=== PATIENT | male | born 1990 | race Caucasian/White ===

== ENCOUNTER 2020-03-20 14:04 | Outpatient (REF) | payer OTHER, SELFPAY | END 2020-03-20 14:05 | disposition home or self-care (01) | LOC: HO.LAB 14:04 | PROVIDERS: Visit Provider Internal Medicine | DX: Z20.822 Contact with and (suspected) exposure to COVID-19 (principal) | CPT/HCPCS: 36415; C9803; U0003 ==

== ENCOUNTER 2020-09-12 08:08 | Emergency (ER) | payer OTHER, SELFPAY ==
--- NOTE | ~2020-09-12 | US_ITS ---
EXAMINATION: US ABDOMEN LIMITED CLINICAL INFORMATION: Pain. COMPARISON: None TECHNIQUE: Real-time imaging of the right upper quadrant abdominal viscera. FINDINGS: PANCREAS: The visualized portion of the pancreas head and body are normal, portion of the pancreatic body and tail, not visualized are obscured by bowel gas. LIVER: Normal. The liver is normal in size. The liver contour is normal. Parenchymal echogenicity is normal. No focal hepatic lesion. There is no intrahepatic biliary duct dilatation seen. GALLBLADDER: There are numerous gallstones. No thickening of the gallbladder wall, no pericholecystic fluid collection, no Henderson sign. There is left epigastric pain. COMMON BILE DUCT: Normal in caliber measuring 0.3 cm in diameter. RIGHT KIDNEY: Normal. No hydronephrosis. No renal calculi or focal parenchymal lesions. The kidney measures 10.1 cm in maximum dimension. FREE FLUID: None. US/US abdomen limited IMPRESSION: There are numerous gallstones. There is however no ultrasound evidence of acute cholecystitis. If there is high index of suspicion for possible mild cholecystitis, May consider correlation with follow-up HIDA scan.
[2020-09-12 08:09] VITALS: BP 132/84; PULSE 70; O2SAT 100
[2020-09-12 08:11] VITALS: BP 137/72; PULSE 73; RESP 18; TEMP 36.8; O2SAT 99; BMI 33.7
--- NOTE | 2020-09-12 08:13 | ED_ITS ---
HPI - Abdominal Pain General Chief Complaint: Abdominal Pain Stated Complaint: abd pain Time Seen by Provider: 09/12/20 08:12 Source: patient and EMS Mode of arrival: EMS Limitations: no limitations History of Present Illness MD elicited complaint: abdominal pain Pertinent past history: none Onset (ago): hour(s) (2.5 hours) Pain Consistency: constant Location: RUQ Severity: severe Quality: stabbing Radiation: RUQ and epigastric Migration to: no migration Exacerbating factors: eating Relieving factors: nothing Associated symptoms: nausea Related Data Home Medications Medication Instructions Recorded Confirmed albuterol sulfate mg INHALATION TID 02/18/20 08/28/20 tramadol 50 mg tablet 50 mg PO DAILY PRN 03/25/20 08/28/20 Previous Rx's Medication Instructions Recorded lansoprazole 30 mg capsule,delayed 30 mg PO DAILY #30 cap 12/24/19 release tramadol 50 mg tablet 50 mg PO DAILY PRN 30 Days #30 tab 03/25/20 metaxalone 800 mg tablet 800 mg PO BID PRN 10 Days #20 tab 04/29/20 dicyclomine 20 mg tablet 20 mg PO QID #30 tab 06/16/20 omeprazole 40 mg capsule,delayed 40 mg PO DAILY #30 cap 06/17/20 release albuterol sulfate 90 mcg/actuation 1 inh INHALATION QID 30 Days #6.7 g 07/15/20 aerosol inhaler ibuprofen 600 mg tablet 600 mg PO TID PRN #30 cap 08/23/20 ibuprofen 800 mg tablet 800 mg PO Q8H PRN 10 Days #30 tab 08/25/20 hydrocodone-acetaminophen 1 tab PO Q6H PRN #8 tab 09/12/20 ondansetron 4 mg PO Q8H PRN #20 tab 09/12/20 Allergies Allergy/AdvReac Type Severity Reaction Status Date / Time Iodinated Contrast Media Allergy Unknown RASH/GENERALIZED Verified 09/12/20 08:15 [IV CONTRAST] REDNESS methylprednisolone Allergy Unknown ANAPHYLAXIS Verified 09/12/20 08:15 [From SOLU-MEDROL] Review of Systems Review of Systems Constitutional : No Weight loss, No Fever, No Chills ENT/Mouth : No sore throat, No Rhinorrhea Eyes: No Swelling, No Redness Cardiovascular : No Chest Pain, No SOB, NoEdema Respiratory : No Cough, No Sputum, No Wheezing Gastrointestinal : Positive Nausea, Positive Vomiting, no Diarrhea, positive abdominal Pain, No Hematochezia, No Melena Genitourinary : No Dysuria, No Urinary Frequency, No Hematuria, No Urgency Musculoskeletal : No joint pain, No Myalgias, No Joint Swelling Skin : No Skin Lesions, No rash Neuro : No Weakness, No Numbness, No Dizziness, No Headache Psych : No Anxiety/Panic, No Depression Heme/Lymph: No Bruising, No Lymphadenopathy Endocrine : No Polyuria, No Polydipsia All other systems reviewed and are negative. Physical Exam Vital Signs: Vital Signs: Last Vital Signs Temp 97.6 F 09/12/20 09:43 Pulse 69 09/12/20 09:43 Resp 18 09/12/20 09:43 BP 112/55 L 09/12/20 09:43 Pulse Ox 98 09/12/20 09:43 Body Mass Index 33.7 Appearance: Alert. Oriented X3. No acute distress. Eyes: Pupils equal, round and reactive to light. ENT: Pharynx normal. Neck: Normal inspection. Neck supple. CVS: Normal heart rate and rhythm. Pulses normal. Respiratory: No respiratory distress. Breath sounds normal. Abdomen: Soft and moderate RUQ epigastric ttp with Henderson's sign Skin: Skin warm and dry. Normal skin color. Normal skin turgor. Extremities: No lower extremity edema. No calf ttp Neuro: Oriented X 3. No motor deficit. No sensory deficit. Course Course Course Narrative: patient with biliary colic no signs of infection - no WBC count, LFTs chronically elevated - discussed follow up and low fat diet, he is aware, tolerating PO and pain resolved in ED MDM - Abdominal Pain MDM Narrative Medical decision making narrative: 30 yo male here with RUQ pain post eating pizza last night, at this time will obtain labs, IVF/IV morphine/toradol for pain, US to evaluate gallbladder dispo per results and findings. Differential Diagnosis Differential diagnosis: Likely gastroenteritis, gastritis and pancreatitis; Unlikely acute appendicitis Lab Data Result diagrams: 09/12/20 08:22 09/12/20 08:22 Labs: Lab Results 09/12/20 09/12/20 Range/Units 08:22 08:22 WBC 10.0 (4.8-10.8) X10*3/uL RBC 4.83 (4.60-5.80) X10*6/uL Hgb 14.5 (14.0-18.0) g/dl Hct 41.1 L (42-52) % MCV 85.1 (80-98) fL MCH 30.0 (27.0-33.0) pg MCHC 35.3 (31.0-36.0) g/dl RDW 11.3 (11.0-16.0) % Plt Count 239 (160-400) X10*3/uL MPV 9.9 (9.4-12.4) fL Immature Gran % (Auto) 0.5 H (0.0-0.4) % Neut % (Auto) 73.4 H (45-73) % Lymph % (Auto) 16.0 L (20-40) % [place] % (Auto) 9.4 (2-11) % Eos % (Auto) 0.4 (0-4) % Baso % (Auto) 0.3 (0-2) % Lymph # (Auto) 1.6 (1.2-4.9) X10*3/uL [place] # (Auto) 0.9 (0.1-1.2) X10*3/uL Eos # (Auto) 0.0 (0.0-0.4) X10*3/uL Baso # (Auto) 0.0 (0.0-0.2) X10*3/uL Abs Immat Gran (auto) 0.05 H (0.00-0.03) X10*3/uL Absolute Neuts (auto) 7.4 (2.0-8.3) X10*3/uL Absolute Nucleated RBC 0.000 (0.0-0.012) X10*3/uL Nucleated RBC % (auto) 0.0 (0.0-0.2) /100WBC Sodium 140 (135-145) mmol/L Potassium 3.5 (3.3-5.1) mmol/L Chloride 107 (96-108) mmol/L Carbon Dioxide 25 (22-29) mmol/L Anion Gap 12 (12-20) BUN 22 H (9-16) mg/dL Creatinine 0.86 (0.5-1.4) mg/dL Estim Creat Clear Calc 145.7 Estimated GFR > 60 Random Glucose 110 (60-115) mg/dL Calcium 9.5 (8.4-10.2) mg/dL Total Bilirubin 0.6 (0.0-1.0) mg/dL Direct Bilirubin 0.3 (0.0-0.5) mg/dL AST 55 H (5-37) U/L ALT 52 H (0-40) U/L Alkaline Phosphatase 57 (39-117) U/L Total Protein 6.8 (6.5-8.0) g/dL Albumin 4.3 (3.5-5.0) g/dL Lipase 31 (8-78) U/L Discharge Plan Discharge Clinical Impression: Biliary colic Patient Disposition: Home, Self-Care Instructions: Biliary Colic (ED), Low Fat Diet (ED) Additional Instructions: return to ED for any worsening symptoms or concerns Prescriptions: New hydrocodone-acetaminophen 5-325 mg tablet 1 tab PO Q6H PRN (Reason: pain) Qty: 8 RF: 0 ondansetron 4 mg tablet,disintegrating 4 mg PO Q8H PRN (Reason: nausea and vomiting) Qty: 20 RF: 0 No Action lansoprazole 30 mg capsule,delayed release(DR/EC) 30 mg PO DAILY Qty: 30 RF: 6 tramadol 50 mg tablet 50 mg PO DAILY PRNRF: 0 tramadol 50 mg tablet 50 mg PO DAILY PRN (Reason: pain) 30 Days Qty: 30 RF: 0 omeprazole 40 mg capsule,delayed release(DR/EC) 40 mg PO DAILY Qty: 30 RF: 1 albuterol sulfate [ProAir HFA] 90 mcg/actuation HFA aerosol inhaler 1 inh inhalation QID 30 Days Qty: 6.7 RF: 0 ibuprofen 600 mg tablet 600 mg PO TID PRN (Reason: for pain) Qty: 30 RF: 3 metaxalone 800 mg tablet 800 mg PO BID PRN (Reason: muscle pain) 10 Days Qty: 20 RF: 0 albuterol sulfate 2.5 mg /3 mL (0.083 %) solution for nebulization inhalation TID RF: 0 dicyclomine 20 mg tablet 20 mg PO QID Qty: 30 RF: 3 ibuprofen 800 mg tablet 800 mg PO Q8H PRN (Reason: pain) 10 Days Qty: 30 RF: 0 Referrals: Rosalia Vines MD [Physician] - 1 week [facility] Past Medical History Attestation statement: The following information was validated with the patient. Medical History Chronic lower back pain Surgical History Corneal transplant status History of bilateral cataract extraction History of eye surgery Family History Family History Father No problems noted. Mother Asthma Diabetes Hypertension Hyperlipidemia Maternal Aunt Breast cancer Chronic mental illness Paternal Aunt Cancer Maternal Uncle Leukemia Family/Other Chronic mental illness Social History Social History Housing: House Alcohol intake: never Patient Tobacco Use Status: Never used Tobacco e-Cigarette/Vaping Use: Never Used Second Hand Smoke Exposure: No Use of substances other than those prescribed or required for medical reasons: Yes Substance Use Type: Marijuana Substance Use Frequency: Occasionally Advance Directives: No Advance Directives Information Provided: No service: No Current occupational status: disabled
[2020-09-12 08:27] LABS: Basophils Percent Auto 0.3 % (0-2); Eosinophils Percent Auto 0.4 % (0-4); Hematocrit 41.1 % (42-52); Hemoglobin 14.5 g/dl (14.0-18.0); Imm Gran Abs Auto 0.05 X10*3/uL (0.00-0.03); Imm Gran Pct Auto 0.5 % (0.0-0.4); Lymphocytes Absolute Auto 1.6 X10*3/uL (1.2-4.9); MANUAL DIFF FLAG NO; Mean Corpuscular HGB Conc 35.3 g/dl (31.0-36.0); Mean Corpuscular Volume 85.1 fL (80-98); Mean Platelet Volume 9.9 fL (9.4-12.4); Monocytes Absolute Auto 0.9 X10*3/uL (0.1-1.2); Monocytes Percent Auto 9.4 % (2-11); Neutrophils Absolute Auto 7.4 X10*3/uL (2.0-8.3); Neutrophils Percent Auto 73.4 % (45-73); Platelet Count 239 X10*3/uL (160-400); Red Blood Count 4.83 X10*6/uL (4.60-5.80); Red Cell Distribution Width 11.3 % (11.0-16.0)
[2020-09-12] MEDS: ondansetron HCL 4 MG/2 ML VIAL IVPUSH (08:46)
[2020-09-12] MEDS: 0.9 % Sodium Chloride 1,000 ML 999 ML IVCONT (08:46)
[2020-09-12] MEDS: Morphine Sulfate 4 MG/ML CARTRIDGE IVPUSH (08:47)
[2020-09-12] MEDS: Ketorolac Tromethamine 30 MG/ML VIAL IVPUSH (08:48)
[2020-09-12 09:01] LABS: Alanine Aminotransferase 52 U/L (0-40); Albumin Level 4.3 g/dL (3.5-5.0); Alkaline Phosphatase 57 U/L (39-117); Anion Gap 12 (12-20); Aspartate Amino Transferase 55 U/L (5-37); Bilirubin Direct 0.3 mg/dL (0.0-0.5); Bilirubin Total 0.6 mg/dL (0.0-1.0); Blood Urea Nitrogen 22 mg/dL (9-16); Calcium 9.5 mg/dL (8.4-10.2); Carbon Dioxide 25 mmol/L (22-29); Chloride 107 mmol/L (96-108); Creatinine Clr Calc Pharmacy 145.7; Estimated Glomerular Filt Rate > 60; Glucose Random 110 mg/dL (60-115); Lipase 31 U/L (8-78); Potassium 3.5 mmol/L (3.3-5.1); Sodium 140 mmol/L (135-145); Total Protein 6.8 g/dL (6.5-8.0)
[2020-09-12 09:43] VITALS: BP 112/55; PULSE 69; RESP 18; TEMP 36.4; O2SAT 98
--- NOTE | 2020-09-12 09:45 | PC.NURSE ---
Pt states that his pain is now a zero. Awaiting results of US and disposition at this time. Pt is resting comfortably.
--- NOTE | 2020-09-12 10:33 | PC.NURSE ---
Discharged home with family.
== END 2020-09-12 10:34 | disposition home or self-care (01) ==
PROVIDERS: Emergency Provider Emergency Medicine; PCP Physician Assistant
DX: K80.50 Calculus of bile duct without cholangitis or cholecystitis without obstruction (principal)
CPT/HCPCS: 36415; 76705; 80048; 80076; 83690; 85025; 96361; 96374; 96375; 99284; 99285; J1885; J2270; J2405

== ENCOUNTER 2020-09-18 19:46 | Inpatient (IN) | payer OTHER, SELFPAY ==
--- NOTE | ~2020-09-18 | CT_ITS ---
EXAMINATION: CT ABDOMEN AND PELVIS WITHOUT CONTRAST CLINICAL INFORMATION: Gallstones, elevated LFT, question CBD stone COMPARISON: Ultrasound 09/12/2020 TECHNIQUE: Multidetector volumetric imaging was performed from the superior aspect of the liver through the pubic symphysis. Sagittal and coronal reformatted images were obtained on the technologist's workstation. This CT examination was performed using dose optimization techniques as appropriate, variously including the following: *Automated exposure control *Adjustment of mA and/or kV according to patient size (this includes techniques or standardized protocols for targeted exams where dose is matched to indication/reason for exam; i.e. extremities or head) *Use of iterative reconstruction technique DLP: 758 mGy-cm FINDINGS: LUNG BASES: The visualized lung bases are unremarkable. LIVER, GALLBLADDER, AND BILIARY TREE: The liver is normal in size, shape, and attenuation. There is redemonstration of several subcentimeter hypodensities in the liver. No biliary ductal dilatation is present. There is subtle hyperdensity in the dependent gallbladder, likely representing gallstones visible on recent ultrasound 09/12/2020. No discrete choledocholithiasis is seen, and the common bile duct appears nondilated. PANCREAS: Unremarkable. SPLEEN: Unremarkable. ADRENAL GLANDS: Unremarkable. KIDNEYS AND URETERS: The kidneys are normal in size, shape, and attenuation. Small left renal cyst is suspected. No hydronephrosis, hydroureter, or calculi seen. No perinephric stranding. BLADDER: Unremarkable. GASTROINTESTINAL TRACT: The small and large bowel are unremarkable. The appendix is unremarkable. No free fluid or free air is seen. ABDOMINAL WALL: There are small fat-containing inguinal hernias. LYMPH NODES: Normal. VASCULAR: Unremarkable. PELVIC VISCERA: Unremarkable. OSSEOUS STRUCTURES: Unremarkable. CT/CT abdomen pelvis wo con IMPRESSION: Cholelithiasis, better demonstrated on recent ultrasound 09/12/2020. No choledocholithiasis is seen, though assessment on CT is limited; if clinically warranted, this may be better assessed with MRCP. No intrahepatic or extrahepatic biliary ductal dilatation.
[2020-09-18 19:58] VITALS: BP 131/55; PULSE 78; RESP 20; TEMP 36.8; O2SAT 99; BMI 32.5
[2020-09-18 22:51] VITALS: BP 123/60; PULSE 66; RESP 18; TEMP 36.4; O2SAT 98
--- NOTE | 2020-09-18 23:22 | ED_ITS ---
HPI - Abdominal Pain General Chief Complaint: Abdominal Pain Stated Complaint: abd pain Time Seen by Provider: 09/18/20 23:21 Source: patient Mode of arrival: ambulatory Limitations: no limitations History of Present Illness HPI narrative: Patient with history of gallstone was seen here on 09/12 for a abdominal pain ultrasound showed gallstones comes here again for increased pain since afternoon today after he had lunch with nausea no vomiting patient is blind. No fever no chills Related Data Home Medications Medication Instructions Recorded Confirmed albuterol sulfate mg INHALATION TID 02/18/20 09/17/20 Previous Rx's Medication Instructions Recorded metaxalone 800 mg tablet 800 mg PO BID PRN 10 Days #20 tab 04/29/20 omeprazole 40 mg capsule,delayed 40 mg PO DAILY #30 cap 06/17/20 release albuterol sulfate 90 mcg/actuation 1 inh INHALATION QID 30 Days #6.7 g 07/15/20 aerosol inhaler ibuprofen 800 mg tablet 800 mg PO Q8H PRN 10 Days #30 tab 08/25/20 Allergies Allergy/AdvReac Type Severity Reaction Status Date / Time Iodinated Contrast Media Allergy Unknown RASH/GENERALIZED Verified 09/17/20 10:35 [IV CONTRAST] REDNESS methylprednisolone Allergy Unknown ANAPHYLAXIS Verified 09/17/20 10:35 [From SOLU-MEDROL] Review of Systems Review of Systems Yes all other systems are reviewed and are negative Physical Exam Vital Signs: Vital Signs: Last Vital Signs Temp 98.6 F 09/19/20 02:02 Pulse 65 09/19/20 02:02 Resp 20 09/19/20 02:02 BP 126/65 09/19/20 02:02 Pulse Ox 97 09/19/20 02:02 Body Mass Index 32.5 Appearance: Alert. Oriented No acute distress. Eyes: Blind ENT: Pharynx normal. Oral Mucosa moist Neck: Normal inspection. Neck supple. CVS: Normal heart rate and rhythm. Pulses normal. Respiratory: No respiratory distress. Equal air entry bilateral, no wheezing/rales/rhonchi Abdomen: Soft , slight tenderness and right upper quadrant no rebound tenderness or guarding Bowel sounds are present, no mass palpable, no CVA tenderness Skin: Skin warm and dry. Normal skin color. Normal skin turgor. Extremities: No lower extremity edema. No calf tenderness Neuro: Alert and oriented blind MDM - Abdominal Pain MDM Narrative Medical decision making narrative: Patient with gallstones was seen here on 09/12 with AST of 55 ALT of 52 today STS 180 and ALT is 170 for bilirubin is 0.9 lipase is normal alkaline phosphate normal CT scan abdomen showed gallstone without any extrahepatic or intra hepatic biliary ductal dilatation patient still complaining of pain will start patient on IV fluids morphine Zofran plan to admit for ERCP/HIDA scan tomorrow case discussed with Dr. Lopez surgeon will admit to his service Medical Records Attestation: I reviewed the patient's medical records. Lab Data Attestation: I reviewed the patient's lab results. Result diagrams: 09/18/20 23:42 09/18/20 23:42 Labs: Lab Results 09/18/20 09/18/20 Range/Units 23:42 23:42 WBC 10.6 (4.8-10.8) X10*3/uL RBC 4.77 (4.60-5.80) X10*6/uL Hgb 14.2 (14.0-18.0) g/dl Hct 41.6 L (42-52) % MCV 87.2 (80-98) fL MCH 29.8 (27.0-33.0) pg MCHC 34.1 (31.0-36.0) g/dl RDW 11.4 (11.0-16.0) % Plt Count 245 (160-400) X10*3/uL MPV 10.0 (9.4-12.4) fL Immature Gran % (Auto) 0.4 (0.0-0.4) % Neut % (Auto) 75.8 H (45-73) % Lymph % (Auto) 13.5 L (20-40) % [place] % (Auto) 9.7 (2-11) % Eos % (Auto) 0.4 (0-4) % Baso % (Auto) 0.2 (0-2) % Lymph # (Auto) 1.4 (1.2-4.9) X10*3/uL [place] # (Auto) 1.0 (0.1-1.2) X10*3/uL Eos # (Auto) 0.0 (0.0-0.4) X10*3/uL Baso # (Auto) 0.0 (0.0-0.2) X10*3/uL Abs Immat Gran (auto) 0.04 H (0.00-0.03) X10*3/uL Absolute Neuts (auto) 8.0 (2.0-8.3) X10*3/uL Absolute Nucleated RBC 0.000 (0.0-0.012) X10*3/uL Nucleated RBC % (auto) 0.0 (0.0-0.2) /100WBC Sodium 142 (135-145) mmol/L Potassium 4.4 D (3.3-5.1) mmol/L Chloride 107 (96-108) mmol/L Carbon Dioxide 28 (22-29) mmol/L Anion Gap 11 L (12-20) BUN 16 (9-16) mg/dL Creatinine 0.84 (0.5-1.4) mg/dL Estim Creat Clear Calc 146.5 Estimated GFR > 60 Random Glucose 101 (60-115) mg/dL Calcium 9.5 (8.4-10.2) mg/dL Total Bilirubin 0.9 (0.0-1.0) mg/dL Direct Bilirubin 0.5 (0.0-0.5) mg/dL AST 180 H (5-37) U/L ALT 174 H (0-40) U/L Alkaline Phosphatase 64 (39-117) U/L Total Protein 6.9 (6.5-8.0) g/dL Albumin 4.4 (3.5-5.0) g/dL Lipase 24 (8-78) U/L Discharge Plan Discharge Clinical Impression: Biliary colic Gallstone Qualifiers: Cholecystitis presence: without cholecystitis Biliary obstruction: without biliary obstruction Qualified Code(s): K80.20 - Calculus of gallbladder without cholecystitis without obstruction Patient Disposition: Admitted As Inpatient [facility] Past Medical History Medical History (Updated 09/19/20 @ 02:08 by Leo Dubose MD) Chronic lower back pain Gallstones Surgical History Corneal transplant status History of bilateral cataract extraction History of eye surgery Family History Family History Father No problems noted. Mother Asthma Diabetes Hypertension Hyperlipidemia Maternal Aunt Breast cancer Chronic mental illness Paternal Aunt Cancer Maternal Uncle Leukemia Family/Other Chronic mental illness Social History Social History Housing: House Alcohol intake: never Patient Tobacco Use Status: Never used Tobacco e-Cigarette/Vaping Use: Never Used Second Hand Smoke Exposure: No Substance Use Type: Marijuana Advance Directives: No Advance Directives Information Provided: Yes service: No Current occupational status: disabled
[2020-09-18] MEDS: traMADoL HCL 50 MG TABLET PO (23:39)
--- NOTE | 2020-09-18 23:45 | PC.NURSE ---
Labs obtained, pt medicated per MAY.
[2020-09-18 23:51] LABS: MANUAL DIFF FLAG NO
[2020-09-18 23:53] LABS: Basophils Percent Auto 0.2 % (0-2); Eosinophils Percent Auto 0.4 % (0-4); Hematocrit 41.6 % (42-52); Hemoglobin 14.2 g/dl (14.0-18.0); Imm Gran Abs Auto 0.04 X10*3/uL (0.00-0.03); Imm Gran Pct Auto 0.4 % (0.0-0.4); Lymphocytes Absolute Auto 1.4 X10*3/uL (1.2-4.9); Lymphocytes Percent Auto 13.5 % (20-40); Mean Corpuscular HGB Conc 34.1 g/dl (31.0-36.0); Mean Corpuscular Hemoglobin 29.8 pg (27.0-33.0); Mean Corpuscular Volume 87.2 fL (80-98); Monocytes Percent Auto 9.7 % (2-11); Neutrophils Percent Auto 75.8 % (45-73); Platelet Count 245 X10*3/uL (160-400); Red Blood Count 4.77 X10*6/uL (4.60-5.80); Red Cell Distribution Width 11.4 % (11.0-16.0); White Blood Count 10.6 X10*3/uL (4.8-10.8)
[2020-09-19] VITALS (14 sets, daily range): BP systolic 117–146; BP diastolic 60–91; PULSE 64–115; RESP 16–20; TEMP 36.1–37; O2SAT 95–100
[2020-09-19 00:18] LABS: Alanine Aminotransferase 174 U/L (0-40); Albumin Level 4.4 g/dL (3.5-5.0); Alkaline Phosphatase 64 U/L (39-117); Anion Gap 11 (12-20); Aspartate Amino Transferase 180 U/L (5-37); Bilirubin Direct 0.5 mg/dL (0.0-0.5); Bilirubin Total 0.9 mg/dL (0.0-1.0); Blood Urea Nitrogen 16 mg/dL (9-16); Calcium 9.5 mg/dL (8.4-10.2); Carbon Dioxide 28 mmol/L (22-29); Chloride 107 mmol/L (96-108); Creatinine Clr Calc Pharmacy 146.5; Estimated Glomerular Filt Rate > 60; Glucose Random 101 mg/dL (60-115); Lipase 24 U/L (8-78); Potassium 4.4 mmol/L (3.3-5.1); Sodium 142 mmol/L (135-145); Total Protein 6.9 g/dL (6.5-8.0)
--- NOTE | 2020-09-19 02:02 | PC.NURSE ---
MD at bedside discussing results and plan of care. MD aware of elevated pain level. VSS.
--- NOTE | 2020-09-19 02:13 | PC.NURSE ---
Plan for admission due to elevated liver enzymes. IV established. Covid swab obtained. Med Rec completed at bedside with patient. VSS.
[2020-09-19] MEDS: 0.9 % Sodium Chloride 1,000 ML 999 ML IVCONT (02:25)
[2020-09-19] MEDS: Morphine Sulfate 4 MG/ML CARTRIDGE IVPUSH ×3 (02:25→16:55)
[2020-09-19] MEDS: ondansetron HCL 4 MG/2 ML VIAL IVPUSH (02:25)
--- NOTE | 2020-09-19 02:35 | PM.HPGS ---
History of Present Illness History of Present Illness Date of Service: 09/19/20 Chief complaint: Acute cholecytitis, chloelithiasis Narrative: Jos Burt is a 30 year old male presenting with complaints of abdominal pain in the right upper quadrant. He was previously seen in the ED and determined to have mild cholecystitis due to cholelithiasis. He was scheduled to follow up with surgery, however the pain worsened and he returned to the ED for reevaluation. previous workup with ultrasound the abdomen revealed gallstones within the gallbladder. Subsequent CT of the abdomen performed upon admission to the emergency department revealed inflammation of the gallbladder suggestive of acute cholecystitis. He is admitted to the surgical service for management of this acute cholecystitis. Currently he reports continued abdominal pain in the right upper quadrant 7 to 8/10 in severity. The pain is sharp and stabbing. Review of Systems Review of Systems: Yes all other systems are reviewed and are negative Constitutional: Constitutional: Denies chills, Denies fever(s), Denies headache(s) and Reports poor appetite Eyes: Comments: Patient is blind ENT: Denies headache(s) Cardiovascular: Cardiovascular: Denies chest pain, Denies rapid heart rate, Denies irregular heart rhythm, Denies Loss of Consciousness and Denies dyspnea Respiratory: Respiratory: Denies chest congestion, Denies cough, Denies hemoptysis, Denies dyspnea and Denies wheezing Gastrointestinal: Gastrointestinal: Reports as per HPI, Reports abdominal pain, Reports heartburn, Denies diarrhea, Reports nausea and Reports vomiting Genitourinary: Genitourinary: Reports no additional male genitourinary complaints Neurologic: Denies headache(s) Psychiatric: Psychiatric: Reports no additional psychiatric complaints Hematologic/Lymphatic: Hematologic/Lymphatic: Denies lymphadenopathy Allergic/Immunologic: Allergic/Immunologic: Denies wheezing [facility] Past Medical History Medical History Chronic lower back pain Gallstones Family History Family History Father No problems noted. Mother Asthma Diabetes Hypertension Hyperlipidemia Maternal Aunt Breast cancer Chronic mental illness Paternal Aunt Cancer Maternal Uncle Leukemia Family/Other Chronic mental illness Surgical History Surgical History Corneal transplant status History of bilateral cataract extraction History of eye surgery Social History Social History Housing: House Alcohol intake: never Patient Tobacco Use Status: Never used Tobacco e-Cigarette/Vaping Use: Never Used Second Hand Smoke Exposure: No Substance Use Type: Marijuana Advance Directives: No Advance Directives Information Provided: Yes service: No Current occupational status: disabled Meds Allergies Allergy/AdvReac Type Severity Reaction Status Date / Time Iodinated Contrast Media Allergy Unknown RASH/GENERALIZED Verified 09/17/20 10:35 [IV CONTRAST] REDNESS methylprednisolone Allergy Unknown ANAPHYLAXIS Verified 09/17/20 10:35 [From SOLU-MEDROL] Active Medications: Current Medications Generic Name Dose Route Start Last Admin Trade Name Freq PRN Reason Stop Dose Admin Sodium Chloride 1,000 mls @ 999 mls/hr 09/19/20 02:15 09/19/20 02:25 Ns IVCONT 09/19/20 03:15 999 mls/hr .[id number] BORIS Administration Home Medications Medication Instructions Recorded Confirmed Last Taken Type albuterol sulfate mg INHALATION TID 02/18/20 09/17/20 Unknown History Physical Exam Vital Signs: Vital Signs: Last Vital Signs Temp 98.6 F 09/19/20 02:02 Pulse 65 09/19/20 02:02 Resp 20 09/19/20 02:02 BP 126/65 09/19/20 02:02 Pulse Ox 97 09/19/20 02:02 Body Mass Index 32.5 Const: General: cooperative, healthy appearing, acute distress, ill appearing and well groomed Nutritional Appearance: average body habitus Orientation/consciousness: patient oriented x3 Limitations: other limitations ( blindness) HENMT: Head: Yes normocephalic and Yes atraumatic Ears: hearing grossly normal bilaterally Neck: Neck: Yes trachea midline, Yes supple and Yes no JVD Resp: Effort & Inspection: normal respiratory effort, no audible wheezes, no stridor and not tachypneic Auscultation: clear to auscultation bilaterally Cardio: Jugular venous distension: no JVD Rate: regular rate Rhythm: regular rhythm Heart sounds: S1 normal heart sound present and S2 normal heart sound present GI: Palpation (GI): Soft to palpation and Tenderness to palpation present (GI) in the RUQ and Henderson's sign positive; with no rebound tenderness Percussion: Yes normal to percussion Rectal Exam - Male: Yes deferred Skin: Other: normal color, no rash, warm, dry Neuro: General: patient oriented x3 Extrem: General: Yes no clubbing, cyanosis or edema Results Results Labs: Short CBC 09/18/20 Range/Units 23:42 WBC 10.6 (4.8-10.8) X10*3/uL Hgb 14.2 (14.0-18.0) g/dl Hct 41.6 L (42-52) % Plt Count 245 (160-400) X10*3/uL BMP 09/18/20 23:42 Sodium 142 Potassium 4.4 D Chloride 107 Carbon Dioxide 28 BUN 16 Creatinine 0.84 Calcium 9.5 Liver Function 09/18/20 Range/Units 23:42 Total Bilirubin 0.9 (0.0-1.0) mg/dL Direct Bilirubin 0.5 (0.0-0.5) mg/dL AST 180 H (5-37) U/L ALT 174 H (0-40) U/L Alkaline Phosphatase 64 (39-117) U/L Albumin 4.4 (3.5-5.0) g/dL Assessment and Plan (1) Acute cholecystitis due to biliary calculus: Status: Acute 30-year-old male patient presenting with complaints of abdominal pain in the right upper quadrant of several days duration which appears to be worsening. He presented twice to the emergency department for evaluation and currently has persistent pain in the right upper quadrant. He was found to have multiple gallstones by ultrasound and a thickened gallbladder wall by CT suggestive of acute cholecystitis. He is admitted to the surgical service with plans for a laparoscopic or possible open cholecystectomy today. After discussion of the procedure, risks, and alternatives, he consents to the laparoscopic or possible open cholecystectomy. He has been added onto the operative schedule for today. (2) Asthma: Status: Acute continue albuterol sulfate inhaler. (3) GERD (gastroesophageal reflux disease): Qualifiers: Esophagitis presence: without esophagitis Qualified Code(s): K21.9 - Gastro-esophageal reflux disease without esophagitis Status: Acute Will hold his omeprazole pending surgical procedure. (4) Chronic lower back pain: Qualifiers: Back pain laterality: unspecified Sciatica presence: unspecified whether sciatica present Qualified Code(s): M54.5 - Low back pain; G89.29 - Other chronic pain Status: Acute Hold ibuprofen pending abdominal surgery. Quality Stroke Does the patient have a stroke diagnosis?: No VTE Prior VTE?: No VTE Risk Level:: Surgical - low VTE Device Contraindication: N/A - Device Ordered VTE Drug Contraindication: Treatment Not Indicated Procedures Date of Service Date of Service: 09/19/20
[2020-09-19 02:52] LABS: COVID-19 Test Negative (Negative); IDNOW Serial# 9DD0AD1C
--- NOTE | 2020-09-19 03:49 | PC.NURSE ---
Pt assisted to the bathroom, ambulating with 1 assist due to blindness. Pt reports some relief of pain, states his pain decreased to a 5/10. Pt aware of plan to await room assignment.
[2020-09-19] MEDS: Dextrose 5 % and Lactated Ring 1,000 ML 125 ML IVCONT ×2 (05:15→21:04)
[2020-09-19] MEDS: oxyCODONE HCl Immed Release 5 MG TABLET PO ×2 (06:06→14:50)
[2020-09-19] MEDS: Piperacillin Sodium/Tazobactam 3.375 GM in 0.9 % Sodium Chloride 50 ML IV (06:06)
--- NOTE | 2020-09-19 09:12 | PC.NURSE ---
pt resting in the stretcher, respirations even and unlabored. pt reports epigastric pain 7/10, denies nausea. pt aware of plan to go to surgery, and awaiting to go upstairs. vs stable. pt is npo
--- NOTE | 2020-09-19 09:17 | PC.NURSE ---
called [facility] to give report awaiting a call back
--- NOTE | 2020-09-19 09:23 | PC.NURSE ---
report given to imc rn
[2020-09-19] MEDS: 0.9 % Sodium Chloride Flush 3 ML SYRINGE IVFLUSH (09:32)
--- NOTE | 2020-09-19 12:52 | MHC.SHP ---
Pre-Procedural Eval Section A Date of Service: 09/19/20 The patient is an INPATIENT: Yes Section B Chief Complaint: Acute cholecytitis, chloelithiasis Allergies: Allergies Allergy/AdvReac Type Severity Reaction Status Date / Time Iodinated Contrast Media Allergy Unknown RASH/GENERALIZED Verified 09/17/20 10:35 [IV CONTRAST] REDNESS methylprednisolone Allergy Unknown ANAPHYLAXIS Verified 09/17/20 10:35 [From SOLU-MEDROL] Plan Diagnosis/Plan: Unchanged I have reviewed the history and physical and performed a pertinent physical examination on my patient. No changes have occurred unless specified.
[2020-09-19] MEDS: fentaNYL citrate/PF 100 MCG/2 ML VIAL 25 MCG IVPUSH ×4 (14:41→15:01)
--- NOTE | 2020-09-19 15:05 | W.PM.OPN ---
Operative Note Operative Note Date of Service: 09/19/20 Narrative: Preoperative diagnosis: Postoperative diagnosis: Same Procedure: Laparoscopic cholecystectomy Surgeon: Peyman Lopez MD Fluorescent Lamp Replacer: LACEY Gallagher Anesthesia: General endotracheal Indications for procedure: 30-year-old male patient presenting with a several day history of abdominal pain in the right upper quadrant associated with nausea and vomiting. On examination the patient is noted to be tender right upper quadrant with a positive Henderson sign. He underwent a CT of the and pelvis revealed a thickened gallbladder wall suggestive of acute cholecystitis. Ultrasound the abdomen previously revealed gallstones within the gallbladder. Operative findings: Markedly distended gallbladder with thickened gallbladder wall with fluid within the wall the gallbladder suggestive of acute cholecystitis. Multiple small gallstones were noted within the gallbladder. Specimen: Gallbladder Estimated blood loss: 25 mL Complications: None Procedure details: Patient was brought to the OR and placed in a supine position. After administering general anesthesia the patient's abdomen was prepped with ChloraPrep and draped in a sterile fashion. Local anesthesia consisting of 0.25% Sensorcaine with epinephrine was infiltrated in a periumbilical region. A 5 mm incision was made above the umbilicus in a transverse fashion. The Veress needle was then inserted while elevating abdominal cavity with towel clips. After positive drop test the abdomen was insufflated to a pressure of 15 mm of mercury. The Veress needle was then removed and a 5 mm trocar inserted. The camera was inserted in the abdomen explored. A 12 mm trocar was then placed in the epigastrium and 2 5 mm trocars placed in the right upper quadrant. The patient was placed in reverse Trendelenburg positioning and rotated to the left. The gallbladder was grasped with the fundus and retracted cephalad.. The infundibulum Was then grasped and retracted away from the liver bed. The Dolphin dissected was then used to dissect the peritoneum off the infundibulum to reveal the junction with the cystic duct. Cystic artery was noted slightly medial and posterior to the cystic duct. After obtaining a critical view the cystic duct was doubly clipped and divided. The cystic artery was then doubly clipped and divided. An additional branch of the cystic artery was noted slightly distal on the gallbladder wall was also doubly clipped and divided. The gallbladder was then dissected off the liver bed using electrocautery with an L hook. Hemostasis was assured all times using the electrocautery. When the gallbladder is completely dissected off the liver bed was placed in an Endo-Catch bag and brought out through the epigastric incision. The gallbladder was sent to pathology for further examination. The abdomen was then re-examined. The liver bed was irrigated and suctioned dry. No bleeding or bile leak could be identified. CO2 was then evacuated and all trocars removed. Fascia was closed at the epigastric incision using a [id number] 0 Polysorb suture. Skin was closed in all incisions using a subcuticular 4 0 Polysorb suture. Sterile dressings consisting of surgical glue was applied. The patient tolerated the procedure well. Sponge instrument and needle counts reported as correct. The patient was transferred to PACU in stable condition.
[2020-09-19] MEDS: Ketorolac Tromethamine 15 MG/ML VIAL IVPUSH (15:20)
[2020-09-19] MEDS: Albuterol Sulfate 90 MCG 8 GM INHALER 1 PUFF INHALE (20:28)
[2020-09-19 23:19] LABS: Glucose, Whole Blood 213 mg/dL (60-115)
[2020-09-20] VITALS (10 sets, daily range): BP systolic 110–143; BP diastolic 55–81; PULSE 80–116; RESP 18–20; TEMP 36.3–37.7; O2SAT 95–100
[2020-09-20] MEDS: Morphine Sulfate 4 MG/ML CARTRIDGE IVPUSH ×4 (03:40→21:22)
[2020-09-20] MEDS: Dextrose 5 % and Lactated Ring 1,000 ML 125 ML IVCONT ×3 (05:36→21:21)
[2020-09-20] MEDS: Albuterol Sulfate 90 MCG 8 GM INHALER 1 PUFF INHALE ×4 (08:05→20:25)
--- NOTE | 2020-09-20 10:27 | P.PNGS_ITS ---
Subjective Subjective Date of Service: 09/20/20 Interval history: Patient reports some incisional pain, dizziness when getting out of bed. Was able to eat yesterday without nausea or vomiting. Physical Exam Vital Signs: Vital Signs: Last Vital Signs Temp 98.7 F 09/20/20 07:31 Pulse 94 09/20/20 07:31 Resp 18 09/20/20 07:31 BP 137/68 09/20/20 07:31 Pulse Ox 97 09/20/20 07:31 Body Mass Index 32.5 Const: General: no acute distress Resp: Effort & Inspection: normal respiratory effort GI: Other: Trocar incisions are clean, dry, and intact. Dry dressing applied. Inspection: Yes normal to inspection Palpation (GI): Soft to palpation Extrem: General: Yes no clubbing, cyanosis or edema Progress Note: A&P Assessment and plan (1) Acute cholecystitis due to biliary calculus: Status: Acute Assessment and Plan: Patient remains hemodynamically stable status post laparoscopic cholecystectomy pod 1. his wounds are clean and intact. He is tolerating a regular diet. I will check back later today for possible discharge to home. Fall Risk Details Current Medications: Current Medications Generic Name Dose Route Start Last Admin Trade Name Freq PRN Reason Stop Dose Admin Acetaminophen 650 mg 09/19/20 04:54 Acetaminophen 325 Mg Tablet PO Q6H PRN Pain, Mild (Pain Scale 1-3) Albuterol Sulfate 1 puff 09/19/20 09:00 09/20/20 08:05 Albuterol Sulfate 90 Mcg 8 Gm Inhaler INHALE 1 puff QID BORIS Administration Dextrose/Lactated Ringer's 1,000 mls @ 125 mls/hr 09/19/20 04:54 09/20/20 05:36 D5lr IVCONT 125 mls/hr .Q8H BORIS Administration Morphine Sulfate 4 mg 09/19/20 04:54 09/20/20 08:54 Morphine Sulfate 4 Mg/Ml Cartridge IVPUSH 4 mg Q4H PRN Administration Pain, Severe (Pain Scale 7-10) Ondansetron HCl 4 mg 09/19/20 04:54 Ondansetron Hcl 4 Mg/2 Ml Vial IVPUSH Q8H PRN Nausea and Vomiting Ondansetron HCl 4 mg 09/19/20 12:22 Ondansetron Hcl 4 Mg/2 Ml Vial IVPUSH ONCE PRN Nausea and Vomiting Oxycodone HCl 5 mg 09/19/20 04:54 09/19/20 06:06 Oxycodone Hcl Immed Release 5 Mg Tablet PO 5 mg Q6H PRN Administration Pain, Moderate (Pain Scale 4-6 Pharmacy Consult 1 each 09/19/20 04:54 Consult Rx Perform Med Rec MISCELLANE ONCE PRN Consult order Sodium Chloride 3 ml 09/19/20 08:00 09/20/20 07:30 0.9 % Sodium Chloride Flush 3 Ml Syringe IVFLUSH Not Given QSHIFT [facility] Zolpidem Tartrate 5 mg 09/19/20 04:54 Zolpidem Tartrate 5 Mg Tablet PO BEDTIME PRN Insomnia Time Spent With Patient Time: Total time spent is greater than 50% in coordination of care (as documented) at patient's floor/unit and/or counseling patient: Time with patient: 15 - 24 minutes Procedures Date of Service Date of Service: 09/20/20 Quality Stroke Does the patient have a stroke diagnosis?: No VTE Prior VTE?: No VTE Risk Level:: Surgical - low VTE Device Contraindication: N/A - Device Ordered VTE Drug Contraindication: Treatment Not Indicated
[2020-09-20] MEDS: 0.9 % Sodium Chloride Flush 3 ML SYRINGE IVFLUSH (14:58)
--- NOTE | 2020-09-20 15:17 | MHC.CM.PN ---
CM MET WITH PT WHO REPORTS HE LIVES AT HOME WITH HIS AND HAS DAILY OCCUPATIONAL HEALTH PHYSICIAN SERVICES. PT WHO IS LEGALLY BLIND REPORTS HE HAS A CANE, NEBULIZER AND INHALER AT HOME. PT REQUESTED TO COMPLETE A HCP NAMING HIS , BLANCO, HIS AGENT, HOWEVER HE ALREADY HAS ONE LIKE THIS ON FILE. PT CONFIRMS HIS PCP IS LEONARDO CAT. CURRENT DC PLAN IS HOME WITH RESUMPTION OF OCCUPATIONAL HEALTH PHYSICIAN TO TRANSPORT
[2020-09-21 03:15] VITALS: BP 150/64; PULSE 115; RESP 20; TEMP 37.3; O2SAT 95
[2020-09-21] MEDS: Morphine Sulfate 4 MG/ML CARTRIDGE IVPUSH (03:57)
[2020-09-21 04:51] VITALS: PULSE 108; O2SAT 93
[2020-09-21] MEDS: Albuterol/Iprat 2.5/0.5MG 3 ML AMPUL.NEB INHALE (04:51)
[2020-09-21] MEDS: Dextrose 5 % and Lactated Ring 1,000 ML 125 ML IVCONT (05:57)
[2020-09-21 07:12] VITALS: BP 127/64; PULSE 118; RESP 18; TEMP 37.2; O2SAT 96
--- NOTE | 2020-09-21 07:37 | PM.DS ---
DS: Providers Provider Date of Service: 09/21/20 Date of admission: 09/19/20 02:29 Primary care physician: Jean Bryant PA-C Discharging clinician: Peyman Lopez DS: Diagnosis Discharge Diagnosis (1) Acute cholecystitis due to biliary calculus: Status: Acute DS: Medications Discharge Medications Home Medications: Home Medications Medication Instructions Recorded Confirmed albuterol sulfate mg INHALATION TID 02/18/20 09/17/20 Previous Rx's Medication Instructions Recorded metaxalone 800 mg tablet 800 mg PO BID PRN 10 Days #20 tab 04/29/20 omeprazole 40 mg capsule,delayed 40 mg PO DAILY #30 cap 06/17/20 release albuterol sulfate 90 mcg/actuation 1 inh INHALATION QID 30 Days #6.7 g 07/15/20 aerosol inhaler ibuprofen 800 mg tablet 800 mg PO Q8H PRN 10 Days #30 tab 08/25/20 oxycodone 5 mg PO Q6H PRN #14 tab 09/21/20 DS: Summary Hospital Course Hospital Course: Jos Burt is a 30 year old male presenting with complaints of abdominal pain in the right upper quadrant. He was previously seen in the ED and determined to have mild cholecystitis due to cholelithiasis. He was scheduled to follow up with surgery, however the pain worsened and he returned to the ED for reevaluation. His previous workup with ultrasound of the abdomen revealed gallstones within the gallbladder. Subsequent CT of the abdomen performed upon admission to the emergency department revealed inflammation of the gallbladder suggestive of acute cholecystitis. He was admitted to the surgical service on 09/18/2020 for management of this acute cholecystitis. Currently he reports continued abdominal pain in the right upper quadrant 7 to 8/10 in severity. The pain is sharp and stabbing. On examination the patient is found a be alert and awake. He is visually impaired. Lungs are clear bilaterally. Abdomen is soft but tender specially in the right upper quadrant with a positive Henderson sign. There is no rebound guarding, or rigidity. Findings are suggestive of acute cholecystitis due to cholelithiasis. The patient was admitted made NPO, started on IV fluids. Arrangements were made for laparoscopic cholecystectomy on the 2nd hospital day, 09/19/2020. On that date he was taken for laparoscopic cholecystectomy in found to have evidence of acute cholecystitis. He tolerated the procedure well with no immediate complications. Postoperatively he was started on a regular diet which he tolerated well without nausea or vomiting. On the next day, postoperative day 1, he reported complaints of dizziness when getting up to walk. He denied chest pain, shortness of breath, headache, or other associated symptoms. He continued to tolerate a regular diet without nausea or vomiting. The patient was therefore observed for another 24 hours. On postoperative day 2, the patient felt much improved with no further dizziness. He continues to tolerate a regular diet without nausea or vomiting. He feels ready for discharge to home. On examination his wounds were clean and intact without evidence of infection or hernia. He is to be discharged to home with follow-up in the office in approximately 1 week. He should avoid all lifting greater than 10 lb and avoid fatty / fried foods for the next month. Time Spent with Patient Time attestation: Total time spent providing and/or coordinating discharge services: Discharge coordination time: Less than 30 minutes Quality: Stroke Does the patient have a stroke diagnosis?: No Physical Exam Vital Signs: Vital Signs: Last Vital Signs Temp 98.9 F 09/21/20 07:12 Pulse 118 H 09/21/20 07:12 Resp 18 09/21/20 07:12 BP 127/64 09/21/20 07:12 Pulse Ox 96 09/21/20 07:12 Body Mass Index 32.5 Const: General: comfortable and no acute distress Eyes: Sclerae: sclerae normal EOM: EOMs intact bilaterally Resp: Effort & Inspection: normal respiratory effort, no audible wheezes and no cough GI: Palpation (GI): Soft to palpation ( Well-healed incisions), nontender, no guarding and not rigid Skin: General skin exam: no rashes or lesions noted Extrem: General: Yes no clubbing, cyanosis or edema DS: Data Data Completed and Pending Pending studies at discharge: Pending at discharge 09/19/20 14:38 Surgical [PTH] Routine Discharge Plan Discharge Patient Disposition: Home, Self-Care Discharge Diagnosis: Acute cholecystitis due to cholelithiasis Referrals: Jean Bryant PA-C [Primary Care Provider] - 1 Week Peyman Lopez MD [Physician] - 1 Week Discharge Medications: New oxycodone 5 mg tablet 5 mg PO Q6H PRN (Reason: pain) Qty: 14 RF: 0 Continued omeprazole 40 mg capsule,delayed release(DR/EC) 40 mg PO DAILY Qty: 30 RF: 1 albuterol sulfate [ProAir HFA] 90 mcg/actuation HFA aerosol inhaler 1 inh inhalation QID 30 Days Qty: 6.7 RF: 0 metaxalone 800 mg tablet 800 mg PO BID PRN (Reason: muscle pain) 10 Days Qty: 20 RF: 0 albuterol sulfate 2.5 mg /3 mL (0.083 %) solution for nebulization inhalation TID RF: 0 ibuprofen 800 mg tablet 800 mg PO Q8H PRN (Reason: pain) 10 Days Qty: 30 RF: 0 Discharge Orders: Discharge Order (Routine); Ordered 09/21/20 Ordered By: Peyman Lopez Diet: low fat, low cholesterol Activity on Discharge: No heavy lifting Stand Alone Forms: Patient Portal Discharge page Activity Restrictions/Additional Instructions: No lifting > 10 pounds for 2 weeks No driving for one week Follow up in office in one week. Care Plan Goals: Resume normal activity and diet after 2 weeks Health Concerns: Abdominal pain right upper quadrant Plan of Treatment: Laparoscopic cholecystectomy Assessment: Acute cholecystitis due to cholelithiasis Discharge Date/Time: 09/21/20 09:35
[2020-09-21] MEDS: Albuterol Sulfate 90 MCG 8 GM INHALER 1 PUFF INHALE (08:07)
[2020-09-21 08:08] VITALS: PULSE 100; O2SAT 93
--- NOTE | 2020-09-21 08:23 | MHC.CM.PN ---
Patient has been medically cleared for dc to home today, no services.
--- NOTE | 2020-09-21 14:07 | PM.PNGS ---
Subjective Subjective Date of Service: 09/21/20 Interval history: Patient feels much improved this morning with no abdominal pain, nausea, vomiting, or dizziness. He tolerated his regular diet yesterday without difficulty. He feels ready for discharge to home Physical Exam Vital Signs: Vital Signs: Last Vital Signs Temp 98.9 F 09/21/20 07:12 Pulse 100 09/21/20 08:08 Resp 18 09/21/20 07:12 BP 127/64 09/21/20 07:12 Pulse Ox 96 09/21/20 07:12 Body Mass Index 32.5 Const: General: cooperative, comfortable, no acute distress and well developed Nutritional Appearance: well nourished Orientation/consciousness: patient oriented x3 Limitations: no limitations Eyes: Sclerae: sclerae normal Resp: Effort & Inspection: normal respiratory effort, no cough and no stridor GI: Other: well-healed incisions following laparoscopic cholecystectomy. Soft, nondistended, nontender. Inspection: Yes normal to inspection Skin: Other: Warm, dry, no rash Neuro: General: patient oriented x3 Extrem: General: Yes no clubbing, cyanosis or edema Progress Note: A&P Assessment and plan (1) Acute cholecystitis due to biliary calculus: Status: Acute Assessment and Plan: 30-year-old male patient status post laparoscopic cholecystectomy postop day 2. Patient tolerated the procedure well and his wounds are healing nicely. His initial dizziness is now much improved and he feels ready for discharge to home. He will follow up in the office in approximately 1 week for wound examination. He should return to the hospital for fever, chills, nausea, vomiting, or increased abdominal pain. He should avoid lifting greater than 10 lb for the next 2 weeks and avoid fatty / greasy foods for the next month. He expressed understanding and agrees with the plan. Time Spent With Patient Time: Total time spent is greater than 50% in coordination of care (as documented) at patient's floor/unit and/or counseling patient: Time with patient: 15 - 24 minutes Procedures Date of Service Date of Service: 09/21/20 Quality Stroke Does the patient have a stroke diagnosis?: No VTE Prior VTE?: No VTE Risk Level:: Surgical - low VTE Device Contraindication: N/A - Device Ordered VTE Drug Contraindication: Treatment Not Indicated
--- NOTE | 2020-09-21 14:24 | HO.POSTANES ---
Post Anesthesia Evaluation Post Anesthesia Evaluation Vital Signs: Vital Signs Temp Pulse Resp BP Pulse Ox 09/21/20 08:08 100 09/21/20 07:12 98.9 F 118 H 18 127/64 96 09/21/20 04:51 108 H 09/21/20 03:15 99.1 F 115 H 20 150/64 H 95 Anesthesia: General Endotracheal-GETA Mental Status: Awake Pain Control: Satisfactory Nausea/Vomiting: None Hydration: Adequate Anesthesia-Related Issues: No Anes. Related Issues
== END 2020-09-21 09:35 | disposition home or self-care (01) | DRG 263 ==
LOC: HO.ED 09-19 02:08 → HO.EDOVER 09-19 02:55 → HO.IMC 09-19 08:04
PROVIDERS: Admitting Provider Surgery; Emergency Provider Internal Medicine; PCP Physician Assistant; Visit Provider Surgery
PROC: 0FT44ZZ Resection of Gallbladder, Percutaneous Endoscopic Approach (ICD-10-PCS; CPT 47562; principal; 2020-09-19 10:30)
DX: K80.00 Calculus of gallbladder with acute cholecystitis without obstruction (principal); G89.29 Other chronic pain; M54.5 Low back pain; Z20.822 Contact with and (suspected) exposure to COVID-19; Z79.1 Long term (current) use of non-steroidal anti-inflammatories (NSAID); Z79.899 Other long term (current) drug therapy
CPT/HCPCS: 47562; 36415; 74176; 80048; 80076; 82947; 83690; 85025; 87635; 88304; 94640; 99024; 99285; J0131; J1100; J1885; J2250; J2270; J2405; J2543; J3010

== ENCOUNTER 2020-09-22 22:33 | Inpatient (IN) | payer OTHER, SELFPAY ==
--- NOTE | ~2020-09-22 | CT_ITS ---
EXAMINATION: CT ABDOMEN AND PELVIS WITH CONTRAST CLINICAL INFORMATION: Status post laparoscopic cholecystectomy, severe pain and decreased hemoglobin COMPARISON: 09/19/2020 TECHNIQUE: Multidetector volumetric images were obtained from the superior aspect of the liver through the pubic symphysis following administration 85 mL of Omnipaque 350 intravenous contrast. Sagittal and coronal reformatted images were obtained on the technologist's workstation. Oral contrast: No This CT examination was performed using dose optimization techniques as appropriate, variously including the following: *Automated exposure control *Adjustment of mA and/or kV according to patient size (this includes techniques or standardized protocols for targeted exams where dose is matched to indication/reason for exam; i.e. extremities or head) *Use of iterative reconstruction technique DLP: 863 mGy-cm FINDINGS: LUNG BASES: There are streaky regions of opacity in the bilateral lower lobes, favoring atelectasis. LIVER, GALLBLADDER, AND BILIARY TREE: Redemonstration of numerous scattered subcentimeter hypodensities in the liver. Patient is status post cholecystectomy. There is perihepatic hyperdense fluid, predominantly adjacent to the right hepatic lobe and extending along the right paracolic gutter into the pelvis; this is most consistent with moderate volume hemoperitoneum given the clinical history and recent surgery. PANCREAS: Unremarkable. Hyperdense perisplenic fluid tracks along the left paracolic gutter. SPLEEN: Unremarkable. ADRENAL GLANDS: Unremarkable. KIDNEYS AND URETERS: The kidneys are normal in size, shape, and attenuation. Small hypodensities in the kidneys favor cysts. No hydronephrosis, hydroureter, or obstructing calculi seen. No perinephric stranding. BLADDER: Unremarkable. GASTROINTESTINAL TRACT: The small and large bowel are unremarkable. The appendix is unremarkable. ABDOMINAL WALL: There are regions of subcutaneous stranding in the anterior abdominal wall and focus of gas, in keeping with recent surgery. LYMPH NODES: Normal. VASCULAR: Unremarkable. PELVIC VISCERA: Unremarkable. OSSEOUS STRUCTURES: Unremarkable. CT/CT abdomen pelvis w con IMPRESSION: 1. Moderate volume hemoperitoneum, predominantly adjacent to the right hepatic lobe and tracking into the pelvis. 2. Status post cholecystectomy. 3. Bibasilar pulmonary opacities favoring atelectasis. This critical result was discussed with LINDA Espinosa on 09/23/2020 12:56 AM, and it was ascertained that the content and urgency of the report was understood at the time of direct communication.
[2020-09-22 22:58] VITALS: BP 119/72; BP 132/62; PULSE 119; PULSE 129; RESP 20; TEMP 37.6; O2SAT 96; O2SAT 97; BMI 31.9
--- NOTE | 2020-09-22 23:06 | ED_ITS ---
HPI - Abdominal Pain General Chief Complaint: Abdominal Pain Stated Complaint: abd pain Time Seen by Provider: 09/22/20 22:39 Source: patient Mode of arrival: EMS History of Present Illness HPI narrative: 30-year-old male with history of asthma presents with significant upper abdominal pain and is POD#3 after laparoscopic cholecystectomy. Patient states this is been associated with chills, shortness of breath, nausea and otherwise denies inability to pass flatus or urinary symptoms. Patient states he tried to take his oxycodone at home however this did not help his pain. Related Data Previous Rx's Medication Instructions Recorded metaxalone 800 mg tablet 800 mg PO BID PRN 10 Days #20 tab 04/29/20 omeprazole 40 mg capsule,delayed 40 mg PO DAILY #30 cap 06/17/20 release albuterol sulfate 90 mcg/actuation 1 inh INHALATION QID 30 Days #6.7 g 07/15/20 aerosol inhaler ibuprofen 800 mg tablet 800 mg PO Q8H PRN 10 Days #30 tab 08/25/20 albuterol sulfate 2.5 mg INHALATION TID PRN 30 Days 09/21/20 #75 ml oxycodone 5 mg PO Q6H PRN #14 tab 09/21/20 nebulizer accessories #1 ea 09/22/20 Allergies Allergy/AdvReac Type Severity Reaction Status Date / Time Iodinated Contrast Media Allergy Unknown RASH/GENERALIZED Verified 09/17/20 10:35 [IV CONTRAST] REDNESS methylprednisolone Allergy Unknown ANAPHYLAXIS Verified 09/17/20 10:35 [From SOLU-MEDROL] Review of Systems Review of Systems Pertinent positives and negatives as stated in HPI 10 point review of systems is otherwise negative. Physical Exam Vital Signs: Vital Signs: Last Vital Signs Temp 99.6 F 09/22/20 22:58 Pulse 119 H 09/22/20 22:58 Resp 20 09/22/20 22:58 BP 119/72 09/22/20 22:58 Pulse Ox 96 09/22/20 22:58 Body Mass Index 31.9 VITAL SIGNS: Reviewed. GENERAL: Well developed, well nourished, in no acute distress. HEAD: Normocephalic/atraumatic, EYES: PERRLA, EOMI patient with bilateral cataracts since OROPHARYNX: no oral lesions noted, posterior pharynx clear NECK: Supple, no adenopathy LUNGS: Tachypneic, Normal breath sounds, no wheeze/rhonchi/rales. SpO2<96> CARDIOVASCULAR: Tachycardic and rhythm without noted murmurs ABDOMEN: Soft, diffuse abdominal tenderness maximal in the epigastric/right upper quadrant region with guarding, incision sites are C/D/I, non-distended with hypoactive bowel sounds. SKIN: Inspection of the skin reveals no rashes or jaundice NEUROLOGIC: Alert and oriented x 4. Strength and sensation to light touch were grossly intact x 4. Course Course Course Narrative: 30-year-old male with history and clinical presentation consistent with likely retained stone and pancreatitis. Review of all investigations significant for hemoperitoneum. Case discussed immediately with [employer] school special education teacher Surgical Services and patient will be going to the OR and has been typed and crossed matched as well as receiving IV fluids. MDM - Abdominal Pain Lab Data Result diagrams: 09/22/20 23:31 09/22/20 23:31 Labs: Lab Results 09/22/20 09/22/20 09/22/20 Range/Units 23:31 23:31 23:31 WBC 12.3 H (4.8-10.8) X10*3/uL RBC 2.87 L D (4.60-5.80) X10*6/uL Hgb 8.8 L D (14.0-18.0) g/dl Hct 25.1 L D (42-52) % MCV 87.5 (80-98) fL MCH 30.7 (27.0-33.0) pg MCHC 35.1 (31.0-36.0) g/dl RDW 11.6 (11.0-16.0) % Plt Count 211 (160-400) X10*3/uL MPV 9.8 (9.4-12.4) fL Immature Gran % (Auto) 0.8 H (0.0-0.4) % Neut % (Auto) 81.1 H (45-73) % Lymph % (Auto) 8.3 L (20-40) % Addison % (Auto) 9.6 (2-11) % Eos % (Auto) 0.0 (0-4) % Baso % (Auto) 0.2 (0-2) % Lymph # (Auto) 1.0 L (1.2-4.9) X10*3/uL Addison # (Auto) 1.2 (0.1-1.2) X10*3/uL Eos # (Auto) 0.0 (0.0-0.4) X10*3/uL Baso # (Auto) 0.0 (0.0-0.2) X10*3/uL Abs Immat Gran (auto) 0.10 H (0.00-0.03) X10*3/uL Absolute Neuts (auto) 10.0 H (2.0-8.3) X10*3/uL Absolute Nucleated RBC 0.040 H (0.0-0.012) X10*3/uL Nucleated RBC % (auto) 0.3 H (0.0-0.2) /100WBC Sodium 137 (135-145) mmol/L Potassium 4.1 (3.3-5.1) mmol/L Chloride 103 (96-108) mmol/L Carbon Dioxide 25 (22-29) mmol/L Anion Gap 13 (12-20) BUN 10 (9-16) mg/dL Creatinine 0.84 (0.5-1.4) mg/dL Estim Creat Clear Calc 145.2 Estimated GFR > 60 Random Glucose 103 (60-115) mg/dL Lactic Acid 0.9 (0.5-2.0) mmol/L Calcium 8.9 D (8.4-10.2) mg/dL Total Bilirubin 0.9 (0.0-1.0) mg/dL AST 14 D (5-37) U/L ALT 47 H (0-40) U/L Alkaline Phosphatase 54 (39-117) U/L Total Protein 6.4 L (6.5-8.0) g/dL Albumin 4.0 (3.5-5.0) g/dL Lipase 11 (8-78) U/L Blood Type Crossmatch 09/23/20 Range/Units 00:46 WBC (4.8-10.8) X10*3/uL RBC (4.60-5.80) X10*6/uL Hgb (14.0-18.0) g/dl Hct (42-52) % MCV (80-98) fL MCH (27.0-33.0) pg MCHC (31.0-36.0) g/dl RDW (11.0-16.0) % Plt Count (160-400) X10*3/uL MPV (9.4-12.4) fL Immature Gran % (Auto) (0.0-0.4) % Neut % (Auto) (45-73) % Lymph % (Auto) (20-40) % Addison % (Auto) (2-11) % Eos % (Auto) (0-4) % Baso % (Auto) (0-2) % Lymph # (Auto) (1.2-4.9) X10*3/uL Addison # (Auto) (0.1-1.2) X10*3/uL Eos # (Auto) (0.0-0.4) X10*3/uL Baso # (Auto) (0.0-0.2) X10*3/uL Abs Immat Gran (auto) (0.00-0.03) X10*3/uL Absolute Neuts (auto) (2.0-8.3) X10*3/uL Absolute Nucleated RBC (0.0-0.012) X10*3/uL Nucleated RBC % (auto) (0.0-0.2) /100WBC Sodium (135-145) mmol/L Potassium (3.3-5.1) mmol/L Chloride (96-108) mmol/L Carbon Dioxide (22-29) mmol/L Anion Gap (12-20) BUN (9-16) mg/dL Creatinine (0.5-1.4) mg/dL Estim Creat Clear Calc Estimated GFR Random Glucose (60-115) mg/dL Lactic Acid (0.5-2.0) mmol/L Calcium (8.4-10.2) mg/dL Total Bilirubin (0.0-1.0) mg/dL AST (5-37) U/L ALT (0-40) U/L Alkaline Phosphatase (39-117) U/L Total Protein (6.5-8.0) g/dL Albumin (3.5-5.0) g/dL Lipase (8-78) U/L Blood Type B Positive Crossmatch See Detail Discharge Plan Discharge Clinical Impression: Hemoperitoneum Patient Disposition: Admitted As Inpatient [facility] Past Medical History Source: nursing notes reviewed Medical History Chronic lower back pain Gallstones Surgical History Corneal transplant status History of bilateral cataract extraction History of eye surgery Family History Family History Father No problems noted. Mother Asthma Diabetes Hypertension Hyperlipidemia Maternal Aunt Breast cancer Chronic mental illness Paternal Aunt Cancer Maternal Uncle Leukemia Family/Other Chronic mental illness Social History Social History Household Members: Spouse and Children Housing: House Do you presently have visiting nurse or other home services: Yes ([employer]) Alcohol intake: never Patient Tobacco Use Status: Never used Tobacco e-Cigarette/Vaping Use: Never Used Second Hand Smoke Exposure: No Substance Use Type: Marijuana Advance Directives: No Advance Directives Information Provided: No service: No Current occupational status: disabled
[2020-09-22] MEDS: fentaNYL citrate/PF 100 MCG/2 ML VIAL 25 MCG IVPUSH (23:17)
[2020-09-22] MEDS: 0.9 % Sodium Chloride 1,000 ML 999 ML IV (23:17)
[2020-09-22 23:36] LABS: Basophils Percent Auto 0.2 % (0-2); Hematocrit 25.1 % (42-52); Hemoglobin 8.8 g/dl (14.0-18.0); Imm Gran Pct Auto 0.8 % (0.0-0.4); Lymphocytes Percent Auto 8.3 % (20-40); MANUAL DIFF FLAG NO; Mean Corpuscular HGB Conc 35.1 g/dl (31.0-36.0); Mean Corpuscular Hemoglobin 30.7 pg (27.0-33.0); Mean Corpuscular Volume 87.5 fL (80-98); Mean Platelet Volume 9.8 fL (9.4-12.4); Monocytes Absolute Auto 1.2 X10*3/uL (0.1-1.2); Monocytes Percent Auto 9.6 % (2-11); NRBC Pct Auto 0.3 /100WBC (0.0-0.2); Neutrophils Percent Auto 81.1 % (45-73); Platelet Count 211 X10*3/uL (160-400); Red Blood Count 2.87 X10*6/uL (4.60-5.80); Red Cell Distribution Width 11.6 % (11.0-16.0); White Blood Count 12.3 X10*3/uL (4.8-10.8)
[2020-09-22 23:57] LABS: Lactic Acid 0.9 mmol/L (0.5-2.0)
[2020-09-23] VITALS (26 sets, daily range): BP systolic 116–140; BP diastolic 62–77; PULSE 87–122; RESP 11–28; TEMP 37.1–38; O2SAT 94–98; BMI 33.8
[2020-09-23 00:03] LABS: Alanine Aminotransferase 47 U/L (0-40); Alkaline Phosphatase 54 U/L (39-117); Anion Gap 13 (12-20); Aspartate Amino Transferase 14 U/L (5-37); Bilirubin Total 0.9 mg/dL (0.0-1.0); Blood Urea Nitrogen 10 mg/dL (9-16); Calcium 8.9 mg/dL (8.4-10.2); Carbon Dioxide 25 mmol/L (22-29); Chloride 103 mmol/L (96-108); Creatinine Clr Calc Pharmacy 145.2; Estimated Glomerular Filt Rate > 60; Glucose Random 103 mg/dL (60-115); Lipase 11 U/L (8-78); Potassium 4.1 mmol/L (3.3-5.1); Sodium 137 mmol/L (135-145); Total Protein 6.4 g/dL (6.5-8.0)
[2020-09-23] MEDS: HYDROmorphone HCl 0.5 MG/0.5 ML SYRINGE IVPUSH ×2 (00:03→01:16)
[2020-09-23] MEDS: iohexoL 350 MG/ML 100 ML INFUS..BTL 85 ML IV (00:34)
[2020-09-23] MEDS: 0.9 % Sodium Chloride 1,000 ML 999 ML IV (00:44)
--- NOTE | 2020-09-23 01:26 | PM.HPGS ---
History of Present Illness History of Present Illness Date of Service: 09/23/20 Chief complaint: abd pain Narrative: Jos Burt is a 30 year old male presenting with complaints of abdominal pain in the abdomen generalized, status post laparoscopic cholecystectomy on 09/19/2020 for acute cholecystitis due to cholelithiasis. The patient was discharged home on 09/21/2020 in stable condition. During the night he began to have increased abdominal pain throughout the abdomen return to the emergency department. He was noted to have a drop in his hemoglobin from 14.[address] of the abdomen and pelvis revealed bilateral isodense fluid suggestive of hemoperitoneum. Review of Systems Review of Systems: Yes all other systems are reviewed and are negative Constitutional: Constitutional: Denies chills and Denies fever(s) Cardiovascular: Cardiovascular: Denies chest pain, Reports rapid heart rate, Denies irregular heart rhythm and Reports dyspnea Respiratory: Respiratory: Denies cough, Reports dyspnea, Denies stridor and Denies wheezing Gastrointestinal: Gastrointestinal: Reports as per HPI Hematologic/Lymphatic: Hematologic/Lymphatic: Reports as per HPI Allergic/Immunologic: Allergic/Immunologic: Denies wheezing PMFSH Past Medical History Medical History Chronic lower back pain Gallstones Family History Family History Father No problems noted. Mother Asthma Diabetes Hypertension Hyperlipidemia Maternal Aunt Breast cancer Chronic mental illness Paternal Aunt Cancer Maternal Uncle Leukemia Family/Other Chronic mental illness Surgical History Surgical History Corneal transplant status History of bilateral cataract extraction History of eye surgery Social History Social History Household Members: Spouse and Children Housing: House Do you presently have visiting nurse or other home services: Yes ([employer]) Alcohol intake: never Patient Tobacco Use Status: Never used Tobacco e-Cigarette/Vaping Use: Never Used Second Hand Smoke Exposure: No Substance Use Type: Marijuana Advance Directives: No Advance Directives Information Provided: No service: No Current occupational status: disabled Meds Allergies Allergy/AdvReac Type Severity Reaction Status Date / Time Iodinated Contrast Media Allergy Unknown RASH/GENERALIZED Verified 09/17/20 10:35 [IV CONTRAST] REDNESS methylprednisolone Allergy Unknown ANAPHYLAXIS Verified 09/17/20 10:35 [From SOLU-MEDROL] Active Medications: Current Medications Generic Name Dose Route Start Last Admin Trade Name Melania PRN Reason Stop Dose Admin Sodium Chloride 1,000 mls @ 999 mls/hr 09/23/20 00:36 09/23/20 01:17 Ns IV 09/23/20 01:36 Infused .Q1H1M STA Infusion Physical Exam Vital Signs: Vital Signs: Last Vital Signs Temp 98.8 F 09/23/20 01:17 Pulse 120 H 09/23/20 01:17 Resp 18 09/23/20 01:17 BP 136/65 09/23/20 01:17 Pulse Ox 98 09/23/20 01:17 Body Mass Index 31.9 Const: General: cooperative, acute distress and anxious Nutritional Appearance: well nourished Limitations: other limitations (Seeing impaired) Resp: Effort & Inspection: normal respiratory effort Cardio: Jugular venous distension: no JVD Rate: tachycardic Rhythm: regular rhythm GI: Other: Distended, well-healed trocar incisions. Tender diffusely. No ecchymosis Skin: Other: Warm and dry, no rash Extrem: Other: No peripheral edema Results Results Labs: Short CBC 09/22/20 Range/Units 23:31 WBC 12.3 H (4.8-10.8) X10*3/uL Hgb 8.8 L D (14.0-18.0) g/dl Hct 25.1 L D (42-52) % Plt Count 211 (160-400) X10*3/uL BMP 09/22/20 23:31 Sodium 137 Potassium 4.1 Chloride 103 Carbon Dioxide 25 BUN 10 Creatinine 0.84 Calcium 8.9 D Liver Function 09/22/20 Range/Units 23:31 Total Bilirubin 0.9 (0.0-1.0) mg/dL AST 14 D (5-37) U/L ALT 47 H (0-40) U/L Alkaline Phosphatase 54 (39-117) U/L Albumin 4.0 (3.5-5.0) g/dL Assessment and Plan (1) Hemoperitoneum: Status: Acute 30-year-old male patient status post laparoscopic cholecystectomy 3 days prior now with evidence of intra-abdominal bleeding with a drop of hemoglobin and hematocrit. CT reveals isodense fluid in both gutters suggestive of hemoperitoneum. I discussed the probability of intra-abdominal bleeding related to the prior surgery and recommended exploratory laparotomy. After discussion of the procedure, risks, and alternatives, he consents to the surgery. Quality Stroke Does the patient have a stroke diagnosis?: No VTE Prior VTE?: No VTE Risk Level:: Surgical - low VTE Device Contraindication: N/A - Device Ordered VTE Drug Contraindication: Treatment Not Tolerated (Intra-abdominal bleeding) Procedures Date of Service Date of Service: 09/23/20
[2020-09-23 01:37] LABS: COVID-19 Test Negative (Negative); IDNOW Serial# 9DD0AD1C
--- NOTE | 2020-09-23 03:44 | W.PM.OPN ---
Operative Note Operative Note Date of Service: 09/23/20 Narrative: Preoperative diagnosis: Postoperative bleeding status post laparoscopic cholecystectomy Postoperative diagnosis: Same Procedure: Exploratory laparotomy, hemostasis postoperative bleeding Surgeon: Peyman Lopez MD [employer] Tig Welder: No physician Anesthesia: General endotracheal Indications for procedure: 30-year-old male patient status post laparoscopic cholecystectomy on 09/19/2020 for acute cholecystitis. Patient was subsequently discharged home on 09/21/2020 in stable condition. Over the next 24 hours however the patient began to have increased abdominal pain and return to the on 09/22/2020. He was noted to be diffusely tender and CBC revealed a drop in his hemoglobin hematocrit. Subsequent CT of the abdomen and pelvis confirmed hemoperitoneum. He presents for exploratory laparotomy with control of the postoperative bleeding. Operative findings: Approximately 750 mL of clotted blood and liquid blood noted within the abdominal cavity. No bright red blood was identified only dark venous blood. Adherent clot was identified on the liver edge at the gallbladder fossa. No active bleeding was noted at the time of surgery. The site was irrigated and observed for any evidence of ongoing bleeding. No ongoing bleeding could be identified. Specimen: None Estimated blood loss: 750 mL Complications: None Procedure details: Patient was brought to the OR and placed in a supine position. After administering general anesthesia the patient's abdomen was prepped with ChloraPrep and draped in a sterile fashion. A surgical time-out was called the consent confirmed. Patient received preoperative antibiotics and Venodyne boots were in place. In addition patient was started on transfusions prior to the onset of surgery. Local anesthesia consisting of 0.5% Sensorcaine was infiltrated in a subcostal location on the right side. A right subcostal incision was then created using the previous trocar incisions. The incision was carried down through subcutaneous tissue up to the anterior rectus sheath. This was then incised with electrocautery. Rectus muscle was then incised with electrocautery. Hemostasis was assured all times using electrocautery. Posterior sheath and peritoneum were then entered. A large amount of clot was immediately identified. This was mostly along the right gutter and over the dome of the liver. This was evacuated using suction. The liver edge was identified in the gallbladder fossa examined closely. A pack was applied to the gallbladder fossa while the remaining intra-abdominal blood was evacuated. No other areas of bleeding could be identified in the abdominal cavity. The gallbladder fossa was irrigated with saline solution and examined closely. Adherent clot was identified on the liver edge which seemed indicate the site of bleeding. No active bleeding was noted however at the time of surgery. This was packed for approximately 10 minutes and observed. Re-examination revealed no evidence of ongoing bleeding. The gallbladder fossa was then packed with Surgicel and again observed. Once again no active bleeding could be identified. A large Keyon-Jimenez drain was then placed at the gallbladder fossa and brought out through a separate stab wound in the right lower quadrant. Wounds were again checked for hemostasis. Peritoneum was then closed using a running 0 Polysorb suture. Posterior sheath and anterior sheath were both individually closed using a running 0 Polysorb suture. Dermis was reapproximated using interrupted 3-0 Polysorb sutures and skin was closed using skin brian. Sterile dressings were then applied. The patient remained stable throughout the procedure and was transferred to PACU in stable condition. Sponge, instrument, and needle counts reported as correct.
--- NOTE | 2020-09-23 03:49 | P.CONAN_ITS ---
[facility] Active Problems Active Problems: All Active Problems (Updated 09/23/20 @ 01:06 by Adrianne eng MD) Hemoperitoneum (Acute) Acute cholecystitis due to biliary calculus (Acute) Gallstone (Acute) Biliary colic (Acute) Eyelid pain (Acute) Chronic lower back pain (Acute) Asthma (Acute) Heart palpitations (Acute) GERD (gastroesophageal reflux disease) (Acute) Lumbar spine pain (Acute) Annual physical exam (Acute) Past Medical History Medical History Chronic lower back pain Gallstones Family History Family History Father No problems noted. Mother Asthma Diabetes Hypertension Hyperlipidemia Maternal Aunt Breast cancer Chronic mental illness Paternal Aunt Cancer Maternal Uncle Leukemia Family/Other Chronic mental illness Surgical History Surgical History Corneal transplant status History of bilateral cataract extraction History of eye surgery Social History Social History Household Members: Spouse and Children Housing: House Do you presently have visiting nurse or other home services: Yes ([employer]) Alcohol intake: never Patient Tobacco Use Status: Never used Tobacco e-Cigarette/Vaping Use: Never Used Second Hand Smoke Exposure: No Substance Use Type: Marijuana Advance Directives: No Advance Directives Information Provided: No service: No Current occupational status: disabled Meds Allergies Allergy/AdvReac Type Severity Reaction Status Date / Time Iodinated Contrast Media Allergy Unknown RASH/GENERALIZED Verified 09/17/20 10:35 [IV CONTRAST] REDNESS methylprednisolone Allergy Unknown ANAPHYLAXIS Verified 09/17/20 10:35 [From SOLU-MEDROL] Active Medications: Current Medications Generic Name Dose Route Start Last Admin Trade Name Freq PRN Reason Stop Dose Admin Lactated Ringer's 1,000 mls @ 100 mls/hr 09/23/20 01:45 Lr IVCONT .Q10H BORIS Exam Exam Date and Time: September 23, 2020 6099 Height,Weight and Vital Signs: Height 5 ft 8 in Weight 95.254 kg Last Vital Signs Temp 98.8 F 09/23/20 01:17 Pulse 122 H 09/23/20 01:32 Resp 18 09/23/20 01:17 BP 136/65 09/23/20 01:17 Pulse Ox 98 09/23/20 01:17 Pertinent Lab Results Pertinent Lab Results: Laboratory Tests 09/22/20 09/22/20 09/22/20 23:31 23:31 23:31 WBC 12.3 H RBC 2.87 L D Hgb 8.8 L D Hct 25.1 L D MCV 87.5 MCH 30.7 MCHC 35.1 RDW 11.6 Plt Count 211 MPV 9.8 Immature Gran % (Auto) 0.8 H Neut % (Auto) 81.1 H Lymph % (Auto) 8.3 L [place] % (Auto) 9.6 Eos % (Auto) 0.0 Baso % (Auto) 0.2 Lymph # (Auto) 1.0 L [place] # (Auto) 1.2 Eos # (Auto) 0.0 Baso # (Auto) 0.0 Abs Immat Gran (auto) 0.10 H Absolute Neuts (auto) 10.0 H Absolute Nucleated RBC 0.040 H Nucleated RBC % (auto) 0.3 H Sodium 137 Potassium 4.1 Chloride 103 Carbon Dioxide 25 Anion Gap 13 BUN 10 Creatinine 0.84 Estim Creat Clear Calc 145.2 Estimated GFR > 60 Random Glucose 103 Lactic Acid 0.9 Calcium 8.9 D Total Bilirubin 0.9 AST 14 D ALT 47 H Alkaline Phosphatase 54 Total Protein 6.4 L Albumin 4.0 Lipase 11 COVID-19 (JORDON) COVID-[facility] Com Blood Type Antibody Screen Crossmatch 09/23/20 09/23/20 00:46 01:09 WBC RBC Hgb Hct MCV MCH MCHC RDW Plt Count MPV Immature Gran % (Auto) Neut % (Auto) Lymph % (Auto) [place] % (Auto) Eos % (Auto) Baso % (Auto) Lymph # (Auto) [place] # (Auto) Eos # (Auto) Baso # (Auto) Abs Immat Gran (auto) Absolute Neuts (auto) Absolute Nucleated RBC Nucleated RBC % (auto) Sodium Potassium Chloride Carbon Dioxide Anion Gap BUN Creatinine Estim Creat Clear Calc Estimated GFR Random Glucose Lactic Acid Calcium Total Bilirubin AST ALT Alkaline Phosphatase Total Protein Albumin Lipase COVID-19 (JORDON) Negative COVID-19 Clin Com See Note Blood Type B Positive Antibody Screen NEGATIVE Crossmatch See Detail Airway Mallampati Class: II TM Dist: >3cm Neck ROM: Full
--- NOTE | 2020-09-23 04:02 | P.EN_ITS ---
Event Note Date of Service: 09/23/20 Event Note: Patient febrile and tachycardic, related to the acute blood loss r ather than sepsis. Blood cultures obtained in the ED. LA ordered now. Antibiotics started. Skin warm with brisk cap refill.
[2020-09-23] MEDS: fentaNYL citrate/PF 100 MCG/2 ML VIAL 50 MCG IVPUSH ×4 (04:07→04:45)
[2020-09-23 04:08] LABS: MANUAL DIFF FLAG NO
[2020-09-23 04:11] LABS: Basophils Percent Auto 0.2 % (0-2); Hematocrit 30.1 % (42-52); Hemoglobin 10.4 g/dl (14.0-18.0); Imm Gran Abs Auto 0.14 X10*3/uL (0.00-0.03); Imm Gran Pct Auto 1.1 % (0.0-0.4); Lymphocytes Absolute Auto 1.2 X10*3/uL (1.2-4.9); Lymphocytes Percent Auto 9.8 % (20-40); Mean Corpuscular HGB Conc 34.6 g/dl (31.0-36.0); Mean Corpuscular Volume 89.9 fL (80-98); Mean Platelet Volume 9.9 fL (9.4-12.4); Monocytes Absolute Auto 1.3 X10*3/uL (0.1-1.2); Monocytes Percent Auto 10.6 % (2-11); NRBC Pct Auto 0.2 /100WBC (0.0-0.2); Neutrophils Absolute Auto 9.6 X10*3/uL (2.0-8.3); Neutrophils Percent Auto 78.3 % (45-73); Platelet Count 186 X10*3/uL (160-400); Red Blood Count 3.35 X10*6/uL (4.60-5.80); Red Cell Distribution Width 12.7 % (11.0-16.0); White Blood Count 12.3 X10*3/uL (4.8-10.8)
[2020-09-23] MEDS: Piperacillin Sodium/Tazobactam 3.375 GM in 0.9 % Sodium Chloride 50 ML IV ×4 (04:15→23:36)
[2020-09-23 04:35] LABS: Lactic Acid 0.8 mmol/L (0.5-2.0)
[2020-09-23 04:39] LABS: Anion Gap 13 (12-20); Blood Urea Nitrogen 8 mg/dL (9-16); Calcium 7.9 mg/dL (8.4-10.2); Carbon Dioxide 22 mmol/L (22-29); Chloride 108 mmol/L (96-108); Creatinine Clr Calc Pharmacy 138.6; Estimated Glomerular Filt Rate > 60; Glucose Random 112 mg/dL (60-115); Potassium 3.7 mmol/L (3.3-5.1); Sodium 139 mmol/L (135-145)
[2020-09-23] MEDS: oxyCODONE HCl Immed Release 5 MG TABLET PO ×2 (05:02→11:05)
[2020-09-23] MEDS: Dextrose 5 % and Lactated Ring 1,000 ML 125 ML IVCONT ×3 (05:32→22:04)
[2020-09-23] MEDS: Morphine Sulfate 2 MG/ML CARTRIDGE 4 MG IVPUSH ×6 (05:37→23:48)
--- NOTE | 2020-09-23 06:26 | PC.NURSE ---
ADMIT FROM OR POST-EXPLORATORY LAPAROTOMY...AWAKE..ALERT..ORIENTED X3...SPEECH CLEAR...RR 24-28...SAO2 98% WITH O2 3 L/M..DENIES SOB...D5LR 125 CC/HR...HOLLAND YELLOW URINE...S.TACH HR 100'S..NO ECTOPY....ABDOMINAL INCISION WITH SMALL BLOODY STAINING LOWER EDGE/MARGIN...YOLANDA DRAIN WITH SEROSANGUINOUS DRAINAGE....DENIES NAUSEA...C/O CONTINUES 9-12/13 ABDOMINAL PAIN...RECEIVED OXYCODONE PO PRIOR TO TRANSPORT FROM PACU PER REPORT...MEDICATED PRN MORPHINE...CURRENTLY DOZING..NO DISTRESS
[2020-09-23 09:19] LABS: INTERNATIONAL NORM RATIO 1.3 (0.9-1.1); Prothrombin Time 15.2 SEC (9.9-13.0)
--- NOTE | 2020-09-23 12:17 | MHC.CM.PN ---
Met with pt to discuss d/c planning: Pt resides with spouse and children and has 19hrs of [employer] care per week. Spouse transports pt and he states he has no medical equipment at home. Pt states his spouse is his HCP - copy requested: D/C plan is for pt to return to home with existing supports: Spouse to transport
[2020-09-23 13:36] LABS: Hematocrit 32.8 % (42-52); Hemoglobin 11.2 g/dl (14.0-18.0); Mean Corpuscular HGB Conc 34.1 g/dl (31.0-36.0); Mean Corpuscular Hemoglobin 30.9 pg (27.0-33.0); Mean Corpuscular Volume 90.6 fL (80-98); Mean Platelet Volume 9.9 fL (9.4-12.4); Platelet Count 189 X10*3/uL (160-400); Red Blood Count 3.62 X10*6/uL (4.60-5.80); Red Cell Distribution Width 12.6 % (11.0-16.0); White Blood Count 10.3 X10*3/uL (4.8-10.8)
[2020-09-23] MEDS: Lactated Ringers 1,000 ML 100 ML IVCONT (23:38)
[2020-09-24] VITALS (9 sets, daily range): BP systolic 121–158; BP diastolic 60–73; PULSE 83–107; RESP 14–20; TEMP 35.8–37.2; O2SAT 95–100
[2020-09-24] MEDS: Albuterol Sulfate (0.083%) 2.5 MG/3 ML VIAL.NEB INHALE (01:45)
[2020-09-24] MEDS: Piperacillin Sodium/Tazobactam 3.375 GM in 0.9 % Sodium Chloride 50 ML IV ×4 (04:59→21:12)
[2020-09-24] MEDS: Morphine Sulfate 2 MG/ML CARTRIDGE 4 MG IVPUSH ×4 (04:59→18:42)
--- NOTE | 2020-09-24 09:06 | HO.POSTANES ---
Post Anesthesia Evaluation Post Anesthesia Evaluation Vital Signs: Vital Signs Temp Pulse Resp BP Pulse Ox 09/24/20 07:24 98.1 F 94 18 148/68 H 96 09/24/20 04:00 97.0 F 88 16 145/65 H 100 09/24/20 01:46 107 H 09/24/20 00:00 20 Anesthesia: General Mental Status: Awake Pain Control: Satisfactory Nausea/Vomiting: None Hydration: Adequate Anesthesia-Related Issues: No Anes. Related Issues
[2020-09-24] MEDS: Lactated Ringers 1,000 ML 100 ML IVCONT ×2 (09:49→21:12)
[2020-09-24] MEDS: ondansetron HCL 4 MG/2 ML VIAL IVPUSH (11:29)
--- NOTE | 2020-09-24 12:02 | PM.PNGS ---
Subjective Subjective Date of Service: 09/24/20 Interval history: Overall patient feels improved with decreased abdominal pain. He denies nausea or vomiting. Physical Exam Vital Signs: Vital Signs: Last Vital Signs Temp 96.5 F L 09/24/20 11:29 Pulse 85 09/24/20 11:29 Resp 20 09/24/20 11:29 BP 121/60 09/24/20 11:29 Pulse Ox 98 09/24/20 11:29 Oxygen Flow Rate 3 09/23/20 03:50 Body Mass Index 33.8 Const: General: no acute distress and well developed Nutritional Appearance: well nourished Orientation/consciousness: patient oriented x3 Resp: Effort & Inspection: normal respiratory effort GI: Other: Dressings changed, incision clean and intact. YOLANDA functioning with serous fluid noted Skin: General skin exam: no rashes or lesions noted Neuro: General: patient oriented x3 Extrem: Other: No edema Progress Note: A&P Assessment and plan (1) Hemoperitoneum: Status: Acute Assessment and Plan: Postop day 1 following exploratory laparotomy for hemoperitoneum. Patient remains hemodynamically stable with no evidence of ongoing bleeding. Will continue to monitor YOLANDA and hemoglobin levels. Recheck labs in a.m.. Will start clear liquids and advanced as tolerated. Guzman catheter removed this morning. Fall Risk Details Current Medications: Current Medications Generic Name Dose Route Start Last Admin Trade Name Freq PRN Reason Stop Dose Admin Hydromorphone HCl 0.5 mg 09/23/20 04:35 Hydromorphone Hcl 0.5 Mg/0.5 Ml Syringe IVPUSH Q5M PRN Pain, Severe (Pain Scale 7-10) Lactated Ringer's 1,000 mls @ 100 mls/hr 09/23/20 01:45 09/24/20 09:49 Lr IVCONT 100 mls/hr .Q10H BORIS Administration Piperacillin Sod/Tazobactam 50 mls @ 100 mls/hr 09/23/20 10:00 09/24/20 11:23 Sod 3.375 gm/ Sodium Chloride IV Infused Q6H BORIS Infusion Acetaminophen 1,000 mg in 100 mls @ 400 mls/hr 09/23/20 07:30 09/24/20 08:26 Ofirmev IV Infused Q6H BORIS Infusion Morphine Sulfate 4 mg 09/23/20 05:01 09/24/20 07:30 Morphine Sulfate 2 Mg/Ml Cartridge IVPUSH 4 mg Q2H PRN Administration Pain, Severe (Pain Scale 7-10) Ondansetron HCl 4 mg 09/23/20 05:01 Ondansetron Hcl 4 Mg/2 Ml Vial IVPUSH Q8H PRN Nausea and Vomiting Oxycodone HCl 5 mg 09/23/20 04:59 09/23/20 11:05 Oxycodone Hcl Immed Release 5 Mg Tablet PO 5 mg Q4H PRN Administration Pain, Moderate (Pain Scale 4-6 Pharmacy Consult 1 each 09/23/20 05:01 Consult Rx Perform Med Rec MISCELLANE ONCE PRN Consult order Zolpidem Tartrate 5 mg 09/23/20 05:01 Zolpidem Tartrate 5 Mg Tablet PO BEDTIME PRN Insomnia Time Spent With Patient Time: Total time spent is greater than 50% in coordination of care (as documented) at patient's floor/unit and/or counseling patient: Time with patient: 15 - 24 minutes Procedures Date of Service Date of Service: 09/24/20 Quality Stroke Does the patient have a stroke diagnosis?: No VTE Prior VTE?: No VTE Risk Level:: Surgical - low VTE Device Contraindication: N/A - Device Ordered VTE Drug Contraindication: Treatment Not Tolerated (Intra-abdominal bleeding)
[2020-09-25] MEDS: Morphine Sulfate 2 MG/ML CARTRIDGE 4 MG IVPUSH ×3 (02:05→20:00)
[2020-09-25] MEDS: Lactated Ringers 1,000 ML 100 ML IVCONT (05:11)
[2020-09-25] MEDS: Piperacillin Sodium/Tazobactam 3.375 GM in 0.9 % Sodium Chloride 50 ML IV (05:12)
[2020-09-25 05:13] VITALS: BP 132/50; PULSE 71; RESP 17; TEMP 36.4; O2SAT 98
[2020-09-25 06:00] VITALS: BMI 31.8
[2020-09-25 06:20] LABS: MANUAL DIFF FLAG NO
[2020-09-25 06:29] LABS: Basophils Percent Auto 0.2 % (0-2); Eosinophils Absolute Auto 0.2 X10*3/uL (0.0-0.4); Eosinophils Percent Auto 1.9 % (0-4); Hematocrit 31.2 % (42-52); Hemoglobin 10.8 g/dl (14.0-18.0); Imm Gran Abs Auto 0.06 X10*3/uL (0.00-0.03); Imm Gran Pct Auto 0.6 % (0.0-0.4); Lymphocytes Absolute Auto 1.4 X10*3/uL (1.2-4.9); Lymphocytes Percent Auto 14.2 % (20-40); Mean Corpuscular HGB Conc 34.6 g/dl (31.0-36.0); Mean Corpuscular Hemoglobin 30.5 pg (27.0-33.0); Mean Corpuscular Volume 88.1 fL (80-98); Mean Platelet Volume 9.2 fL (9.4-12.4); Monocytes Absolute Auto 1.4 X10*3/uL (0.1-1.2); Monocytes Percent Auto 14.3 % (2-11); Neutrophils Absolute Auto 6.9 X10*3/uL (2.0-8.3); Neutrophils Percent Auto 68.8 % (45-73); Platelet Count 236 X10*3/uL (160-400); Red Blood Count 3.54 X10*6/uL (4.60-5.80); Red Cell Distribution Width 12.6 % (11.0-16.0)
[2020-09-25 07:18] VITALS: BP 146/60; PULSE 90; RESP 20; TEMP 36.5; O2SAT 100
--- NOTE | 2020-09-25 08:36 | PM.PNGS ---
Subjective Subjective Date of Service: 09/25/20 Interval history: Overall patient is feeling improved. He denies nausea, reports some incisional pain. Tolerated liquids without increased pain. Reports getting dizzy and flush when getting out of bed yesterday Physical Exam Vital Signs: Vital Signs: Last Vital Signs Temp 97.7 F 09/25/20 07:18 Pulse 90 09/25/20 07:18 Resp 20 09/25/20 07:18 BP 146/60 H 09/25/20 07:18 Pulse Ox 100 09/25/20 07:18 Oxygen Flow Rate 3 09/23/20 03:50 Body Mass Index 31.8 Const: General: cooperative and no acute distress Nutritional Appearance: well nourished Orientation/consciousness: patient oriented x3 Resp: Effort & Inspection: normal respiratory effort, no cough and not tachypneic GI: Other: Incision in the right upper quadrant is clean and intact. YOLANDA drain with sanguinous discharge. Inspection: Yes normal to inspection Percussion: Yes normal to percussion Skin: General skin exam: no rashes or lesions noted Neuro: General: patient oriented x3 Extrem: General: Yes no clubbing, cyanosis or edema Progress Note: A&P Assessment and plan (1) Hemoperitoneum: Status: Acute Assessment and Plan: 30-year-old male patient with hemoperitoneum status post laparoscopic cholecystectomy requiring exploratory laparotomy and evacuation of hematoma. No active bleeding identified from liver bed. Patient remains hemodynamically stable with improving hemoglobin hematocrit. YOLANDA continues to produce a sanguinous output however therefore will be left in place. Patient is tolerating clear liquids therefore I will advance him to a regular diet today. He did have some dizziness when getting out of bed yesterday, will try again today. Fall Risk Details Current Medications: Current Medications Generic Name Dose Route Start Last Admin Trade Name Freq PRN Reason Stop Dose Admin Morphine Sulfate 4 mg 09/23/20 05:01 09/25/20 02:05 Morphine Sulfate 2 Mg/Ml Cartridge IVPUSH 4 mg Q2H PRN Administration Pain, Severe (Pain Scale 7-10) Ondansetron HCl 4 mg 09/23/20 05:01 Ondansetron Hcl 4 Mg/2 Ml Vial IVPUSH Q8H PRN Nausea and Vomiting Oxycodone HCl 5 mg 09/23/20 04:59 09/23/20 11:05 Oxycodone Hcl Immed Release 5 Mg Tablet PO 5 mg Q4H PRN Administration Pain, Moderate (Pain Scale 4-6 Pharmacy Consult 1 each 09/23/20 05:01 Consult Rx Perform Med Rec MISCELLANE ONCE PRN Consult order Zolpidem Tartrate 5 mg 09/23/20 05:01 Zolpidem Tartrate 5 Mg Tablet PO BEDTIME PRN Insomnia Time Spent With Patient Time: Total time spent is greater than 50% in coordination of care (as documented) at patient's floor/unit and/or counseling patient: Time with patient: 15 - 24 minutes Procedures Date of Service Date of Service: 09/25/20 Quality Stroke Does the patient have a stroke diagnosis?: No VTE Prior VTE?: No VTE Risk Level:: Surgical - low VTE Device Contraindication: N/A - Device Ordered VTE Drug Contraindication: Treatment Not Tolerated (Intra-abdominal bleeding)
--- NOTE | 2020-09-25 11:49 | PC.NURSE ---
pt was medicated with morphine for pain and states pain is a little better. He was woken from sleep for this assesment
[2020-09-25 12:21] VITALS: BP 153/64; PULSE 80; RESP 18; TEMP 36.4; O2SAT 96
[2020-09-25 15:38] VITALS: BP 130/75; PULSE 91; RESP 22; TEMP 36.9; O2SAT 97
[2020-09-25 23:00] VITALS: BP 144/69; PULSE 100; RESP 16; TEMP 37.1; O2SAT 97
[2020-09-26] MEDS: Morphine Sulfate 2 MG/ML CARTRIDGE 4 MG IVPUSH ×2 (01:29→19:38)
[2020-09-26 04:00] VITALS: BP 137/63; PULSE 80; RESP 16; TEMP 36.5; O2SAT 96
[2020-09-26 06:00] VITALS: BMI 31.7
[2020-09-26 06:48] LABS: MANUAL DIFF FLAG NO
[2020-09-26 06:58] LABS: Basophils Percent Auto 0.4 % (0-2); Eosinophils Absolute Auto 0.2 X10*3/uL (0.0-0.4); Eosinophils Percent Auto 2.6 % (0-4); Hematocrit 32.6 % (42-52); Hemoglobin 11.2 g/dl (14.0-18.0); Imm Gran Abs Auto 0.07 X10*3/uL (0.00-0.03); Imm Gran Pct Auto 0.8 % (0.0-0.4); Lymphocytes Absolute Auto 1.5 X10*3/uL (1.2-4.9); Mean Corpuscular HGB Conc 34.4 g/dl (31.0-36.0); Mean Corpuscular Hemoglobin 30.4 pg (27.0-33.0); Mean Corpuscular Volume 88.3 fL (80-98); Mean Platelet Volume 9.2 fL (9.4-12.4); Monocytes Absolute Auto 1.1 X10*3/uL (0.1-1.2); Monocytes Percent Auto 11.5 % (2-11); Neutrophils Absolute Auto 6.3 X10*3/uL (2.0-8.3); Neutrophils Percent Auto 68.7 % (45-73); Platelet Count 322 X10*3/uL (160-400); Red Blood Count 3.69 X10*6/uL (4.60-5.80); Red Cell Distribution Width 12.6 % (11.0-16.0); White Blood Count 9.2 X10*3/uL (4.8-10.8)
[2020-09-26 08:00] VITALS: BP 138/67; PULSE 97; RESP 18; TEMP 36.4; O2SAT 95
[2020-09-26 12:00] VITALS: BP 136/70; PULSE 82; RESP 17; TEMP 36.5; O2SAT 97
[2020-09-26 15:51] VITALS: BP 136/65; PULSE 86; RESP 16; TEMP 36.3; O2SAT 97
--- NOTE | 2020-09-26 16:05 | PM.PNGS ---
Progress Note: A&P Assessment and plan (1) Hemoperitoneum: Status: Acute Assessment and Plan: 30-year-old male patient with hemoperitoneum status post laparoscopic cholecystectomy requiring exploratory laparotomy and evacuation of hematoma. pt is doing very well, po pain meds and ambulating, tolerating some po diet but may be having some loose stools. will reeval tomorrow and could add some cholestryramine for short term he would like to go home tomorrow cont with nathan drain for now and consider dc home with it in place. Fall Risk Details Current Medications: Current Medications Generic Name Dose Route Start Last Admin Trade Name Freq PRN Reason Stop Dose Admin Albuterol Sulfate 1 puff 09/25/20 18:58 Albuterol Sulfate 90 Mcg 8 Gm Inhaler INHALE RQ4H PRN shortness of breath, wheezing Morphine Sulfate 4 mg 09/23/20 05:01 09/26/20 01:29 Morphine Sulfate 2 Mg/Ml Cartridge IVPUSH 4 mg Q2H PRN Administration Pain, Severe (Pain Scale 7-10) Ondansetron HCl 4 mg 09/23/20 05:01 Ondansetron Hcl 4 Mg/2 Ml Vial IVPUSH Q8H PRN Nausea and Vomiting Oxycodone HCl 5 mg 09/23/20 04:59 09/23/20 11:05 Oxycodone Hcl Immed Release 5 Mg Tablet PO 5 mg Q4H PRN Administration Pain, Moderate (Pain Scale 4-6 Pharmacy Consult 1 each 09/23/20 05:01 Consult Rx Perform Med Rec MISCELLANE ONCE PRN Consult order Zolpidem Tartrate 5 mg 09/23/20 05:01 Zolpidem Tartrate 5 Mg Tablet PO BEDTIME PRN Insomnia Time Spent With Patient Time: Total time spent is greater than 50% in coordination of care (as documented) at patient's floor/unit and/or counseling patient: Time with patient: 25 - 35 minutes Subjective Subjective Date of Service: 09/26/20 Interval history: pt feels well, little pain with eating and having some diarrhea he says after he eats. will follow these symptoms. Physical Exam Vital Signs: Vital Signs: Last Vital Signs Temp 97.4 F 09/26/20 15:51 Pulse 86 09/26/20 15:51 Resp 16 09/26/20 15:51 BP 136/65 09/26/20 15:51 Pulse Ox 97 09/26/20 15:51 Oxygen Flow Rate 3 09/23/20 03:50 Body Mass Index 31.7 GI: Other: soft nontender nondistended good bs the incision looks great the nathan has old blood draining - dark. Procedures Date of Service Date of Service: 09/26/20 Quality Stroke Does the patient have a stroke diagnosis?: No VTE Prior VTE?: No VTE Risk Level:: Surgical - low VTE Device Contraindication: N/A - Device Ordered VTE Drug Contraindication: Treatment Not Tolerated (Intra-abdominal bleeding)
[2020-09-26 19:24] VITALS: BP 148/71; PULSE 93; RESP 18; TEMP 36.5; O2SAT 97
[2020-09-27] VITALS: BP 131/62; PULSE 92; RESP 16; TEMP 36.6; O2SAT 97
[2020-09-27 04:00] VITALS: BP 138/63; PULSE 87; RESP 16; TEMP 36.4; O2SAT 96
[2020-09-27] MEDS: Morphine Sulfate 2 MG/ML CARTRIDGE 4 MG IVPUSH (04:31)
[2020-09-27 06:00] VITALS: BMI 31.8
[2020-09-27 08:00] VITALS: BP 133/66; PULSE 76; RESP 16; TEMP 36.2; O2SAT 97
[2020-09-27 11:50] VITALS: BP 152/68; PULSE 95; RESP 17; TEMP 36.1; O2SAT 98
--- NOTE | 2020-09-27 14:59 | PM.DS ---
DS: Providers Provider Date of Service: 09/27/20 Date of admission: 09/23/20 01:33 Primary care physician: Jean Bryant PA-C DS: Diagnosis Discharge Diagnosis (1) Hemoperitoneum: Status: Acute DS: Medications Discharge Medications Home Medications: Home Medications Medication Instructions Recorded Confirmed albuterol sulfate [ProAir HFA] 1 puff INHALATION QID PRN 09/23/20 09/23/20 Previous Rx's Medication Instructions Recorded omeprazole 40 mg capsule,delayed 40 mg PO DAILY #30 cap 06/17/20 release oxycodone 5 mg PO Q6H PRN #14 tab 09/21/20 nebulizer accessories #1 ea 09/22/20 oxycodone 5 mg PO Q6H PRN #6 tab 09/27/20 DS: Summary Hospital Course Hospital Course: The pt came in with acute cholecystitis and underwent uneventful lap jason and was dc home. he then returned to the hospital with abdo pain not feeling well, hct low and all indications of probable hemoperitneum. He underwent reexploration with evacuation of hematoma but no specific bleeding source identified. nathan drain left in place putting out old bloody drainage. Hct improved, he's clinically doing well with diet and pain. plan to dc with nathan in place and fu outpt this week in the office for drain removal. He agrees. Status at Discharge Cognitive/behavioral status at discharge: good Functional status at discharge: independent ambulation Overall status at discharge: patient is back to baseline Time Spent with Patient Time attestation: Total time spent providing and/or coordinating discharge services: Discharge coordination time: Less than 30 minutes Specific discharge activities: nathan drain care, low fat diet Quality: Stroke Does the patient have a stroke diagnosis?: No Reason for No Anti-thrombotic at DC: Not indicated Reason for No Anticoagulant at DC: Complication of medical care Reason for No Statin at DC: Drug treatment not indicated Physical Exam Vital Signs: Vital Signs: Last Vital Signs Temp 97.0 F 09/27/20 11:50 Pulse 95 09/27/20 11:50 Resp 17 09/27/20 11:50 BP 152/68 H 09/27/20 11:50 Pulse Ox 98 09/27/20 11:50 Oxygen Flow Rate 3 09/23/20 03:50 Body Mass Index 31.8 Const: General: cooperative, healthy appearing, no acute distress and well developed GI: Other: abdomen soft nontender good bwel sounds incision clean and intact well healing nathan - old bloody drainage DS: Data Data Completed and Pending Completed studies during hospitalization [Text1]: Procedures Resection of Gallbladder, Percutaneous Endoscopic Approach (09/19/20) Labs on day of discharge: Preliminary micro results at discharge 09/23/20 00:11 Blood Culture - Preliminary Blood - Venous No growth after 48 hours. 09/23/20 00:11 Blood Culture - Preliminary Blood - Venous No growth after 48 hours. Discharge Plan Discharge Anticipated Discharge Date/Time: 09/27/20 15:50 Patient Disposition: Home, Self-Care Discharge Diagnosis: hemoperitoneum Referrals: Jean Bryant PA-C [Primary Care Provider] - 1 Week Discharge Medications: New oxycodone 5 mg tablet 5 mg PO Q6H PRN (Reason: pain) Qty: 6 RF: 0 Continued omeprazole 40 mg capsule,delayed release(DR/EC) 40 mg PO DAILY Qty: 30 RF: 1 oxycodone 5 mg tablet 5 mg PO Q6H PRN (Reason: pain) Qty: 14 RF: 0 albuterol sulfate [ProAir HFA] 90 mcg/actuation HFA aerosol inhaler 1 puff inhalation QID PRN (Reason: wheezing) RF: 0 No Action (DME) Adult Aerosol Mask Misc See Rx Instructions .ROUTE .MEDSUPPLY Qty: 1 RF: 0 Discharge Orders: Discharge Order (Routine); Ordered 09/27/20 Ordered By: Lani Granados Diet: low fat, low cholesterol Activity on Discharge: As tolerated Stand Alone Forms: Patient Portal Discharge page Care Plan Goals: pt needs to be dc home with nathan drain in place and nathan drain care educated. record daily outputs on paper sponge bath until drain comes out Health Concerns: none Plan of Treatment: regular diet, ambulate, nathan drain care Assessment: pt is doing well
--- NOTE | 2020-09-27 15:31 | MHC.CM.PN ---
PT CLEARED TO DC HOME TODAY WITH NO SERVICES
[2020-09-27] MEDS: oxyCODONE HCl Immed Release 5 MG TABLET PO (16:13)
== END 2020-09-27 16:34 | disposition home or self-care (01) | DRG 793 ==
LOC: HO.ED 09-23 01:06 → HO.ICU 09-23 01:56 → HO.S3 09-23 17:31
PROVIDERS: Admitting Provider Surgery; Emergency Provider Student in an Organized Health Care Education/Training Program; PCP Physician Assistant; Visit Provider Surgery
PROC: 0WCG0ZZ Extirpation of Matter from Peritoneal Cavity, Open Approach (ICD-10-PCS; CPT 49000; principal; 2020-09-23 01:15)
DX: K91.840 Postprocedural hemorrhage of a digestive system organ or structure following a digestive system procedure (principal); Z20.822 Contact with and (suspected) exposure to COVID-19; D62 Acute posthemorrhagic anemia; Z79.899 Other long term (current) drug therapy
CPT/HCPCS: 36415; 74177; 80048; 80053; 83605; 83690; 85025; 85027; 85610; 86850; 86900; 86901; 86923; 87040; 87635; 94640; 99024; 99283; C1758; J0131; J1100; J1170; J2250; J2270; J2405; J2543; J3010; P9016; P9017; Q9967

== ENCOUNTER → 2020-09-29 09:53 | Outpatient (BNVA) | payer OTHER, SELFPAY | PROVIDERS: PCP Physician Assistant; Referring Provider Physician Assistant; Visit Provider Surgery | DX: Z48.815 Encounter for surgical aftercare following surgery on the digestive system (principal); K66.1 Hemoperitoneum; Z90.49 Acquired absence of other specified parts of digestive tract; Z87.19 Personal history of other diseases of the digestive system | CPT/HCPCS: 99212 ==

== ENCOUNTER 2020-10-18 05:32 | Emergency (ER) | payer OTHER, SELFPAY ==
--- NOTE | ~2020-10-18 | CT_ITS ---
EXAMINATION: CT ABDOMEN AND PELVIS WITHOUT CONTRAST CLINICAL INFORMATION: Right lower quadrant pain COMPARISON: 09/23/2020 TECHNIQUE: Multidetector volumetric imaging was performed from the superior aspect of the liver through the pubic symphysis. Sagittal and coronal reformatted images were obtained on the technologist's workstation. This CT examination was performed using dose optimization techniques as appropriate, variously including the following: *Automated exposure control *Adjustment of mA and/or kV according to patient size (this includes techniques or standardized protocols for targeted exams where dose is matched to indication/reason for exam; i.e. extremities or head) *Use of iterative reconstruction technique DLP: 641 mGy-cm FINDINGS: LUNG BASES: The visualized lung bases are unremarkable. LIVER, GALLBLADDER, AND BILIARY TREE: The liver is normal in size, shape, and attenuation. No biliary ductal dilatation. Scattered hypoattenuating lesions noted in the hepatic parenchyma which are too small to fully characterize, but without significant change from prior. Cholecystectomy. PANCREAS: Unremarkable. SPLEEN: Unremarkable. ADRENAL GLANDS: Unremarkable. KIDNEYS AND URETERS: The kidneys are normal in size, shape, and attenuation. No hydronephrosis, hydroureter, or calculi seen. No perinephric stranding. BLADDER: Unremarkable. GASTROINTESTINAL TRACT: The stomach is unremarkable. Normal caliber small bowel. There is no obstruction. No colonic wall thickening or focal inflammatory stranding. Normal appendix. There is stranding noted in the anterior pelvis. Small volume free fluid. No free air. ABDOMINAL WALL: Anterior scarring along the anterior abdominal wall. No significant hernia. LYMPH NODES: Normal. VASCULAR: Unremarkable. PELVIC VISCERA: The prostate and seminal vesicles are unremarkable. OSSEOUS STRUCTURES: No acute or suspicious osseous abnormality. CT/CT abdomen pelvis wo con IMPRESSION: Mild stranding of the fat in the anterior pelvis. Minimal free fluid. This could be associated with enteritis. Normal appendix.
[2020-10-18 05:34] VITALS: BP 117/62; BP 125/56; PULSE 88; PULSE 89; RESP 20; TEMP 37.1; O2SAT 100; BMI 30.9
[2020-10-18 05:36] VITALS: BP 125/56; PULSE 83; RESP 20; O2SAT 99
[2020-10-18 05:56] LABS: Basophils Percent Auto 0.3 % (0-2); Eosinophils Absolute Auto 0.1 X10*3/uL (0.0-0.4); Eosinophils Percent Auto 1.3 % (0-4); Hematocrit 39.2 % (42-52); Hemoglobin 12.9 g/dl (14.0-18.0); Imm Gran Abs Auto 0.05 X10*3/uL (0.00-0.03); Imm Gran Pct Auto 0.6 % (0.0-0.4); MANUAL DIFF FLAG NO; Mean Corpuscular HGB Conc 32.9 g/dl (31.0-36.0); Mean Corpuscular Hemoglobin 29.5 pg (27.0-33.0); Mean Corpuscular Volume 89.7 fL (80-98); Mean Platelet Volume 10.1 fL (9.4-12.4); Monocytes Absolute Auto 0.9 X10*3/uL (0.1-1.2); Monocytes Percent Auto 10.9 % (2-11); Neutrophils Absolute Auto 4.7 X10*3/uL (2.0-8.3); Neutrophils Percent Auto 60.9 % (45-73); Platelet Count 229 X10*3/uL (160-400); Red Blood Count 4.37 X10*6/uL (4.60-5.80); Red Cell Distribution Width 12.1 % (11.0-16.0); White Blood Count 7.8 X10*3/uL (4.8-10.8)
[2020-10-18] MEDS: Ketorolac Tromethamine 15 MG/ML VIAL IVPUSH (05:56)
[2020-10-18 06:21] LABS: Alanine Aminotransferase 32 U/L (0-40); Albumin Level 4.1 g/dL (3.5-5.0); Alkaline Phosphatase 52 U/L (39-117); Anion Gap 10 (12-20); Aspartate Amino Transferase 13 U/L (5-37); Bilirubin Total 0.6 mg/dL (0.0-1.0); Blood Urea Nitrogen 12 mg/dL (9-16); Calcium 9.2 mg/dL (8.4-10.2); Carbon Dioxide 28 mmol/L (22-29); Chloride 110 mmol/L (96-108); Creatinine Clr Calc Pharmacy 136.4; Estimated Glomerular Filt Rate > 60; Glucose Random 111 mg/dL (60-115); Potassium 4.2 mmol/L (3.3-5.1); Sodium 144 mmol/L (135-145); Total Protein 6.7 g/dL (6.5-8.0)
--- NOTE | 2020-10-18 06:33 | ED_ITS ---
HPI - Abdominal Pain General Chief Complaint: Abdominal Pain Stated Complaint: Abd pain Time Seen by Provider: 10/18/20 06:32 Source: patient Mode of arrival: EMS History of Present Illness HPI narrative: 30-year-old male with presentation for right lower quadrant pain, sharp in nature and radiating into the groin that began Monday and has worsened. This is not been associated with fever, chills, nausea, vomiting, diarrhea, urinary pain/burning/frequency. Related Data Home Medications Medication Instructions Recorded Confirmed albuterol sulfate 90 mcg/actuation 1 puff INHALATION QID PRN 09/23/20 09/23/20 aerosol inhaler (ProAir HFA) Previous Rx's Medication Instructions Recorded nebulizer accessories (Adult #1 ea 09/22/20 Aerosol Mask) oxycodone 5 mg tablet 5 mg PO Q6H PRN #6 tab 09/27/20 oxycodone 5 mg tablet 5 mg PO Q6H PRN #14 tab 10/05/20 omeprazole 40 mg capsule,delayed 40 mg PO DAILY #30 cap 10/08/20 release Allergies Allergy/AdvReac Type Severity Reaction Status Date / Time Iodinated Contrast Media Allergy Unknown RASH/GENERALIZED Verified 10/18/20 05:34 [IV CONTRAST] REDNESS methylprednisolone Allergy Unknown ANAPHYLAXIS Verified 10/18/20 05:34 [From SOLU-MEDROL] Review of Systems Review of Systems Pertinent positives and negatives as stated in HPI 10 point review of systems is otherwise negative. Physical Exam Vital Signs: Vital Signs: Last Vital Signs Temp 98.6 F 10/18/20 07:09 Pulse 80 10/18/20 07:09 Resp 16 10/18/20 07:32 BP 141/75 H 10/18/20 07:09 Pulse Ox 99 10/18/20 07:09 Body Mass Index 30.9 VITAL SIGNS: Reviewed. GENERAL: Well developed, well nourished, in no acute distress. HEAD: Normocephalic/atraumatic, EYES: PERRLA, EOMI, PATIENT IS LEGALLY BLIND OROPHARYNX: no oral lesions noted, posterior pharynx clear LUNGS: Normal breath sounds. No adventitious sounds or accessory muscle use. SpO2<99> CARDIOVASCULAR: Regular rate and rhythm without noted murmurs ABDOMEN: Soft, tenderness and right lower quadrant without rebound non-distended with bowel sounds. SKIN: Inspection of the skin reveals no rashes NEUROLOGIC: Alert and oriented x 4. Strength and sensation to light touch were grossly intact x 4. Course Course Course Narrative: 30-YEAR-OLD MALE WITH HISTORY AND CLINICAL PRESENTATION SUGGESTIVE OF APPENDICITIS, RENAL COLIC, UTI. Review of all investigations negative for acute findings other than some mild stranding suggestive of possible enteritis but appendix appears normal. Patient was provided with combination Tylenol/Toradol/IV fentanyl and on re-evaluation states that is pain has decreased to 3/10. MDM - Abdominal Pain Lab Data Result diagrams: 10/18/20 05:50 10/18/20 05:50 Labs: Lab Results 10/18/20 10/18/20 Range/Units 05:50 05:50 WBC 7.8 (4.8-10.8) X10*3/uL RBC 4.37 L (4.60-5.80) X10*6/uL Hgb 12.9 L (14.0-18.0) g/dl Hct 39.2 L D (42-52) % MCV 89.7 (80-98) fL MCH 29.5 (27.0-33.0) pg MCHC 32.9 (31.0-36.0) g/dl RDW 12.1 (11.0-16.0) % Plt Count 229 D (160-400) X10*3/uL MPV 10.1 (9.4-12.4) fL Immature Gran % (Auto) 0.6 H (0.0-0.4) % Neut % (Auto) 60.9 (45-73) % Lymph % (Auto) 26.0 (20-40) % Morgan % (Auto) 10.9 (2-11) % Eos % (Auto) 1.3 (0-4) % Baso % (Auto) 0.3 (0-2) % Lymph # (Auto) 2.0 (1.2-4.9) X10*3/uL Morgan # (Auto) 0.9 (0.1-1.2) X10*3/uL Eos # (Auto) 0.1 (0.0-0.4) X10*3/uL Baso # (Auto) 0.0 (0.0-0.2) X10*3/uL Abs Immat Gran (auto) 0.05 H (0.00-0.03) X10*3/uL Absolute Neuts (auto) 4.7 (2.0-8.3) X10*3/uL Absolute Nucleated RBC 0.000 (0.0-0.012) X10*3/uL Nucleated RBC % (auto) 0.0 (0.0-0.2) /100WBC Sodium 144 (135-145) mmol/L Potassium 4.2 (3.3-5.1) mmol/L Chloride 110 H (96-108) mmol/L Carbon Dioxide 28 (22-29) mmol/L Anion Gap 10 L (12-20) BUN 12 (9-16) mg/dL Creatinine 0.88 (0.5-1.4) mg/dL Estim Creat Clear Calc 136.4 Estimated GFR > 60 Random Glucose 111 (60-115) mg/dL Calcium 9.2 D (8.4-10.2) mg/dL Total Bilirubin 0.6 (0.0-1.0) mg/dL AST 13 (5-37) U/L ALT 32 (0-40) U/L Alkaline Phosphatase 52 (39-117) U/L Total Protein 6.7 (6.5-8.0) g/dL Albumin 4.1 (3.5-5.0) g/dL Discharge Plan Discharge Clinical Impression: Enteritis Patient Disposition: Home, Self-Care Additional Instructions: 1. Tylenol 1000 mg, orally, every 6 hours as needed for pain control. Do not exceed 4000 mg within 24 hours. 2. Ibuprofen 400 mg, orally with milk or food, every 6 hours as needed for pain control. Highly recommend combining the Tylenol with the ibuprofen for improved pain control. 3. Please follow-up with your primary care provider on Monday morning for re- evaluation and further outpatient management. Return to the ER for acute worsening of your symptoms. Prescriptions: No Action (DME) Adult Aerosol Mask Misc See Rx Instructions .ROUTE .MEDSUPPLY Qty: 1 RF: 0 oxycodone 5 mg tablet 5 mg PO Q6H PRN (Reason: pain) Qty: 14 RF: 0 omeprazole 40 mg capsule,delayed release(DR/EC) 40 mg PO DAILY Qty: 30 RF: 1 albuterol sulfate [ProAir HFA] 90 mcg/actuation HFA aerosol inhaler 1 puff inhalation QID PRN (Reason: wheezing) RF: 0 oxycodone 5 mg tablet 5 mg PO Q6H PRN (Reason: pain) Qty: 6 RF: 0 Referrals: Physician,Unknown [Primary Care Provider] - 2 days PMFSH Past Medical History Source: nursing notes reviewed Medical History Chronic lower back pain Gallstones Surgical History Corneal transplant status History of bilateral cataract extraction History of cholecystectomy History of excision of mass History of eye surgery Family History Family History Father No problems noted. 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
[2020-10-18 07:09] VITALS: BP 141/75; PULSE 80; RESP 16; TEMP 37; O2SAT 99
[2020-10-18 07:32] VITALS: RESP 16
[2020-10-18] MEDS: fentaNYL citrate/PF 100 MCG/2 ML VIAL 12.5 MCG IVPUSH (07:32)
[2020-10-18] MEDS: 0.9 % Sodium Chloride 1,000 ML 999 ML IV (07:32)
--- NOTE | 2020-10-18 07:39 | PC.NURSE ---
pt received in bed, resting. Pt is visually impaired. States pain in RLQ is 10/10, toradol given earlier had no effect. Spoke with Dr Araiza, meds and fluids ordered. Dispo pending urinalysis. Pt has not yet given a sample. IVF ordered to encourage urination. Will continue to monitor pain.
[2020-10-18 08:16] LABS: Glucose Urine UA NEG (NEG); Leukocyte Esterase Urine NEG (NEG); Nitrite Urine NEG (NEG); Specific Gravity - Urine >= 1.030 (1.005-1.025); Urine Blood NEG (NEG); Urine Ketones NEG (NEG); Urine Protein NEG (NEG-TRACE)
[2020-10-18 08:17] LABS: Appearance Urine CLEAR; Color Urine YELLOW
== END 2020-10-18 08:39 | disposition home or self-care (01) ==
PROVIDERS: Emergency Provider Student in an Organized Health Care Education/Training Program
DX: K52.9 Noninfective gastroenteritis and colitis, unspecified (principal); R10.31 Right lower quadrant pain; F12.90 Cannabis use, unspecified, uncomplicated; Z79.899 Other long term (current) drug therapy
CPT/HCPCS: 36415; 74176; 80053; 81003; 85025; 96361; 96374; 96375; 99284; J1885; J3010

== ENCOUNTER → 2020-10-30 | Outpatient (BNVA) | payer OTHER, SELFPAY | PROVIDERS: PCP Physician Assistant; Visit Provider Surgery | DX: K66.1 Hemoperitoneum (principal); K80.00 Calculus of gallbladder with acute cholecystitis without obstruction; Z88.8 Allergy status to other drugs, medicaments and biological substances; Z91.041 Radiographic dye allergy status; Z90.49 Acquired absence of other specified parts of digestive tract | CPT/HCPCS: 99212 ==

== ENCOUNTER 2021-03-31 22:33 | Emergency (ER) | payer OTHER, SELFPAY ==
--- NOTE | 2021-03-31 22:47 | PC.NURSE ---
waiting for car dryer
[2021-03-31 22:48] VITALS: BP 119/60; PULSE 87; RESP 16; TEMP 36.2; O2SAT 98; BMI 32.5
--- NOTE | 2021-03-31 22:55 | ECG_ITS ---
Test Reason : CHEST PAIN Blood Pressure : / mmHG Vent. Rate : 083 BPM Atrial Rate : 083 BPM P-R Int : 178 ms QRS Dur : 084 ms QT Int : 334 ms P-R-T Axes : 048 048 -21 degrees QTc Int : 392 ms Normal sinus rhythm T wave abnormality, consider inferior ischemia Abnormal ECG No previous ECGs available Referred By: Generic ED Physician Electronically Signed By:ANDRIY RIVER MD
[2021-03-31 23:11] LABS: Basophils Percent Auto 0.4 % (0-2); Eosinophils Absolute Auto 0.1 X10*3/uL (0.0-0.4); Eosinophils Percent Auto 0.8 % (0-4); Hematocrit 39.5 % (42.0-52.0); Imm Gran Abs Auto 0.03 X10*3/uL (0.00-0.03); Imm Gran Pct Auto 0.4 % (0.0-0.4); Lymphocytes Absolute Auto 1.9 X10*3/uL (1.2-4.9); Lymphocytes Percent Auto 24.6 % (20-40); MANUAL DIFF FLAG NO; Mean Corpuscular HGB Conc 35.4 g/dl (31.0-36.0); Mean Corpuscular Volume 84.8 fL (80.0-98.0); Mean Platelet Volume 9.8 fL (9.4-12.4); Monocytes Absolute Auto 1.1 X10*3/uL (0.1-1.2); Monocytes Percent Auto 14.9 % (2-11); Neutrophils Absolute Auto 4.4 x10*3/uL (2.0-8.3); Neutrophils Percent Auto 58.9 % (45-73); Platelet Count 224 X10*3/uL (160-400); Red Blood Count 4.66 X10*6/uL (4.60-5.80); Red Cell Distribution Width 11.4 % (11.0-16.0); White Blood Count 7.5 X10*3/uL (4.8-10.8)
--- NOTE | 2021-03-31 23:17 | ED_ITS ---
HPI - Chest Pain General Chief Complaint: Chest Pain Stated Complaint: chest pain, fall Time Seen by Provider: 03/31/21 23:13 Source: patient Mode of arrival: ambulatory Limitations: no limitations History of Present Illness HPI narrative: chest pain for one week, he has had it prior. Today he states he was dizzy and might have passed out. complaint: chest pain Onset (ago): week(s) Timing of current episode: episodic Pain location: substernal Severity: mild Quality: tightness Risk Factors Coronary artery disease risk factors: none Related Data Previous Rx's Medication Instructions Recorded nebulizer accessories (Adult #1 ea 09/22/20 Aerosol Mask) oxycodone 5 mg tablet 5 mg PO Q6H PRN #14 tab 01/15/21 ibuprofen 800 mg tablet 800 mg PO Q8H PRN 10 Days #30 tab 01/25/21 albuterol sulfate 90 mcg/actuation 1 puff INHALATION QID PRN 30 Days 02/22/21 aerosol inhaler (ProAir HFA) #8.5 g chlorhexidine gluconate 2 % 1 appl TOPICAL DAILY 15 Days #118 02/22/21 topical liquid ml doxycycline monohydrate 100 mg 100 mg PO BID 7 Days #14 cap 02/22/21 capsule omeprazole 40 mg capsule,delayed 40 mg PO DAILY #30 cap 02/22/21 release sertraline 25 mg tablet 25 mg PO DAILY 30 Days #30 tab 02/22/21 chlorhexidine gluconate 4 % 1 appl TOPICAL DAILY PRN 30 Days 02/24/21 topical liquid #118 ml clotrimazole 1 % topical cream 1 appl TOPICAL BID 15 Days #30 g 02/25/21 (Antifungal (clotrimazole)) Allergies Allergy/AdvReac Type Severity Reaction Status Date / Time Iodinated Allergy Unknown RASH/GENERALIZED Verified 02/22/21 11:11 Contrast Media [IV CONTRAST] REDNESS methylprednisolon Allergy Unknown ANAPHYLAXIS Verified 02/22/21 11:11 e [From SOLU-MEDROL] Review of Systems Verdana 4l Constitutional: Verdana 4d Constitutional: Verdana 4d Verdana 4d Reports no additional constitutional complaints Verdana 4l Eyes: Verdana 4d Verdana 4d Eyes: Verdana 4d Reports no additional eye complaints Verdana 4l ENT: Verdana 4d Denies dizziness Verdana 4l Cardiovascular: Verdana 4d Cardiovascular: Verdana 4d Verdana 4d Reports no additional cardiovascular complaints Verdana 4l Respiratory: Verdana 4d Verdana 4d Respiratory: Verdana 4d Reports as per HPI Verdana 4l Gastrointestinal: Verdana 4d Gastrointestinal: Verdana 4d Verdana 4d Reports no additional gastrointestinal complaints Verdana 4l Musculoskeletal: Verdana 4d Musculoskeletal: Verdana 4d Verdana 4d Reports no additional musculoskeletal complaints Verdana 4l Integumentary/Breasts: Verdana 4d Skin/Breast: Verdana 4d Verdana 4d Denies rash Verdana 4l Neurologic: Verdana 4d Reports system reviewed and no additional complaints, except as documented, Denies dizziness and Denies Sensory deficit (Neuro) Verdana 4l Psychiatric: Verdana 4d Verdana 4d Psychiatric: Verdana 4d Denies anxiety PMFSH Past Medical History Medical History Chronic lower back pain Gallstones Surgical History Corneal transplant status History of bilateral cataract extraction History of cholecystectomy History of excision of mass History of eye surgery Family History Family History Father No problems noted. 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) Alcohol intake: current Alcohol intake frequency: holidays/special occasions only Patient Tobacco Use Status: Never used Tobacco e-Cigarette/Vaping Use: Never Used Second Hand Smoke Exposure: No Substance Use Type: Marijuana Advance Directives: No Advance Directives Information Provided: Yes service: No Current occupational status: disabled Physical Exam Verdana 4l Vital Signs: Verdana 4d Verdana 4d Vital Signs: Verdana 4d Verdana 4Bd Last Vital Signs Verdana 4d Curtain Cutter New 4d Curtain Cutter New 4d Temp 97.1 F 03/31/21 23:23 Curtain Cutter New 4d Pulse 88 03/31/21 23:53 Curtain Cutter New 4d Resp 14 03/31/21 23:23 BP 122/68 03/31/21 23:53 Pulse Ox 99 03/31/21 23:23 BMI result Body Mass Index 32.5 Const: Other: anxious Nutritional Appearance: average body habitus Orientation/consciousness: oriented to person and patient oriented x3 Limitations: no limitations HENMT: Head: Yes normal to inspection Ears: external ears normal General nose exam: Normal external nose present Mouth: Normal oral and palatal mucosa present and oropharynx normal Throat: Yes posterior oropharynx normal Eyes: General: appearance normal, both eyes and all related structures Neck: Other: supple Neck: Yes normal visual inspection Chest: Chest palpation & inspection: normal inspection of the chest Resp: Auscultation: clear to auscultation bilaterally Cardio: Jugular venous distension: no JVD Rate: regular rate Rhythm: regular rhythm Heart sounds: S1 normal heart sound present and S2 normal heart sound present GI: Inspection: Yes normal to inspection Palpation (GI): Soft to palpation, nontender and No hepatosplenomegaly present Auscultation: normal bowel sounds : General: Yes no CVA tenderness Back/Spine/Pelvis: Back: no CVA tenderness Skin: General skin exam: no rashes or lesions noted Neuro: General: oriented to person and patient oriented x3 Cranial nerves: Yes CN's II-XII intact bilaterally Motor exam (neuro): 5/5 motor strength present throughout Sensory Exam: No Sensory deficit (Neuro) Extrem: General: Yes normal to inspection Psych: Appearance: grossly normal Course Reevaluation(s) Reevaluation #1: repositioning of EKG leads now with normal sinus rhythm. Despite pain all week troponin negative. Patient with increased anxiety and stress. Will dc home Time: 00:34 MDM - Chest Pain Lab Data Result diagrams: 03/31/21 23:05 03/31/21 23:05 Labs: Lab Results 03/31/21 03/31/21 03/31/21 Range/Units 23:05 23:05 23:05 WBC 7.5 (4.8-10.8) X10*3/uL RBC 4.66 (4.60-5.80) X10*6/uL Hgb 14.0 (14.0-18.0) g/dl Hct 39.5 L (42.0-52.0) % MCV 84.8 (80.0-98.0) fL MCH 30.0 (27.0-33.0) pg MCHC 35.4 (31.0-36.0) g/dl RDW 11.4 (11.0-16.0) % Plt Count 224 (160-400) X10*3/uL MPV 9.8 (9.4-12.4) fL Immature Gran % (Auto) 0.4 (0.0-0.4) % Neut % (Auto) 58.9 (45-73) % Lymph % (Auto) 24.6 (20-40) % [place] % (Auto) 14.9 H (2-11) % Eos % (Auto) 0.8 (0-4) % Baso % (Auto) 0.4 (0-2) % Lymph # (Auto) 1.9 (1.2-4.9) X10*3/uL [place] # (Auto) 1.1 (0.1-1.2) X10*3/uL Eos # (Auto) 0.1 (0.0-0.4) X10*3/uL Baso # (Auto) 0.0 (0.0-0.2) X10*3/uL Abs Immat Gran (auto) 0.03 (0.00-0.03) X10*3/uL Absolute Neuts (auto) 4.4 (2.0-8.3) x10*3/uL Absolute Nucleated RBC 0.000 (0.0-0.012) X10*3/uL Nucleated RBC % (auto) 0.0 (0.0-0.2) /100WBC Sodium 138 (135-145) mmol/L Potassium 3.9 (3.3-5.1) mmol/L Chloride 107 (96-108) mmol/L Carbon Dioxide 26 (22-29) mmol/L Anion Gap 9 L (12-20) BUN 22 H (9-16) mg/dL Creatinine 0.93 (0.5-1.4) mg/dL Estim Creat Clear Calc 132.3 Estimated GFR > 60 Random Glucose 115 (60-115) mg/dL Calcium 9.5 (8.4-10.2) mg/dL Troponin I High Sens (<3.5-35.0) ng/L COVID-19 (JORDON) Negative (Negative) COVID-19 Clin Com See Note 03/31/21 Range/Units 23:33 WBC (4.8-10.8) X10*3/uL RBC (4.60-5.80) X10*6/uL Hgb (14.0-18.0) g/dl Hct (42.0-52.0) % MCV (80.0-98.0) fL MCH (27.0-33.0) pg MCHC (31.0-36.0) g/dl RDW (11.0-16.0) % Plt Count (160-400) X10*3/uL MPV (9.4-12.4) fL Immature Gran % (Auto) (0.0-0.4) % Neut % (Auto) (45-73) % Lymph % (Auto) (20-40) % [place] % (Auto) (2-11) % Eos % (Auto) (0-4) % Baso % (Auto) (0-2) % Lymph # (Auto) (1.2-4.9) X10*3/uL [place] # (Auto) (0.1-1.2) X10*3/uL Eos # (Auto) (0.0-0.4) X10*3/uL Baso # (Auto) (0.0-0.2) X10*3/uL Abs Immat Gran (auto) (0.00-0.03) X10*3/uL Absolute Neuts (auto) (2.0-8.3) x10*3/uL Absolute Nucleated RBC (0.0-0.012) X10*3/uL Nucleated RBC % (auto) (0.0-0.2) /100WBC Sodium (135-145) mmol/L Potassium (3.3-5.1) mmol/L Chloride (96-108) mmol/L Carbon Dioxide (22-29) mmol/L Anion Gap (12-20) BUN (9-16) mg/dL Creatinine (0.5-1.4) mg/dL Estim Creat Clear Calc Estimated GFR Random Glucose (60-115) mg/dL Calcium (8.4-10.2) mg/dL Troponin I High Sens < 3.5 (<3.5-35.0) ng/L COVID-19 (JORDON) (Negative) COVID-19 Clin Com ECG Data ECG #1: Attestation: I personally reviewed and interpreted this ECG as follows: Interpretation: I suspect the limb leads were in the wrong place as his inferior leads looked abnormal ECG #2: Attestation: I personally reviewed and interpreted this ECG as follows: Interpretation: normal sinus rate of 80, no st or twave changes Discharge Plan Discharge Clinical Impression: Chest pain, Anxiety Patient Disposition: Home, Self-Care Instructions: Anxiety (ED), Noncardiac Chest Pain (ED) Prescriptions: No Action (DME) Adult Aerosol Mask Misc See Rx Instructions .ROUTE .MEDSUPPLY Qty: 1 0RF Rx Instructions: As directed oxycodone 5 mg tablet 5 mg PO Q6H PRN (Reason: pain) Qty: 14 0RF ibuprofen 800 mg tablet 800 mg PO Q8H PRN (Reason: pain) 10 Days Qty: 30 2RF chlorhexidine gluconate 4 % liquid 1 appl topical DAILY PRN (Reason: skin cleansing) 30 Days Qty: 118 0RF clotrimazole [Antifungal (clotrimazole)] 1 % cream 1 appl topical BID 15 Days Qty: 30 0RF doxycycline monohydrate 100 mg capsule 100 mg PO BID 7 Days Qty: 14 0RF chlorhexidine gluconate 2 % liquid 1 appl topical DAILY 15 Days Qty: 118 0RF omeprazole 40 mg capsule,delayed release(DR/EC) 40 mg PO DAILY Qty: 30 1RF albuterol sulfate [ProAir HFA] 90 mcg/actuation HFA aerosol inhaler 1 puff inhalation QID PRN (Reason: wheezing) 30 Days Qty: 8.5 3RF sertraline 25 mg tablet 25 mg PO DAILY 30 Days Qty: 30 3RF Referrals: Physician,Unknown J [Primary Care Provider] - 1 week Interventions: ED Discharge Assessment Last Done: 04/01/21 00:27
--- NOTE | 2021-03-31 23:22 | ECG_ITS ---
Test Reason : CP Blood Pressure : / mmHG Vent. Rate : 080 BPM Atrial Rate : 080 BPM P-R Int : 160 ms QRS Dur : 080 ms QT Int : 328 ms P-R-T Axes : 048 040 003 degrees QTc Int : 378 ms Normal sinus rhythm Normal ECG When compared with ECG of 31-MAR-2021 22:55, No significant change was found Referred By: Herbert Leon Electronically Signed By:ANDRIY RIVER MD
[2021-03-31 23:23] VITALS: BP 129/62; PULSE 85; RESP 14; TEMP 36.2; O2SAT 99
[2021-03-31 23:27] LABS: COVID-19 Test Negative (Negative); IDNOW Serial# 9DD0AD1C
[2021-03-31 23:29] LABS: Anion Gap 9 (12-20); Blood Urea Nitrogen 22 mg/dL (9-16); Calcium 9.5 mg/dL (8.4-10.2); Carbon Dioxide 26 mmol/L (22-29); Chloride 107 mmol/L (96-108); Creatinine Clr Calc Pharmacy 132.3; Estimated Glomerular Filt Rate > 60; Glucose Random 115 mg/dL (60-115); Potassium 3.9 mmol/L (3.3-5.1); Sodium 138 mmol/L (135-145)
[2021-03-31 23:50] VITALS: BP 121/59; PULSE 75
[2021-03-31 23:52] VITALS: BP 110/69; PULSE 90
[2021-03-31 23:53] VITALS: BP 122/68; PULSE 88
[2021-04-01 00:15] LABS: Troponin-I High Sensitivity < 3.5 ng/L (<3.5-35.0)
== END 2021-04-01 00:47 | disposition home or self-care (01) ==
PROVIDERS: Emergency Provider Emergency Medicine
DX: R07.9 Chest pain, unspecified (principal); F41.9 Anxiety disorder, unspecified; Z20.822 Contact with and (suspected) exposure to COVID-19
CPT/HCPCS: 36415; 80048; 84484; 85025; 87635; 93005; 99284

== ENCOUNTER 2021-04-02 09:08 | Outpatient (REF) | payer OTHER, SELFPAY ==
[2021-04-02 10:17] LABS: Hematocrit 41.8 % (42.0-52.0); Hemoglobin 14.8 g/dl (14.0-18.0); Mean Corpuscular HGB Conc 35.4 g/dl (31.0-36.0); Mean Corpuscular Hemoglobin 30.4 pg (27.0-33.0); Mean Corpuscular Volume 85.8 fL (80.0-98.0); Mean Platelet Volume 10.2 fL (9.4-12.4); Platelet Count 239 X10*3/uL (160-400); Red Blood Count 4.87 X10*6/uL (4.60-5.80); Red Cell Distribution Width 11.6 % (11.0-16.0); White Blood Count 6.2 X10*3/uL (4.8-10.8)
[2021-04-02 10:26] LABS: Estimated Average Glucose 91 mg/dL; Hemoglobin A1c % 4.8 %
[2021-04-02 10:53] LABS: Alanine Aminotransferase 17 U/L (0-40); Albumin Level 4.7 g/dL (3.5-5.0); Alkaline Phosphatase 56 U/L (39-117); Anion Gap 14 (12-20); Aspartate Amino Transferase 11 U/L (5-37); Bilirubin Total 0.4 mg/dL (0.0-1.0); Blood Urea Nitrogen 20 mg/dL (9-16); Calcium 10.1 mg/dL (8.4-10.2); Carbon Dioxide 26 mmol/L (22-29); Chloride 108 mmol/L (96-108); Cholesterol 131 mg/dL; Estimated Glomerular Filt Rate > 60; Glucose Fasting 96 mg/dL (60-99); HDL Cholesterol 21 mg/dL; LDL Cholesterol Calculated 92 mg/dl; Potassium 4.5 mmol/L (3.3-5.1); Sodium 143 mmol/L (135-145); Total Protein 7.5 g/dL (6.5-8.0); Triglycerides 94 mg/dL
[2021-04-02 11:00] LABS: TSH reflex Free T4 1.83 uIU/mL (0.32-4.0)
== END 2021-04-02 09:09 | disposition home or self-care (01) ==
LOC: HO.LAB 09:08
PROVIDERS: PCP Physician Assistant; Visit Provider Physician Assistant
DX: Z13.220 Encounter for screening for lipoid disorders (principal); Z13.29 Encounter for screening for other suspected endocrine disorder
CPT/HCPCS: 36415; 80053; 80061; 83036; 84443; 85027

== ENCOUNTER 2021-04-29 11:05 | Emergency (ER) | payer OTHER, SELFPAY ==
[2021-04-29 11:23] VITALS: BP 138/73; PULSE 101; RESP 19; TEMP 35.8; O2SAT 99; BMI 32.6
--- NOTE | 2021-04-29 11:29 | PC.NURSE ---
LUNG JERONIMO UPPER LOBES - CTA, JERONIMO LOWER LOBES DIMINISHED.
[2021-04-29 13:02] LABS: MANUAL DIFF FLAG NO
[2021-04-29 13:03] LABS: Basophils Percent Auto 0.1 % (0-2); Eosinophils Absolute Auto 0.1 X10*3/uL (0.0-0.4); Eosinophils Percent Auto 0.3 % (0-4); Hematocrit 49.6 % (42.0-52.0); Hemoglobin 17.3 g/dl (14.0-18.0); Imm Gran Abs Auto 0.07 X10*3/uL (0.00-0.03); Imm Gran Pct Auto 0.5 % (0.0-0.4); Lymphocytes Absolute Auto 0.5 X10*3/uL (1.2-4.9); Lymphocytes Percent Auto 3.1 % (20-40); Mean Corpuscular HGB Conc 34.9 g/dl (31.0-36.0); Mean Corpuscular Hemoglobin 30.2 pg (27.0-33.0); Mean Corpuscular Volume 86.7 fL (80.0-98.0); Mean Platelet Volume 9.6 fL (9.4-12.4); Monocytes Percent Auto 6.7 % (2-11); Neutrophils Absolute Auto 13.1 x10*3/uL (2.0-8.3); Neutrophils Percent Auto 89.3 % (45-73); Platelet Count 244 X10*3/uL (160-400); Red Blood Count 5.72 X10*6/uL (4.60-5.80); Red Cell Distribution Width 11.9 % (11.0-16.0); White Blood Count 14.7 X10*3/uL (4.8-10.8)
[2021-04-29 13:05] LABS: Appearance Urine HAZY; Color Urine YELLOW; Glucose Urine UA NEG (NEG); Leukocyte Esterase Urine NEG (NEG); Nitrite Urine NEG (NEG); Specific Gravity - Urine >= 1.030 (1.005-1.025); UACC Culture Trigger NO; Urine Blood 1+ (NEG); Urine Ketones 40 MG/DL (NEG); Urine Protein TRACE MG/DL (NEG-TRACE)
[2021-04-29 13:17] LABS: Alanine Aminotransferase 27 U/L (0-40); Alkaline Phosphatase 75 U/L (39-117); Anion Gap 15 (12-20); Aspartate Amino Transferase 16 U/L (5-37); Bilirubin Total 1.3 mg/dL (0.0-1.0); Blood Urea Nitrogen 18 mg/dL (9-16); Calcium 10.1 mg/dL (8.4-10.2); Carbon Dioxide 26 mmol/L (22-29); Chloride 104 mmol/L (96-108); Creatinine Clr Calc Pharmacy 112.1; Estimated Glomerular Filt Rate > 60; Glucose Random 112 mg/dL (60-115); Mucus Urine 2+ /LPF; Potassium 4.6 mmol/L (3.3-5.1); Sodium 140 mmol/L (135-145); Squamous Epithelial Cell Urine 1+ /LPF; Total Protein 8.5 g/dL (6.5-8.0); WBC Urine 0 /HPF (0-4)
== END 2021-04-29 17:00 | disposition left against medical advice (07) ==
PROVIDERS: Emergency Provider Emergency Medicine; PCP Physician Assistant
DX: R11.2 Nausea with vomiting, unspecified (principal); R19.7 Diarrhea, unspecified; J45.909 Unspecified asthma, uncomplicated
CPT/HCPCS: 36415; 80053; 81001; 85025; 99283

== ENCOUNTER 2021-10-07 23:59 | Emergency (ER) | payer OTHER, SELFPAY ==
[2021-10-08 01:06] VITALS: BP 125/78; PULSE 99; RESP 16; TEMP 37.1; BMI 34.2
--- NOTE | 2021-10-08 03:56 | ED.SKABFB ---
HPI - Skin/Abscess/Foreign Bdy General Chief complaint: Skin/Abscess/Foreign Body Stated complaint: abscess Time Seen by Provider: 10/08/21 03:44 History of Present Illness HPI narrative: Patient is a 31-year-old male presents today with having an abscess to the the left gluteal area. There is pain in the area. The symptom has been ongoing for 3-4 days. There is no fever no chills. No systemic complaints. Patient has a history of asthma. History of glaucoma and is blind. Not on blood thinners. No IV drug use. Related Data Previous Rx's Medication Instructions Recorded nebulizer accessories (Adult #1 ea 09/22/20 Aerosol Mask) oxycodone 5 mg tablet 5 mg PO Q6H PRN pain #14 tabs 01/15/21 chlorhexidine gluconate 2 % 1 appl topical DAILY 15 days #118 02/22/21 topical liquid mL doxycycline monohydrate 100 mg 100 mg PO BID 7 days #14 caps 02/22/21 capsule sertraline 25 mg tablet 25 mg PO DAILY 30 days #30 tabs 02/22/21 chlorhexidine gluconate 4 % 1 appl topical DAILY PRN skin 02/24/21 topical liquid cleansing 30 days #118 mL clotrimazole 1 % topical cream 1 appl topical BID 15 days #30 02/25/21 (Antifungal (clotrimazole)) grams albuterol sulfate 2.5 mg/3 mL 2.5 mg (3 mL) inhalation Q6H PRN 04/29/21 (0.083 %) solution for nebulization shortness of breath or wheezing 30 days #180 mL albuterol sulfate 90 mcg/actuation 1 puff inhalation QID PRN wheezing 05/20/21 aerosol inhaler (ProAir HFA) 30 days #8.5 grams omeprazole 40 mg capsule,delayed 40 mg PO DAILY #30 caps 06/25/21 release ibuprofen 800 mg tablet 800 mg PO Q8H PRN pain 10 days #30 07/22/21 tabs cephalexin 500 mg capsule 500 mg PO TID 7 days #21 caps 10/08/21 Allergies Allergy/AdvReac Type Severity Reaction Status Date / Time Iodinated Contrast Media Allergy Unknown RASH/GENERALIZED Verified 02/22/21 11:11 [IV CONTRAST] REDNESS methylprednisolone Allergy Unknown ANAPHYLAXIS Verified 02/22/21 11:11 [From SOLU-MEDROL] Review of Systems Review of Systems: Positive pain in the gluteal area for the last 2 days. No nausea no vomiting no diarrhea Yes all other systems are reviewed and are negative [facility] Past Medical History Attestation statement: The following information was validated with the patient. Medical History Chronic lower back pain Gallstones Surgical History Corneal transplant status History of bilateral cataract extraction History of cholecystectomy History of excision of mass History of eye surgery Family History Family History Father No problems noted. 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) Alcohol intake: current Alcohol intake frequency: holidays/special occasions only Patient Tobacco Use Status: Never used Tobacco e-Cigarette/Vaping Use: Never Used Second Hand Smoke Exposure: No Substance Use Type: Marijuana Advance Directives: No Advance Directives Information Provided: Yes service: No Current occupational status: disabled Physical Exam Vital Signs: Vital Signs: Last Vital Signs Temp 98.7 F 10/08/21 01:06 Pulse 76 10/08/21 06:49 Resp 16 10/08/21 06:49 BP 125/78 10/08/21 01:06 Pulse Ox 99 10/08/21 06:49 O2 Del Method 10/08/21 06:49 BMI result Body Mass Index 34.2 Appearance: Alert. Oriented X3. No acute distress. Eyes: Pupils equal, round and reactive to light. ENT: Pharynx normal. Neck: Normal inspection. Neck supple. No lymph nodes noted. No crepitus CVS: Normal heart rate and rhythm. Pulses normal. Normal S1 and S2 Respiratory: No respiratory distress. Breath sounds normal. No Wheezing. No rales Abdomen: Soft and nontender. No rigidity. No distention. good BS x4 Skin: Large abscess noted to the left gluteal area approximately 4 cm x 4 cm in size. Fluctuant. Warm to touch Extremities: No lower extremity edema. Neurovascular intact to all extremities. No Lacerations. No Rash Neuro: Oriented X 3. No motor deficit. No sensory deficit. Moving all extermities. No slurred speech MDM - Skin/Abscess/Foreign Bdy MDM Narrative Medical decision making narrative: Patient's abscess was I indeed. Loculations broken. Large amount of pus was removed. Given there is still some redness surrounding the abscess will start patient on antibiotics. Follow-up on an outpatient basis. Packing removal 2 days. Patient in stable condition Procedures Abscess I/D Site: jodi-rectal Side (if applicable): left Local Anesthetic: lidocaine 1% Amount of anesthesia used (mL): 5 Technique: incised with blade Amount of fluid expressed (mL): 10 Sent for culture/gram staining?: Yes Irrigation: Yes Packing used?: iodoform Discharge Plan Discharge Clinical Impression: Abscess Patient Disposition: Home, Self-Care Instructions: Abscess Follow-up (ED), Abscess Incision and Drainage (DC) Additional Instructions: Come back to the emergency department in 2 days for packing removal. Prescriptions: New cephalexin 500 mg capsule 500 mg PO TID 7 Days Qty: 21 0RF No Action (DME) Adult Aerosol Mask Misc See Rx Instructions .ROUTE .MEDSUPPLY Qty: 1 0RF Rx Instructions: As directed oxycodone 5 mg tablet 5 mg PO Q6H PRN (Reason: pain) Qty: 14 0RF chlorhexidine gluconate 4 % liquid 1 appl topical DAILY PRN (Reason: skin cleansing) 30 Days Qty: 118 0RF clotrimazole [Antifungal (clotrimazole)] 1 % cream 1 appl topical BID 15 Days Qty: 30 0RF albuterol sulfate 2.5 mg /3 mL (0.083 %) solution for nebulization 2.5 mg inhalation Q6H PRN (Reason: shortness of breath or wheezing) 30 Days Qty: 180 0RF albuterol sulfate [ProAir HFA] 90 mcg/actuation HFA aerosol inhaler 1 puff inhalation QID PRN (Reason: wheezing) 30 Days Qty: 8.5 3RF omeprazole 40 mg capsule,delayed release(DR/EC) 40 mg PO DAILY Qty: 30 2RF ibuprofen 800 mg tablet 800 mg PO Q8H PRN (Reason: pain) 10 Days Qty: 30 2RF doxycycline monohydrate 100 mg capsule 100 mg PO BID 7 Days Qty: 14 0RF chlorhexidine gluconate 2 % liquid 1 appl topical DAILY 15 Days Qty: 118 0RF sertraline 25 mg tablet 25 mg PO DAILY 30 Days Qty: 30 3RF Referrals: Physician,Unknown J [Primary Care Provider] - (Please come back to the emergency department in 2 days for packing removal.)
--- NOTE | 2021-10-08 04:22 | PC.NURSE ---
pt uncomfortable, lying on rt side, abcess to rt inner buttock.
[2021-10-08 06:49] VITALS: PULSE 76; RESP 16; O2SAT 99
[2021-10-08] MEDS: Lidocaine HCl 1 % MPF 2 ML VIAL 10 ML INFILTRATI (06:57)
== END 2021-10-08 07:30 | disposition home or self-care (01) ==
PROVIDERS: Emergency Provider Emergency Medicine Emergency Medical Services
DX: K61.2 Anorectal abscess (principal); Z79.899 Other long term (current) drug therapy
CPT/HCPCS: 45005; 46050; 87071; 87205; 99284

== ENCOUNTER → 2022-06-03 11:30 | Outpatient (BNVA) | payer OTHER, SELFPAY | PROVIDERS: PCP Physician Assistant; Referring Provider Physician Assistant; Visit Provider Surgery | DX: L05.91 Pilonidal cyst without abscess (principal) | CPT/HCPCS: 99212 ==

== ENCOUNTER → 2022-06-14 11:32 | Outpatient (BNVA) | payer OTHER, SELFPAY | PROVIDERS: PCP Physician Assistant; Visit Provider Surgery | DX: L05.91 Pilonidal cyst without abscess (principal) | CPT/HCPCS: 99212 ==

== ENCOUNTER 2022-06-15 17:51 | Emergency (ER) | payer OTHER, SELFPAY ==
[2022-06-15 17:57] VITALS: BP 135/74; PULSE 94; O2SAT 100
--- NOTE | 2022-06-15 17:59 | ED.SKABFB ---
HPI - Skin/Abscess/Foreign Bdy General Chief complaint: Skin/Abscess/Foreign Body <Cher Wiseman NP - Last Filed: 06/15/22 18:08> Stated complaint: controlled bleeding <Cher Wiseman NP - Last Filed: 06/15/22 18:08> Time Seen by Provider: 06/15/22 22:52 <Cher Wiseman NP - Last Filed: 06/15/22 18:08> Source: EMS <Cher Wiseman NP - Last Filed: 06/15/22 18:08> patient <Leo Rangel MD - Last Filed: 06/16/22 06:57> Mode of arrival: EMS <Leo Rangel MD - Last Filed: 06/16/22 06:57> Limitations: no limitations <Leo Rangel MD - Last Filed: 06/16/22 06:57> History of Present Illness HPI narrative: Patient's history of recurrent pilonidal abscesses seen the surgeon yesterday for I&D as outpatient but patient comes back as notice increased pain and swelling and had a temperature of 101 degrees last night. Patient was given antibiotic but somehowpatient lost his medications <Leo Rangel MD - Last Filed: 06/16/22 06:57> Related Data Home medications: Previous Rx's Medication Instructions Recorded nebulizer accessories (Adult #1 ea 09/22/20 Aerosol Mask) sertraline 25 mg tablet 25 mg PO DAILY 30 days #30 tabs 02/22/21 clotrimazole 1 % topical cream 1 appl topical BID 15 days #30 02/25/21 (Antifungal (clotrimazole)) grams albuterol sulfate 2.5 mg/3 mL 2.5 mg (3 mL) inhalation Q6H PRN 04/29/21 (0.083 %) solution for nebulization shortness of breath or wheezing 30 days #180 mL omeprazole 40 mg capsule,delayed 40 mg PO DAILY #30 caps 01/20/22 release albuterol sulfate 90 mcg/actuation 1 puff inhalation QID PRN wheezing 03/31/22 aerosol inhaler (ProAir HFA) 30 days #8.5 grams ibuprofen 800 mg tablet 800 mg PO Q8H PRN pain 10 days #30 03/10/23 tabs sulfamethoxazole 800 1 tab PO Q12H #8 tabs 06/14/22 mg-trimethoprim 160 mg tablet (Bactrim DS) cephalexin 500 mg capsule 500 mg PO QID 10 days #40 caps 06/15/22 doxycycline hyclate 100 mg tablet 100 mg PO BID #20 tabs 06/15/22 oxycodone 5 mg tablet 5 mg PO Q6H PRN pain #20 tabs 06/15/22 <Cher Wiseman NP - Last Filed: 06/15/22 18:08> Allergies/Adverse reactions: Allergies Allergy/AdvReac Type Severity Reaction Status Date / Time Iodinated Contrast Media Allergy Unknown RASH/GENERALIZED Verified 06/15/22 18:02 [IV CONTRAST] REDNESS methylprednisolone Allergy Unknown ANAPHYLAXIS Verified 06/15/22 18:02 [From SOLU-MEDROL] <Cher Wiseman NP - Last Filed: 06/15/22 18:08> Review of Systems Review of Systems: Yes all other systems are reviewed and are negative <Leo Rangel MD - Last Filed: 06/16/22 06:57> [facility] Past Medical History Medical History: Medical History Chronic lower back pain Gallstones <Cher Wiseman NP - Last Filed: 06/15/22 18:08> Surgical History: Surgical History Corneal transplant status History of bilateral cataract extraction History of cholecystectomy History of excision of mass History of eye surgery <Cher Wiseman NP - Last Filed: 06/15/22 18:08> Family History Family History: Family History Father No problems noted. Mother Asthma Diabetes Hypertension Hyperlipidemia Maternal Aunt Breast cancer Chronic mental illness Paternal Aunt Cancer Maternal Uncle Leukemia Family/Other Chronic mental illness <Cher Wiseman NP - Last Filed: 06/15/22 18:08> Social History Social History: Social History Household Members: Spouse and Children Housing: House Do you presently have visiting nurse or other home services: Yes ([employer]) Alcohol intake: current Alcohol intake frequency: holidays/special occasions only Patient Tobacco Use Status: Never used Tobacco e-Cigarette/Vaping Use: Never Used Second Hand Smoke Exposure: No Substance Use Type: Marijuana Advance Directives: No Advance Directives Information Provided: Yes service: No Current occupational status: disabled <Cher Wiseman NP - Last Filed: 06/15/22 18:08> Physical Exam Vital Signs: Vital Signs: Last Vital Signs Temp 96.8 F 06/15/22 18:02 Pulse 99 06/15/22 18:02 Resp 18 06/15/22 18:02 BP 138/68 06/15/22 18:02 Pulse Ox 97 06/15/22 18:02 BMI result Body Mass Index 33.3 <Cher Wiseman NP - Last Filed: 06/15/22 18:08> Vital Signs: Last Vital Signs Temp 96.8 F 06/15/22 18:02 Pulse 99 06/15/22 18:02 Resp 18 06/15/22 18:02 BP 138/68 06/15/22 18:02 Pulse Ox 97 06/15/22 18:02 BMI result Body Mass Index 33.3 <Leo Rangel MD - Last Filed: 06/16/22 06:57> Appearance: Alert. Oriented X3. No acute distress. Legally blind CVS: Normal heart rate and rhythm. Pulses normal. Respiratory: No respiratory distress. Equal air entry bilateral, Abdomen: Soft and nontender. Bowel sounds are present, no mass palpable, no CVA tenderness rectum: Fluctuant pilonidal abscess Skin: Skin warm and dry. Normal skin color. Normal skin turgor. Extremities: No lower extremity edema. No calf tenderness Neuro: Oriented X 3. <Leo Rangel MD - Last Filed: 06/16/22 06:57> Course Course Course Narrative: This is rapid medical exam. Deferred additional HPI, ROS, PE to primary provider. 32 yo male with history of asthma presents to the ER with complaints of bleeding from gluteal abscess. Of note patient was seen yesterday at general surgeon office. Started on antibiotic yesterday and took 2 doses but then his daughter threw out the bottle. Has had fever up to 101F. Per patient the general surgeon has plans to take him to the OR under [place]. Patient here d/t increase pain, swelling and feels there is increase in drainage from the wound. +pilonidal abscess felt in triage w/ fluctuance, likely needs I&D. VSS <Cher Wiseman NP - Last Filed: 06/15/22 18:08> Medications Administered Discontinued Medications Generic Name Dose Route Start Last Admin Trade Name Freq PRN Reason Stop Dose Admin Cephalexin HCl 500 mg 06/15/22 23:28 06/15/22 23:44 Cephalexin 500 Mg Capsule PO 06/15/22 23:29 500 mg ONCE ONE Administration Doxycycline Monohydrate 100 mg 06/15/22 23:28 06/15/22 23:44 Doxycycline Monohydrate 100 Mg Capsule PO 06/15/22 23:29 100 mg ONCE ONE Administration Oxycodone HCl 10 mg 06/15/22 23:29 06/15/22 23:44 Oxycodone Hcl Immed Release 5 Mg Tablet PO 06/15/22 23:30 10 mg ONCE ONE Administration <Cher Wiseman NP - Last Filed: 06/15/22 18:08> Medications Administered Discontinued Medications Generic Name Dose Route Start Last Admin Trade Name Freq PRN Reason Stop Dose Admin Cephalexin HCl 500 mg 06/15/22 23:28 06/15/22 23:44 Cephalexin 500 Mg Capsule PO 06/15/22 23:29 500 mg ONCE ONE Administration Doxycycline Monohydrate 100 mg 06/15/22 23:28 06/15/22 23:44 Doxycycline Monohydrate 100 Mg Capsule PO 06/15/22 23:29 100 mg ONCE ONE Administration Oxycodone HCl 10 mg 06/15/22 23:29 06/15/22 23:44 Oxycodone Hcl Immed Release 5 Mg Tablet PO 06/15/22 23:30 10 mg ONCE ONE Administration <Leo Rangel MD - Last Filed: 06/16/22 06:57> Procedures Abscess I/D Site: back (Pilonidal abscess) <Leo Rangel MD - Last Filed: 06/16/22 06:57> Local Anesthetic: lidocaine 1% <Leo Rangel MD - Last Filed: 06/16/22 06:57> Amount of anesthesia used (mL): 15 <Leo Rangel MD - Last Filed: 06/16/22 06:57> Technique: incised with blade <Leo Rangel MD - Last Filed: 06/16/22 06:57> Amount of fluid expressed (mL): 20 <Leo Rangel MD - Last Filed: 06/16/22 06:57> Sent for culture/gram staining?: No <Leo Rangel MD - Last Filed: 06/16/22 06:57> Irrigation: No <Leo Rangel MD - Last Filed: 06/16/22 06:57> Packing used?: iodoform <Leo Rangel MD - Last Filed: 06/16/22 06:57> Discharge Plan Discharge Clinical Impression: Pilonidal abscess <Cher Wiseman NP - Last Filed: 06/15/22 18:08> Patient Disposition: Home, Self-Care <Cher Wiseman NP - Last Filed: 06/15/22 18:08> Instructions: Pilonidal Cyst (ED) <Cher Wiseman NP - Last Filed: 06/15/22 18:08> Additional Instructions: Local care as advised Packing removal in 2 days Follow-up with your surgeon Antibiotics as prescribed <Cher Wiseman NP - Last Filed: 06/15/22 18:08> Prescriptions: New cephalexin 500 mg capsule 500 mg PO QID 10 Days Qty: 40 0RF doxycycline hyclate 100 mg tablet 100 mg PO BID Qty: 20 0RF oxycodone 5 mg tablet 5 mg PO Q6H PRN (Reason: pain) Qty: 20 0RF Rx Instructions: Partial Fill upon patient request. No Action (DME) Adult Aerosol Mask Misc See Rx Instructions .ROUTE .MEDSUPPLY Qty: 1 0RF Rx Instructions: As directed clotrimazole [Antifungal (clotrimazole)] 1 % cream 1 appl topical BID 15 Days Qty: 30 0RF albuterol sulfate 2.5 mg /3 mL (0.083 %) solution for nebulization 2.5 mg inhalation Q6H PRN (Reason: shortness of breath or wheezing) 30 Days Qty: 180 0RF omeprazole 40 mg capsule,delayed release(DR/EC) 40 mg PO DAILY Qty: 30 3RF albuterol sulfate [ProAir HFA] 90 mcg/actuation HFA aerosol inhaler 1 puff inhalation QID PRN (Reason: wheezing) 30 Days Qty: 8.5 3RF ibuprofen 800 mg tablet 800 mg PO Q8H PRN (Reason: pain) 10 Days Qty: 30 2RF sertraline 25 mg tablet 25 mg PO DAILY 30 Days Qty: 30 3RF sulfamethoxazole-trimethoprim [Bactrim DS] 800-160 mg tablet 1 tab PO Q12H Qty: 8 0RF Rx Instructions: to replace lost tablets <Cher Wiseman NP - Last Filed: 06/15/22 18:08> Interventions: ED Discharge Assessment Last Done: 06/15/22 23:48 <Cher Wiseman NP - Last Filed: 06/15/22 18:08> Discharge Date/Time: 06/15/22 23:49 <Cher Wiseman NP - Last Filed: 06/15/22 18:08>
[2022-06-15 18:02] VITALS: BP 138/68; PULSE 99; RESP 18; TEMP 36; O2SAT 97; BMI 33.3
--- NOTE | 2022-06-15 22:54 | PC.NURSE ---
pt reports having an abscess on his buttocks for quite a while , followed up with surgeon yesterday who stated that they will schedule him to have it drained under anesthesia. Pt was in too much pain today and did not have his antibiotics so the surgeon recommended he come to the ED
[2022-06-15] MEDS: oxyCODONE HCl Immed Release 5 MG TABLET 10 MG PO (23:44)
[2022-06-15] MEDS: Doxycycline Monohydrate 100 MG CAPSULE PO (23:44)
[2022-06-15] MEDS: cephALEXin 500 MG CAPSULE PO (23:44)
== END 2022-06-15 23:49 | disposition home or self-care (01) ==
PROVIDERS: Emergency Provider Internal Medicine
DX: L05.01 Pilonidal cyst with abscess (principal); J45.909 Unspecified asthma, uncomplicated
CPT/HCPCS: 10080; 99283

== ENCOUNTER 2023-04-22 23:02 | Emergency (ER) | payer OTHER, SELFPAY ==
--- NOTE | ~2023-04-22 | XR_ITS ---
EXAMINATION: XR CHEST CLINICAL INFORMATION: Fever, cough COMPARISON: Chest x-ray October 25, 2017 TECHNIQUE: Frontal portable view of the chest was obtained. 2359 hours FINDINGS: No significant abnormality is noted involving the heart, lungs, mediastinum, bony thorax or soft tissues. XR/XR chest 1V IMPRESSION: Unremarkable examination.
[2023-04-22 23:17] VITALS: BP 105/74; PULSE 116; RESP 16; TEMP 39.2; O2SAT 99; BMI 31.1
[2023-04-22] MEDS: Acetaminophen 325 MG TABLET 650 MG PO (23:21)
[2023-04-22 23:55] LABS: Alanine Aminotransferase 48 U/L (0-40); Albumin Level 3.9 g/dL (3.5-5.0); Alkaline Phosphatase 79 U/L (39-117); Anion Gap 13 (12-20); Aspartate Amino Transferase 27 U/L (5-37); Bilirubin Total 0.7 mg/dL (0.0-1.0); Blood Urea Nitrogen 12 mg/dL (9-16); Calcium 8.9 mg/dL (8.4-10.2); Carbon Dioxide 24 mmol/L (22-29); Chloride 107 mmol/L (96-108); Creatinine Clr Calc Pharmacy 131.2; Estimated Glomerular Filt Rate > 60; Glucose Random 122 mg/dL (60-115); Potassium 3.5 mmol/L (3.3-5.1); Sodium 140 mmol/L (135-145)
--- NOTE | 2023-04-22 23:55 | ED_ITS ---
HPI - Fever General Chief Complaint: Fever Stated Complaint: fever,asthma,lower back cyst Time Seen by Provider: 04/22/23 23:30 Source: patient Mode of arrival: ambulatory Limitations: no limitations History of Present Illness HPI Narrative: Patient comes in the emergency room complaining of fever and chills. Patient states that a few days ago, his children tested positive for RSV. He has been having symptoms for about 6 days. When patient was seen in triage, it was noted that the patient mentioned that he has a pilonidal cyst that has been draining blood and pus. However, patient states that he did not mean to say that it has an active issue. Patient states that he has history of pilonidal cyst, and he has schedule surgery at [facility] to remove the cyst if he develops in the future. Patient adamant that it has not an active issue at this time, has not seen blood or pus lately. Related Data Previous Rx's Medication Instructions Recorded nebulizer accessories (Adult #1 ea 09/22/20 Aerosol Mask) sertraline 25 mg tablet 25 mg PO DAILY 30 days #30 tabs 02/22/21 clotrimazole 1 % topical cream 1 appl topical BID 15 days #30 02/25/21 (Antifungal (clotrimazole)) grams albuterol sulfate 2.5 mg/3 mL 2.5 mg (3 mL) inhalation Q6H PRN 04/29/21 (0.083 %) solution for nebulization shortness of breath or wheezing 30 days #180 mL albuterol sulfate 90 mcg/actuation 1 puff inhalation QID PRN wheezing 03/31/22 aerosol inhaler (ProAir HFA) 30 days #8.5 grams ibuprofen 800 mg tablet 800 mg PO Q8H PRN pain 10 days #30 05/13/22 tabs sulfamethoxazole 800 1 tab PO Q12H #8 tabs 06/14/22 mg-trimethoprim 160 mg tablet (Bactrim DS) cephalexin 500 mg capsule 500 mg PO QID 10 days #40 caps 06/15/22 doxycycline hyclate 100 mg tablet 100 mg PO BID #20 tabs 06/15/22 oxycodone 5 mg tablet 5 mg PO Q6H PRN pain #20 tabs 06/15/22 omeprazole 40 mg capsule,delayed 40 mg PO DAILY #30 caps 11/08/22 release acetaminophen 500 mg tablet 500 mg PO QID PRN fever or pain 04/23/23 #14 tabs ibuprofen 600 mg tablet 600 mg PO TID PRN fever or pain 04/23/23 #14 tabs Allergies Allergy/AdvReac Type Severity Reaction Status Date / Time Iodinated Contrast Media Allergy Unknown RASH/GENERALIZED Verified 06/15/22 18:02 [IV CONTRAST] REDNESS methylprednisolone Allergy Unknown ANAPHYLAXIS Verified 06/15/22 18:02 [From SOLU-MEDROL] Review of Systems 2 Review of Systems: Constitutional : No Weight loss, No Fever, No Chills, No Night Sweats, No Fatigue, No Malaise ENT/Mouth : No Hearing loss, No Ear Pain, No Nasal Congestion, No Sinus Pain, No Hoarseness, No sore throat, No Rhinorrhea, No Swallowing Difficulty Eyes: No Eye Pain, No Swelling, No Redness, No Foreign Body, No Discharge, No Vision Changes Cardiovascular : No Chest Pain, No SOB, No Dyspnea on Exertion, No Orthopnea, No Edema, No Palpitations Respiratory : Complaining of cough, wheezing Gastrointestinal : No Nausea, No Vomiting, No Diarrhea, No Constipation, No abdominal Pain, No Hematochezia, No Melena Genitourinary : no irregular bleeding, No Dysuria, No Urinary Frequency, No Hematuria, No Urinary Incontinence, No Urgency, No Flank Pain, No Urinary Flow Changes, No Hesitancy Musculoskeletal : No joint pain, No Myalgias, No Joint Swelling Skin : No Skin Lesions, No rash Neuro : No Weakness, No Numbness, No Paresthesias, No Loss of Consciousness, No Dizziness, No Headache Psych : No Anxiety/Panic, No Depression, No SI/HI/AH/VH, No Social Issues, Heme/Lymph: No Bruising, No Bleeding,No Lymphadenopathy Endocrine : No Polyuria, No Polydipsia, No Temperature Intolerance [facility] Past Medical History Medical History GERD (gastroesophageal reflux disease) Asthma Anxiety Gallstones Chronic lower back pain Surgical History History of excision of pilonidal cyst History of cholecystectomy History of excision of mass Corneal transplant status History of bilateral cataract extraction History of eye surgery Family History Family History Father No problems noted. Mother Asthma Diabetes Hypertension Hyperlipidemia Maternal Aunt Breast cancer Chronic mental illness Paternal Aunt Cancer Maternal Uncle Leukemia Family/Other Chronic mental illness Social History Social History Household Members: Spouse and Children Housing: House Do you presently have visiting nurse or other home services: Yes ([employer]) Alcohol intake: current Alcohol intake frequency: holidays/special occasions only Patient Tobacco Use Status: Never used Tobacco Smoked in Last 30 Days: No e-Cigarette/Vaping Use: Never Used Second Hand Smoke Exposure: No Use of substances other than those prescribed or required for medical reasons: No Substance Use Type: Marijuana Advance Directives: No Advance Directives Information Provided: No service: No Current occupational status: disabled Physical Exam 2 Vital Signs: Vital Signs: Last Vital Signs Temp 101.5 F H 04/23/23 00:58 Pulse 122 H 04/23/23 00:58 Resp 15 04/23/23 00:58 BP 131/50 L 04/23/23 00:58 Pulse Ox 99 04/23/23 00:58 O2 Del Method Aerosol Mask 04/23/23 00:58 BMI result Body Mass Index 31.1 Const: Other: Appearance: Alert. Oriented X3. No acute distress. Eyes: Pupils equal, round and reactive to light. ENT: Pharynx normal. Neck: Normal inspection. Neck supple. No lymph nodes noted. No crepitus CVS: Normal heart rate and rhythm. Pulses normal. Normal S1 and S2 Respiratory: No respiratory distress. Wheezing Abdomen: Soft and nontender. No rigidity. No distention. Skin: Skin warm and dry. Normal skin color. Normal skin turgor. No pus or blood drainage or pilonidal cyst present. Patient has no pain to palpation above the gluteus in the coccyx area, lateral to the gluteus, perineum or area jodi rectal area, no drainage present Extremities: No lower extremity edema. No Lacerations. No Rash Neuro: Oriented X 3. No motor deficit. No sensory deficit. Moving all extremities. No slurred speech. CN 2 through 12 grossly intact Psych: calm, cooperative, normal affect Course Course Course Narrative: -patient is a bit wheezing, receiving IV fluids, magnesium and nebulization treatment. Patient states that he has an anaphylactic reaction to Solu-Medrol -patient given p.o. Tylenol and Motrin Medications Administered Generic Name Dose Route Start Last Admin Trade Name [place] PRN Reason Stop Dose Admin Magnesium Sulfate 2 gm in 50 mls @ 25 mls/hr 04/22/23 23:57 04/23/23 00:04 Magnesium Sulfate/H2o IV 04/23/23 01:56 25 mls/hr ONCE ONE Administration Discontinued Medications Generic Name Dose Route Start Last Admin Trade Name Melania PRN Reason Stop Dose Admin Acetaminophen 650 mg 04/22/23 23:12 04/22/23 23:21 Acetaminophen 325 Mg Tablet PO 04/22/23 23:13 650 mg ONCE ONE Administration Albuterol Sulfate 2.5 mg/ 5 mg 04/23/23 00:19 04/23/23 00:25 Albuterol Sulfate 2.5 mg INHALE 04/23/23 00:20 5 mg ONCE ONE Administration Sodium Chloride 1,000 mls @ 999 mls/hr 04/22/23 23:56 04/23/23 00:04 Ns IVCONT 04/23/23 00:56 999 mls/hr .Q1H1M ONE Administration Ibuprofen 600 mg 04/22/23 23:56 04/23/23 00:03 Ibuprofen 600 Mg Tablet PO 04/22/23 23:57 600 mg ONCE ONE Administration Medical Decision Making Medical Decision Making [facility] Narrative: Patient received a nebulization treatment. Patient states that he is breathing better. -my interpretation of labs: White blood cell count normal. Chemistry does not show any acute abnormality, LFTs within normal limits. Serology negative for influenza RSV and covid are negative. Lactic acid 2.1 likely secondary to albuterol nebulization treatment -my interpretation of chest x-ray: No infiltrates -after the nebulization treatments, patient states that he feels much better. Patient tachycardic due to fever and nebulization treatment, sepsis not suspected. White blood cell count normal, lactic acid pending Differential Diagnosis Differential Diagnoses: The differential diagnosis associated with the presentation includes (COVID, RSV, influenza) Lab Data [facility] Lab Attestation statement: I reviewed the patient's lab results. 04/22/23 23:30 04/22/23 23:30 Labs: Lab Results 04/22/23 Range/Units 23:30 WBC 7.1 (4.8-10.8) X10*3/uL RBC 4.72 (4.60-5.80) X10*6/uL Hgb 13.8 L D (14.0-18.0) g/dl Hct 39.0 L D (42.0-52.0) % MCV 82.6 (80.0-98.0) fL MCH 29.2 (27.0-33.0) pg MCHC 35.4 (31.0-36.0) g/dl RDW 11.9 (11.0-16.0) % Plt Count 198 (160-400) X10*3/uL MPV 9.9 (9.4-12.4) fL Immature Gran % (Auto) Cancelled Neut % (Auto) Cancelled Lymph % (Auto) Cancelled [place] % (Auto) Cancelled Eos % (Auto) Cancelled Baso % (Auto) Cancelled Lymph # (Auto) Cancelled [place] # (Auto) Cancelled Eos # (Auto) Cancelled Baso # (Auto) Cancelled Abs Immat Gran (auto) Cancelled Absolute Neuts (auto) Cancelled Absolute Nucleated RBC 0.000 (0.0-0.012) X10*3/uL Nucleated RBC % (auto) 0.0 (0.0-0.2) /100WBC Neutrophils % (Manual) 24 L (45-73) % Band Neutrophils % 22 H (3-5) % Lymphocytes % (Manual) 34 (20-40) % Atypical Lymphs % (Man) 5 (0-6) % Monocytes % (Manual) 8 (2-11) % Eosinophils % (Manual) 2 (0-4) % Basophils % (Manual) 3 H (0-2) % Metamyelocytes % 1 % Myelocytes % 1 % Abs Neuts (Manual) 3.3 (2.0-8.3) X10*3/uL Lymphocytes # (Manual) 2.4 (1.2-4.9) X10*3/uL Atyp Lymphs # (Manual) 0.4 x10*3/uL Monocytes # (Manual) 0.6 (0.1-1.2) X10*3/uL Eosinophils # (Manual) 0.1 (0.0-0.4) X10*3/uL Basophils # (Manual) 0.2 (0.0-0.2) X10*3/uL Metamyelocytes # 0.1 X10*3/uL Myelocytes # 0.1 X10*/uL Platelet Estimate NORMAL (NORMAL) Plt Morphology Comment NORMAL RBC Morphology NORMAL Smear Tech's Comments MANUAL DIFF Sodium 140 (135-145) mmol/L Potassium 3.5 (3.3-5.1) mmol/L Chloride 107 (96-108) mmol/L Carbon Dioxide 24 (22-29) mmol/L Anion Gap 13 (12-20) BUN 12 (9-16) mg/dL Creatinine 0.93 (0.5-1.4) mg/dL Estim Creat Clear Calc 131.2 Estimated GFR > 60 Random Glucose 122 H (60-115) mg/dL Calcium 8.9 D (8.4-10.2) mg/dL Total Bilirubin 0.7 (0.0-1.0) mg/dL AST 27 (5-37) U/L ALT 48 H (0-40) U/L Alkaline Phosphatase 79 (39-117) U/L Total Protein 7.0 (6.5-8.0) g/dL Albumin 3.9 (3.5-5.0) g/dL Influenza Type A (PCR) NEGATIVE (Negative) Influenza Type B (PCR) NEGATIVE (Negative) RSV RNA Qual (PCR) NEGATIVE (Negative) SARS-CoV-2 RNA (RT-PCR) NEGATIVE (Negative) Independent Interpretation I performed an independent interpretation of an: Plain X-Ray Radiology Impression Discussion of test interpretation with radiology: I have reviewed the radiologist's reading. Radiologist Impression: FINDINGS: No significant abnormality is noted involving the heart, lungs, mediastinum, bony thorax or soft tissues. XR/XR chest 1V IMPRESSION: Unremarkable examination. Critical Care Time Critical Care Time Critical Care Time: Yes Total Critical Care Time: 45 Attestation: I have personally provided critical care time. Time includes review of lab data, radiology results, discussion with consultants, and monitoring for potential decompensation. Intervention performed as documented. Discharge Plan Discharge Clinical Impression: Viral upper respiratory infection Patient Disposition: Home, Self-Care Instructions: Asthma (ED), Viral Syndrome (ED) Additional Instructions: Please follow-up with your primary care physician tomorrow. If you have any worsening or new symptoms, please return to the emergency room or call 911 Prescriptions: New ibuprofen 600 mg tablet 600 mg PO TID PRN (Reason: fever or pain) Qty: 14 0RF acetaminophen 500 mg tablet 500 mg PO QID PRN (Reason: fever or pain) Qty: 14 0RF No Action (DME) Adult Aerosol Mask Misc See Rx Instructions .ROUTE .MEDSUPPLY Qty: 1 0RF Rx Instructions: As directed clotrimazole [Antifungal (clotrimazole)] 1 % cream 1 appl topical BID 15 Days Qty: 30 0RF albuterol sulfate 2.5 mg /3 mL (0.083 %) solution for nebulization 2.5 mg inhalation Q6H PRN (Reason: shortness of breath or wheezing) 30 Days Qty: 180 0RF albuterol sulfate [ProAir HFA] 90 mcg/actuation HFA aerosol inhaler 1 puff inhalation QID PRN (Reason: wheezing) 30 Days Qty: 8.5 3RF ibuprofen 800 mg tablet 800 mg PO Q8H PRN (Reason: pain) 10 Days Qty: 30 2RF omeprazole 40 mg capsule,delayed release(DR/EC) 40 mg PO DAILY Qty: 30 3RF cephalexin 500 mg capsule 500 mg PO QID 10 Days Qty: 40 0RF doxycycline hyclate 100 mg tablet 100 mg PO BID Qty: 20 0RF oxycodone 5 mg tablet 5 mg PO Q6H PRN (Reason: pain) Qty: 20 0RF Rx Instructions: Partial Fill upon patient request. sertraline 25 mg tablet 25 mg PO DAILY 30 Days Qty: 30 3RF sulfamethoxazole-trimethoprim [Bactrim DS] 800-160 mg tablet 1 tab PO Q12H Qty: 8 0RF Rx Instructions: to replace lost tablets
[2023-04-23] MEDS: Ibuprofen 600 MG TABLET PO (00:03)
[2023-04-23] MEDS: 0.9 % Sodium Chloride 1,000 ML 999 ML IVCONT (00:04)
[2023-04-23] MEDS: Magnesium Sulfate/H2O 2 GM/50 ML PIGGYBACK IV (00:04)
[2023-04-23 00:05] LABS: Hemoglobin 13.8 g/dl (14.0-18.0); Mean Corpuscular HGB Conc 35.4 g/dl (31.0-36.0); Mean Corpuscular Hemoglobin 29.2 pg (27.0-33.0); Mean Corpuscular Volume 82.6 fL (80.0-98.0); Mean Platelet Volume 9.9 fL (9.4-12.4); Platelet Count 198 X10*3/uL (160-400); Red Blood Count 4.72 X10*6/uL (4.60-5.80); Red Cell Distribution Width 11.9 % (11.0-16.0); White Blood Count 7.1 X10*3/uL (4.8-10.8)
[2023-04-23 00:12] LABS: Influenza A PCR NEGATIVE (Negative); Influenza B PCR NEGATIVE (Negative); Resp Syncy Virus RNA Qual PCR NEGATIVE (Negative); SARS COV2 PCR INHOUSE NEGATIVE (Negative)
[2023-04-23] MEDS: Albuterol Sulfate 2.5 MG, Albuterol Sulfate (0.083%) 2.5 MG 5 MG INHALE (00:25)
[2023-04-23 00:26] VITALS: PULSE 98; RESP 18; O2SAT 98
[2023-04-23 00:34] LABS: SLIDE REVIEW MANUAL DIFF
[2023-04-23 00:44] LABS: Neutrophils Percent Manual 24 % (45-73)
[2023-04-23 00:46] LABS: Atypical Lymph Absolute Manual 0.4 x10*3/uL; Atypical Lymphs Percent Manual 5 % (0-6); Band Neutrophils Percent 22 % (3-5); Basophils Abs Manual 0.2 X10*3/uL (0.0-0.2); Basophils Percent Manual 3 % (0-2); Eosinophils Absolute Manual 0.1 X10*3/uL (0.0-0.4); Eosinophils Percent Manual 2 % (0-4); Lymphocytes Absolute Manual 2.4 X10*3/uL (1.2-4.9); Lymphocytes Percent Manual 34 % (20-40); Metamyelocytes Absolute 0.1 X10*3/uL; Metamyelocytes Percent 1 %; Monocytes Absolute Manual 0.6 X10*3/uL (0.1-1.2); Monocytes Percent Manual 8 % (2-11); Myelocytes Absolute 0.1 X10*/uL; Myelocytes Percent 1 %; Neutrophils Absolute Manual 3.3 X10*3/uL (2.0-8.3)
[2023-04-23 00:47] LABS: Platelet Estimate NORMAL (NORMAL); RBC Morphology NORMAL
[2023-04-23 00:48] LABS: Platelet Morphology Comment NORMAL
[2023-04-23 00:58] VITALS: BP 131/50; PULSE 122; RESP 15; TEMP 38.6; O2SAT 99
[2023-04-23 01:19] LABS: Lactic Acid 2.1 mmol/L (0.5-2.0)
[2023-04-23 01:53] LABS: Reflex Lactate? Lactic Acid Added
[2023-04-23 02:05] VITALS: PULSE 105; RESP 14; TEMP 37.4; O2SAT 99
== END 2023-04-23 02:17 | disposition home or self-care (01) ==
PROVIDERS: Emergency Provider Emergency Medicine
DX: B34.9 Viral infection, unspecified (principal); R05.9 Cough, unspecified; Z11.52 Encounter for screening for COVID-19; Z20.828 Contact with and (suspected) exposure to other viral communicable diseases; J45.909 Unspecified asthma, uncomplicated; Z79.899 Other long term (current) drug therapy
CPT/HCPCS: 0241U; 36415; 71045; 80053; 83605; 85007; 85025; 85027; 87040; 94640; 96365; 96366; 99284; 99285; J3475

== ENCOUNTER 2023-04-26 14:35 | Emergency (ER) | payer OTHER, SELFPAY ==
--- NOTE | ~2023-04-26 | XR_ITS ---
EXAMINATION: XR CHEST 2 VIEWS CLINICAL INFORMATION: Fever and cough. COMPARISON: Prior chest radiographs, most recently 04/22/2023. TECHNIQUE: Frontal and lateral views of the chest were obtained. FINDINGS: The heart, great vessels, pulmonary vasculature and mediastinum are normal. The lungs show no focal infiltrate, effusion or pneumothorax. There is no acute osseous abnormality. There are right upper quadrant surgical clips. XR/XR chest 2V IMPRESSION: No active cardiopulmonary disease.
--- NOTE | 2023-04-26 14:41 | ED_ITS ---
HPI - URI/Sore Throat General Chief Complaint: General Medical Stated Complaint: high fever coughing asthma Time Seen by Provider: 04/26/23 15:05 Source: patient Mode of arrival: ambulatory Limitations: no limitations History of Present Illness HPI Narrative: Patient comes to the emergency room complaining of fever, cough. Patient states he has history of asthma. Patient states that he took Motrin earlier this morning. Patient denies chest pain or shortness of breath at this time. Related Data Previous Rx's Medication Instructions Recorded nebulizer accessories (Adult #1 ea 09/22/20 Aerosol Mask) sertraline 25 mg tablet 25 mg PO DAILY 30 days #30 tabs 02/22/21 clotrimazole 1 % topical cream 1 appl topical BID 15 days #30 02/25/21 (Antifungal (clotrimazole)) grams albuterol sulfate 2.5 mg/3 mL 2.5 mg (3 mL) inhalation Q6H PRN 04/29/21 (0.083 %) solution for nebulization shortness of breath or wheezing 30 days #180 mL albuterol sulfate 90 mcg/actuation 1 puff inhalation QID PRN wheezing 03/31/22 aerosol inhaler (ProAir HFA) 30 days #8.5 grams ibuprofen 800 mg tablet 800 mg PO Q8H PRN pain 10 days #30 05/13/22 tabs sulfamethoxazole 800 1 tab PO Q12H #8 tabs 06/14/22 mg-trimethoprim 160 mg tablet (Bactrim DS) cephalexin 500 mg capsule 500 mg PO QID 10 days #40 caps 06/15/22 doxycycline hyclate 100 mg tablet 100 mg PO BID #20 tabs 06/15/22 oxycodone 5 mg tablet 5 mg PO Q6H PRN pain #20 tabs 06/15/22 omeprazole 40 mg capsule,delayed 40 mg PO DAILY #30 caps 11/08/22 release acetaminophen 500 mg tablet 500 mg PO QID PRN fever or pain 04/23/23 #14 tabs ibuprofen 600 mg tablet 600 mg PO TID PRN fever or pain 04/23/23 #14 tabs Allergies Allergy/AdvReac Type Severity Reaction Status Date / Time Iodinated Contrast Media Allergy Unknown RASH/GENERALIZED Verified 04/26/23 14:51 [IV CONTRAST] REDNESS methylprednisolone Allergy Unknown ANAPHYLAXIS Verified 04/26/23 14:51 [From SOLU-MEDROL] Review of Systems 2 Review of Systems: Constitutional : No Weight loss, complaining of Fever, No Chills, No Night Sweats, No Fatigue, No Malaise ENT/Mouth : No Hearing loss, No Ear Pain, No Nasal Congestion, No Sinus Pain, No Hoarseness, No sore throat, No Rhinorrhea, No Swallowing Difficulty Eyes: No Eye Pain, No Swelling, No Redness, No Foreign Body, No Discharge, No Vision Changes Cardiovascular : No Chest Pain, No SOB, No Dyspnea on Exertion, No Orthopnea, No Edema, No Palpitations Respiratory : Complaining of dry cough, complaining of intermittent wheezing that response to albuterol treatments, No Smoke Exposure, No Dyspnea Gastrointestinal : No Nausea, No Vomiting, No Diarrhea, No Constipation, No abdominal Pain, No Hematochezia, No Melena Genitourinary : no irregular bleeding, No Dysuria, No Urinary Frequency, No Hematuria, No Urinary Incontinence, No Urgency, No Flank Pain, No Urinary Flow Changes, No Hesitancy Musculoskeletal : No joint pain, No Myalgias, No Joint Swelling Skin : No Skin Lesions, No rash Neuro : No Weakness, No Numbness, No Paresthesias, No Loss of Consciousness, No Dizziness, No Headache Psych : No Anxiety/Panic, No Depression, No SI/HI/AH/VH, No Social Issues, Heme/Lymph: No Bruising, No Bleeding,No Lymphadenopathy Endocrine : No Polyuria, No Polydipsia, No Temperature Intolerance PMFSH Past Medical History Medical History GERD (gastroesophageal reflux disease) Asthma Anxiety Gallstones Chronic lower back pain Surgical History History of excision of pilonidal cyst History of cholecystectomy History of excision of mass Corneal transplant status History of bilateral cataract extraction History of eye surgery Family History Family History Father No problems noted. Mother Asthma Diabetes Hypertension Hyperlipidemia Maternal Aunt Breast cancer Chronic mental illness Paternal Aunt Cancer Maternal Uncle Leukemia Family/Other Chronic mental illness Social History Social History Household Members: Spouse and Children Housing: House Do you presently have visiting nurse or other home services: Yes ([employer]) Alcohol intake: current Alcohol intake frequency: holidays/special occasions only Patient Tobacco Use Status: Never used Tobacco e-Cigarette/Vaping Use: Never Used Second Hand Smoke Exposure: No Substance Use Type: Marijuana Advance Directives: No Advance Directives Information Provided: No service: No Current occupational status: disabled Physical Exam 2 Vital Signs: Vital Signs: Last Vital Signs Temp 98 F 04/26/23 21:16 Pulse 113 H 04/26/23 21:16 Resp 20 04/26/23 21:16 BP 130/84 04/26/23 21:16 Pulse Ox 99 04/26/23 21:16 O2 Del Method Room Air 04/26/23 21:16 BMI result Body Mass Index 31.3 Const: Other: Appearance: Alert. Oriented X3. No acute distress. Eyes: Pupils equal, round and reactive to light. ENT: Pharynx normal. Neck: Normal inspection. Neck supple. No lymph nodes noted. No crepitus CVS: Normal heart rate and rhythm. Pulses normal. Normal S1 and S2 Respiratory: No respiratory distress. Breath sounds normal. No Wheezing. No rales Abdomen: Soft and nontender. No rigidity. No distention. Skin: Skin warm and dry. Normal skin color. Normal skin turgor. Extremities: No lower extremity edema. No Lacerations. No Rash Neuro: Oriented X 3. No motor deficit. No sensory deficit. Moving all extremities. No slurred speech. CN 2 through 12 grossly intact Psych: calm, cooperative, normal affect Course Course Course Narrative: RME: 32 year-old M w/ PMHx GERD, asthma, anxiety, gallstones, legally blind presenting to the ED c/o dry cough, fever (Tmax 103), wheezing, chills, decreased PO intake w/N/V x10 days. Took Motrin around 10:40AM. Patient was seen in our ED on 04/22/23 for similar sx Dx viral syndrome. states called his PCP and was told to come back to the ED tachycardic 120's, febrile 100.6 EKG, Labs, viral testing, rapid strep, CXR ordered Full HPI, ROS and PE to be performed by primary ED provider. Medications Administered Discontinued Medications Generic Name Dose Route Start Last Admin Trade Name Freq PRN Reason Stop Dose Admin Acetaminophen 650 mg 04/26/23 15:05 04/26/23 23:05 Acetaminophen 325 Mg Tablet PO 04/26/23 15:06 Not Given ONCE ONE Medical Decision Making Medical Decision Making [facility] Narrative: -my interpretation of chest x-ray: No signs of pneumonia, no infiltrate -patient likely having bronchitis. -my interpretation of labs: White blood cell count slightly elevated 12.7, likely reactive leukocytosis. Chemistry within normal limits, lactic acid normal. Serology negative for COVID influenza RSV and strep -patient is warm to touch, patient likely speaking another fever, causing tachycardia. Patient being given Tylenol and Motrin. -Wells score for pulmonary embolism is 0 Differential Diagnosis Differential Diagnoses: The differential diagnosis associated with the presentation includes (Bronchiolitis, bronchitis, pneumonia, influenza, COVID, asthma) Lab Data [facility] Lab Attestation statement: I reviewed the patient's lab results. 04/26/23 15:38 04/26/23 15:38 Labs: Lab Results 04/26/23 04/26/23 04/26/23 Range/Units 15:27 15:28 15:38 WBC 12.7 H (4.8-10.8) X10*3/uL RBC 4.89 (4.60-5.80) X10*6/uL Hgb 14.1 (14.0-18.0) g/dl Hct 40.5 L (42.0-52.0) % MCV 82.8 (80.0-98.0) fL MCH 28.8 (27.0-33.0) pg MCHC 34.8 (31.0-36.0) g/dl RDW 12.2 (11.0-16.0) % Plt Count 210 (160-400) X10*3/uL MPV 9.9 (9.4-12.4) fL Immature Gran % (Auto) Cancelled Neut % (Auto) Cancelled Lymph % (Auto) Cancelled [place]ade % (Auto) Cancelled Eos % (Auto) Cancelled Baso % (Auto) Cancelled Lymph # (Auto) Cancelled [place] # (Auto) Cancelled Eos # (Auto) Cancelled Baso # (Auto) Cancelled Abs Immat Gran (auto) Cancelled Absolute Neuts (auto) Cancelled Absolute Nucleated RBC 0.000 (0.0-0.012) X10*3/uL Nucleated RBC % (auto) 0.0 (0.0-0.2) /100WBC Neutrophils % (Manual) 47 (45-73) % Band Neutrophils % 1 L (3-5) % Lymphocytes % (Manual) 25 (20-40) % Atypical Lymphs % (Man) 15 H (0-6) % Monocytes % (Manual) 12 H (2-11) % Abs Neuts (Manual) 6.1 (2.0-8.3) X10*3/uL Lymphocytes # (Manual) 3.2 (1.2-4.9) X10*3/uL Atyp Lymphs # (Manual) 1.9 x10*3/uL Monocytes # (Manual) 1.5 H (0.1-1.2) X10*3/uL Smudge Cells PRESENT Toxic Vacuolation PRESENT WBC Morphology Comment DYSMORPHIC Platelet Estimate NORMAL (NORMAL) Plt Morphology Comment NORMAL RBC Morphology NORMAL Sodium 137 (135-145) mmol/L Potassium 3.7 (3.3-5.1) mmol/L Chloride 104 (96-108) mmol/L Carbon Dioxide 20 L (22-29) mmol/L Anion Gap 17 (12-20) BUN 12 (9-16) mg/dL Creatinine 0.82 (0.5-1.4) mg/dL Estim Creat Clear Calc 144.7 Estimated GFR > 60 Random Glucose 108 (60-115) mg/dL Lactic Acid 1.4 (0.5-2.0) mmol/L Calcium 8.9 (8.4-10.2) mg/dL Magnesium 2.0 (1.6-2.6) mg/dL Total Bilirubin 1.0 (0.0-1.0) mg/dL Direct Bilirubin 0.4 (0.0-0.5) mg/dL AST 44 H (5-37) U/L ALT 78 H (0-40) U/L Alkaline Phosphatase 88 (39-117) U/L Total Protein 7.7 (6.5-8.0) g/dL Albumin 4.0 (3.5-5.0) g/dL Urine Color Dark Yellow Urine Appearance Clear Urine pH 6.5 (5.0-9.0) Ur Specific [place] 1.025 (1.005-1.025) Urine Protein 30 (1+) H (Neg-Trace) mg/dL Urine Glucose (UA) Negative (Negative) mg/dL Urine Ketones 80 (Negative) mg/dL Urine Blood Negative (Negative) Urine Nitrite Negative (Negative) Ur Leukocyte Esterase Trace H (Negative) Urine RBC 0-2 (0-2) /HPF Urine WBC 0-5 (0-5) /HPF Ur Squamous Epith Cells 0-2 (0-2) /HPF Urine Bacteria None Seen (None Seen) Hyaline Casts 0-2 (0-2) /LPF Influenza Type A (PCR) NEGATIVE (Negative) Influenza Type B (PCR) NEGATIVE (Negative) RSV RNA Qual (PCR) NEGATIVE (Negative) SARS-CoV-2 RNA (RT-PCR) NEGATIVE (Negative) S. pyogenes GrpA ESTEFANÍA Negative (Negative) Independent Interpretation I performed an independent interpretation of an: Plain X-Ray Radiology Impression Discussion of test interpretation with radiology: I have reviewed the radiologist's reading. Radiologist Impression: FINDINGS: The heart, great vessels, pulmonary vasculature and mediastinum are normal. The lungs show no focal infiltrate, effusion or pneumothorax. There is no acute osseous abnormality. There are right upper quadrant surgical clips. XR/XR chest 2V IMPRESSION: No active cardiopulmonary disease. Discharge Plan Discharge Clinical Impression: Bronchitis Patient Disposition: Home, Self-Care Instructions: Acute Bronchitis (ED) Additional Instructions: Please follow-up with your primary care physician tomorrow. If you have any worsening or new symptoms, please return to the emergency room or call 911 Prescriptions: No Action (DME) Adult Aerosol Mask Misc See Rx Instructions .ROUTE .MEDSUPPLY Qty: 1 0RF Rx Instructions: As directed clotrimazole [Antifungal (clotrimazole)] 1 % cream 1 appl topical BID 15 Days Qty: 30 0RF albuterol sulfate 2.5 mg /3 mL (0.083 %) solution for nebulization 2.5 mg inhalation Q6H PRN (Reason: shortness of breath or wheezing) 30 Days Qty: 180 0RF albuterol sulfate [ProAir HFA] 90 mcg/actuation HFA aerosol inhaler 1 puff inhalation QID PRN (Reason: wheezing) 30 Days Qty: 8.5 3RF ibuprofen 800 mg tablet 800 mg PO Q8H PRN (Reason: pain) 10 Days Qty: 30 2RF omeprazole 40 mg capsule,delayed release(DR/EC) 40 mg PO DAILY Qty: 30 3RF ibuprofen 600 mg tablet 600 mg PO TID PRN (Reason: fever or pain) Qty: 14 0RF acetaminophen 500 mg tablet 500 mg PO QID PRN (Reason: fever or pain) Qty: 14 0RF cephalexin 500 mg capsule 500 mg PO QID 10 Days Qty: 40 0RF doxycycline hyclate 100 mg tablet 100 mg PO BID Qty: 20 0RF oxycodone 5 mg tablet 5 mg PO Q6H PRN (Reason: pain) Qty: 20 0RF Rx Instructions: Partial Fill upon patient request. sertraline 25 mg tablet 25 mg PO DAILY 30 Days Qty: 30 3RF sulfamethoxazole-trimethoprim [Bactrim DS] 800-160 mg tablet 1 tab PO Q12H Qty: 8 0RF Rx Instructions: to replace lost tablets
[2023-04-26 14:51] VITALS: BP 113/64; PULSE 122; RESP 16; TEMP 38.1; O2SAT 99; BMI 31.3
[2023-04-26 15:43] VITALS: BP 101/49; PULSE 87; RESP 16; TEMP 36.2; O2SAT 97
--- NOTE | 2023-04-26 15:44 | MHC.EDTECH ---
PATIENT STREP SWAB ,RSV SWAB,BLOOD DRAW ,BOTH SETS OF BLOOD CULTURE ,AND LACTIC ACID DRAWN AND SENT TO LAB ,PATIENT BECAME DIZZY AFTER BLOOD DRAWN ,VITALS TAKEN ,[employer] LUX AWARE .
[2023-04-26 15:49] LABS: Appearance Urine Clear; Color Urine Dark Yellow; Glucose Urine UA Negative (Negative); Leukocyte Esterase Urine Trace (Negative); Nitrite Urine Negative (Negative); PH 6.5 (5.0-9.0); Specific Gravity - Urine 1.025 (1.005-1.025); UMIC TRIGGER UACC YES; Urine Blood Negative (Negative); Urine Ketones 80 mg/dL (Negative); Urine Protein 30 (1+) mg/dL (Neg-Trace)
[2023-04-26 15:53] LABS: Hematocrit 40.5 % (42.0-52.0); Hemoglobin 14.1 g/dl (14.0-18.0); Mean Corpuscular HGB Conc 34.8 g/dl (31.0-36.0); Mean Corpuscular Hemoglobin 28.8 pg (27.0-33.0); Mean Corpuscular Volume 82.8 fL (80.0-98.0); Mean Platelet Volume 9.9 fL (9.4-12.4); PLT CLUMP 1; Red Blood Count 4.89 X10*6/uL (4.60-5.80); Red Cell Distribution Width 12.2 % (11.0-16.0)
[2023-04-26 15:56] LABS: IDNOW Serial# 58CA691E; Strep A Nucleic Acid Negative (Negative)
[2023-04-26 16:06] LABS: Lactic Acid 1.4 mmol/L (0.5-2.0)
[2023-04-26 16:12] LABS: Alanine Aminotransferase 78 U/L (0-40); Alkaline Phosphatase 88 U/L (39-117); Anion Gap 17 (12-20); Aspartate Amino Transferase 44 U/L (5-37); Bilirubin Direct 0.4 mg/dL (0.0-0.5); Blood Urea Nitrogen 12 mg/dL (9-16); Calcium 8.9 mg/dL (8.4-10.2); Carbon Dioxide 20 mmol/L (22-29); Chloride 104 mmol/L (96-108); Creatinine Clr Calc Pharmacy 144.7; Estimated Glomerular Filt Rate > 60; Glucose Random 108 mg/dL (60-115); Potassium 3.7 mmol/L (3.3-5.1); Sodium 137 mmol/L (135-145); Total Protein 7.7 g/dL (6.5-8.0)
[2023-04-26 16:16] LABS: Bacteria Urine None Seen (None Seen); Hyaline Casts Urine 0-2 /LPF (0-2); RBC Urine 0-2 /HPF (0-2); Squamous Epithelial Cell Urine 0-2 /HPF (0-2); WBC Urine 0-5 /HPF (0-5)
[2023-04-26 16:32] LABS: Influenza A PCR NEGATIVE (Negative); Influenza B PCR NEGATIVE (Negative); Resp Syncy Virus RNA Qual PCR NEGATIVE (Negative); SARS COV2 PCR INHOUSE NEGATIVE (Negative)
[2023-04-26 16:33] LABS: Atypical Lymphs Percent Manual 15 % (0-6); Band Neutrophils Percent 1 % (3-5); Lymphocytes Percent Manual 25 % (20-40); Monocytes Percent Manual 12 % (2-11); Neutrophils Percent Manual 47 % (45-73); Platelet Estimate NORMAL (NORMAL); Platelet Morphology Comment NORMAL
[2023-04-26 16:34] LABS: RBC Morphology NORMAL; Smudge Cells PRESENT; Toxic Vacuolation PRESENT; WBC Morphology Comment DYSMORPHIC
[2023-04-26 16:35] LABS: Atypical Lymph Absolute Manual 1.9 x10*3/uL; Lymphocytes Absolute Manual 3.2 X10*3/uL (1.2-4.9); Monocytes Absolute Manual 1.5 X10*3/uL (0.1-1.2); Neutrophils Absolute Manual 6.1 X10*3/uL (2.0-8.3); Platelet Count 210 X10*3/uL (160-400); White Blood Count 12.7 X10*3/uL (4.8-10.8)
[2023-04-26 21:14] VITALS: BP 130/84; PULSE 113; RESP 20; TEMP 36.6; O2SAT 99
[2023-04-26 21:16] VITALS: BP 130/84; PULSE 113; RESP 20; TEMP 36.6; O2SAT 99
[2023-04-27] MEDS: Ibuprofen 600 MG TABLET PO (01:16)
[2023-04-27] MEDS: Acetaminophen 325 MG TABLET 975 MG PO (01:16)
[2023-04-27 01:19] VITALS: BP 130/78; PULSE 98; RESP 15; TEMP 36.7; O2SAT 98
== END 2023-04-27 01:20 | disposition home or self-care (01) ==
PROVIDERS: Physician Assistant; Emergency Provider Emergency Medicine; PCP Internal Medicine
DX: J40 Bronchitis, not specified as acute or chronic (principal); R50.9 Fever, unspecified; R00.0 Tachycardia, unspecified; Z11.52 Encounter for screening for COVID-19; Z20.828 Contact with and (suspected) exposure to other viral communicable diseases
CPT/HCPCS: 0241U; 36415; 71046; 80048; 80076; 81001; 83605; 83735; 85007; 85025; 85027; 87040; 87651; 99283; 99284

== ENCOUNTER 2024-03-11 11:41 | Emergency (ER) | payer OTHER, SELFPAY ==
--- NOTE | ~2024-03-11 | XR_ITS ---
EXAMINATION: XR CHEST CLINICAL INFORMATION: Coughing. pneumonia? COMPARISON: X-ray dated April 26, 2023. TECHNIQUE: Frontal view of the chest was obtained. FINDINGS: Low lung volume. Patchy opacities, perihilar. No pleural effusion or pneumothorax. Cardiomediastinal silhouette size is normal. Osseous structures are grossly intact. XR/XR chest 1V IMPRESSION: Questionable airspace disease, right middle lung lobe. Electronically signed by: Tres Escobar MD 03/11/2024 12:11 PM [place]
[2024-03-11 11:44] VITALS: BP 126/56; PULSE 99; RESP 24; TEMP 36.7; O2SAT 98; BMI 33.4
--- NOTE | 2024-03-11 11:49 | ED_ITS ---
HPI - General Adult General Chief complaint: Dyspnea Stated complaint: asthma Time Seen by Provider: 03/11/24 12:51 Source: patient Mode of arrival: ambulatory Limitations: no limitations History of Present Illness ED Provider: Betina Benavides PA-C HPI narrative: Patient is a 33 year old assigned male at with a history of DANILO and asthma presenting to the emergency department today with a cough and shortness of breath. Patient states that over the last few days he has had worsening shortness of breath and coughing. Patient denies any dizziness, lightheadedness, abdominal pain, nausea, vomiting, fever, chills, blurry vision, double vision, loss of vision, chest pain, back pain, night sweats, pain with urination, increased urinary frequency, increased urinary urgency, blood in his urine or stool, syncope or a near syncopal episode, recent trauma or falls, bowel incontinence, bladder incontinence, or any other complaints at this time. Onset (ago): day(s) Relieving factors: none Exacerbating factors: none Associated symptoms: cough and shortness of breath Treatments prior to arrival: none Related Data Previous Rx's ?Medication ?Instructions ?Recorded nebulizer accessories (Adult #1 ea 09/22/20 Aerosol Mask) sertraline 25 mg tablet 25 mg PO DAILY 30 days #30 tabs 02/22/21 clotrimazole 1 % topical cream 1 appl topical BID 15 days #30 02/25/21 (Antifungal (clotrimazole)) grams albuterol sulfate 2.5 mg/3 mL 2.5 mg (3 mL) inhalation Q6H PRN 04/29/21 (0.083 %) solution for nebulization shortness of breath or wheezing 30 days #180 mL albuterol sulfate 90 mcg/actuation 1 puff inhalation QID PRN wheezing 03/31/22 aerosol inhaler (ProAir HFA) 30 days #8.5 grams ibuprofen 800 mg tablet 800 mg PO Q8H PRN pain 10 days #30 05/13/22 tabs sulfamethoxazole 800 1 tab PO Q12H #8 tabs 06/14/22 mg-trimethoprim 160 mg tablet (Bactrim DS) cephalexin 500 mg capsule 500 mg PO QID 10 days #40 caps 06/15/22 doxycycline hyclate 100 mg tablet 100 mg PO BID #20 tabs 06/15/22 oxycodone 5 mg tablet 5 mg PO Q6H PRN pain #20 tabs 06/15/22 omeprazole 40 mg capsule,delayed 40 mg PO DAILY #30 caps 11/08/22 release acetaminophen 500 mg tablet 500 mg PO QID PRN fever or pain 04/23/23 #14 tabs ibuprofen 600 mg tablet 600 mg PO TID PRN fever or pain 04/23/23 #14 tabs doxycycline hyclate 100 mg tablet 100 mg PO BID 7 days #14 tabs 03/11/24 prednisone 20 mg tablet 20 mg PO DAILY 7 days #7 tabs 03/11/24 Allergies Allergy/AdvReac Type Severity Reaction Status Date / Time Iodinated Contrast Media Allergy Unknown RASH/GENERALIZED Verified 03/11/24 11:45 [IV CONTRAST] REDNESS methylprednisolone Allergy Unknown ANAPHYLAXIS Verified 03/11/24 11:45 [From SOLU-MEDROL] Review of Systems 2 Constitutional: Constitutional: Reports no additional constitutional complaints, Denies chills, Denies fever(s) and Denies night sweats Eyes: Eyes: Reports no additional eye complaints, Denies blurry vision, Denies change in vision, Denies diplopia, Denies eye discharge, Denies loss of vision and Denies eye pain ENT: Denies dizziness Cardiovascular: Cardiovascular: Reports no additional cardiovascular complaints, Denies chest pain, Denies lightheadedness, Denies Loss of Consciousness and Reports dyspnea Respiratory: Respiratory: Reports no additional respiratory complaints, Reports cough and Reports dyspnea Gastrointestinal: Gastrointestinal: Reports no additional gastrointestinal complaints, Denies abdominal pain, Denies melena, Denies hematochezia, Denies change in bowel habits and Denies change in stool character Genitourinary: Genitourinary: Reports no additional male genitourinary complaints, Denies hematuria, Denies oliguria, Denies difficulty urinating, Denies dysuria, Denies urinary frequency, Denies urinary hesitancy, Denies urinary incontinence and Denies urinary urgency Musculoskeletal: Musculoskeletal: Reports no additional musculoskeletal complaints, Denies numbness and Denies tingling Neurologic: Denies dizziness, Denies loss of vision, Denies numbness and Denies tingling Psychiatric: Psychiatric: Reports no additional psychiatric complaints Endocrine: Endocrine: Reports no additional endocrine complaints Hematologic/Lymphatic: Hematologic/Lymphatic: Reports no additional hematologic/lymphatic complaints Allergic/Immunologic: Allergic/Immunologic: Reports no additional allergic/immunologic complaints [facility] Past Medical History Attestation statement: The following information was validated with the patient. Source: old records reviewed and nursing notes reviewed Medical History GERD (gastroesophageal reflux disease) Asthma Anxiety Gallstones Chronic lower back pain Surgical History History of excision of pilonidal cyst History of cholecystectomy History of excision of mass Corneal transplant status History of bilateral cataract extraction History of eye surgery Family History Family History Father No problems noted. Mother Asthma Diabetes Hypertension Hyperlipidemia Maternal Aunt Breast cancer Chronic mental illness Paternal Aunt Cancer Maternal Uncle Leukemia Family/Other Chronic mental illness Social History Social History Household Members: Spouse and Children Housing: House Do you presently have visiting nurse or other home services: Yes ([employer]) Alcohol intake: current Alcohol intake frequency: holidays/special occasions only Patient Tobacco Use Status: Never used Tobacco e-Cigarette/Vaping Use: Never Used Second Hand Smoke Exposure: No Substance Use Type: Marijuana Advance Directives: No Advance Directives Information Provided: Yes service: No Current occupational status: disabled Physical Exam ED Vital Signs: Vital Signs - 24 hr 03/11/24 11:44 03/11/24 12:26 03/11/24 13:56 Temperature 98.1 F 98.4 F Pulse Rate 99 109 H 97 Respiratory Rate 24 H 22 H 16 Blood Pressure 126/56 L 142/78 H Pulse Oximetry 98 98 Oxygen Delivery Method Room Air BMI result Body Mass Index 33.4 Const General: cooperative, no acute distress, alert and awake Nutritional Appearance: well nourished Orientation/consciousness: patient oriented x3 Limitations: no limitations HENMT Head: Yes normal to inspection and Yes atraumatic Ears: hearing grossly normal bilaterally and external ears normal General nose exam: Normal external nose present, no nasal discharge noted and no epistaxis Face and sinus: Yes normal facial exam, No abrasion and No laceration Mouth: Normal oral and palatal mucosa present, no drooling and no muffled voice Eyes General: appearance normal, both eyes and all related structures Periorbital: periorbital findings normal Eyelids: Yes eyelids normal Conjunctivae: conjunctivae normal Pupils: Equal, round and reactive pupils present EOM: EOMs intact bilaterally Neck Neck: Yes normal visual inspection, Yes full ROM and Yes no lymphadenopathy Chest Chest palpation & inspection: normal inspection of the chest Resp Effort & Inspection: normal respiratory effort and able to speak in complete sentences Auscultation: wheezes scattered wheezes and throughout GI Inspection: Yes normal to inspection Neuro General: patient oriented x3 and moves all extremities Cranial nerves: Yes Equal, round and reactive pupils present Cognition (Neuro): normal cognition Extrem General: Yes normal to inspection, Yes full ROM and Yes capillary refill normal Psych Appearance: grossly normal Mental Status: mental status grossly normal Affect: normal affect Attitude: cooperative Thought process: Normal thought process present Thought content: Normal thought content present Insight: Good insight present (Psych) Course Course Course Narrative: RME: 33-year-old male past medical of asthma presents to ED for shortness of breath coughing with green phlegm since Monday. Patient states no relief with the albuterol inhaler. Patient is positive for wheezing. X-ray SARs strep ED bronchodilator ordered. Medications Administered Discontinued Medications Generic Name Dose Route Start Last Admin Trade Name Freq PRN Reason Stop Dose Admin Albuterol Sulfate 5 mg/ 0 mg 03/11/24 12:23 03/11/24 12:25 Albuterol/Ipratropium 3 ml INHALE 03/11/24 12:24 1 each ONCE ONE Administration Prednisone 20 mg 03/11/24 13:33 03/11/24 13:49 Prednisone 20 Mg Tablet PO 03/11/24 13:34 20 mg ONCE ONE Administration Medical Decision Making Medical Decision Making [facility] Narrative: Patient is a 33 year old assigned male at with a history of asthma and anxiety presenting to the emergency department today with a cough and intermittent shortness of breath. Patient's physical exam was as noted in the physical exam portion of this note. Patient's blood work was unremarkable. Patient's chest x-ray showed questionable airspace disease in the right middle lobe. Patient's RSV test was positive. I explained my physical exam findings as well as all test results to the patient. I answered all questions asked by the patient. Patient received a breathing treatment which, upon re-evaluation, he stated it helped his symptoms significantly. I stressed the importance of the patient taking his medication as directed (either prescribed or as the over the counter packaging recommends). I stressed the importance of the patient following up with his primary care provider. I stressed the importance of the patient returning to the emergency department immediately if his symptoms were to worsen or if he were to develop any dizziness, shortness of breath, difficulty breathing, chest pain, blurry vision, loss of vision, nausea, vomiting, abdominal pain, fever, chills, back pain, or any other complaints. Patient verbalized agreement and understanding with this treatment plan and discharge. Differential Diagnosis Differential Diagnoses: The differential diagnosis associated with the presentation includes Pneumonia RSV Wheezing Asthma exacerbation Admission/Observation Consideration of admission/observation: Escalation of care including admission/observation considered Patient would have been admitted to the hospital had his work up had any findings where hospital admission was appropriate and his clinical presentation warranted hospital admission. Lab Data [facility] Lab Attestation statement: I reviewed the patient's lab results. My interpretation of these results are in the [facility] Rationale portion of this note. 03/11/24 12:21 03/11/24 12:21 Labs: Lab Results 03/11/24 Range/Units 12:21 WBC 8.2 (4.8-10.8) X10*3/uL RBC 5.00 (4.60-5.80) X10*6/uL Hgb 14.9 (14.0-18.0) g/dl Hct 43.4 (42.0-52.0) % MCV 86.8 (80.0-98.0) fL MCH 29.8 (27.0-33.0) pg MCHC 34.3 (31.0-36.0) g/dl RDW 11.7 (11.0-16.0) % Plt Count 246 (160-400) X10*3/uL MPV 9.2 L (9.4-12.4) fL Immature Gran % (Auto) 0.5 H (0.0-0.4) % Neut % (Auto) 55.6 (45-73) % Lymph % (Auto) 23.4 (20-40) % Weld % (Auto) 16.7 H (2-11) % Eos % (Auto) 3.3 (0-4) % Baso % (Auto) 0.5 (0-2) % Lymph # (Auto) 1.9 (1.2-4.9) X10*3/uL Weld # (Auto) 1.4 H (0.1-1.2) X10*3/uL Eos # (Auto) 0.3 (0.0-0.4) X10*3/uL Baso # (Auto) 0.0 (0.0-0.2) X10*3/uL Abs Immat Gran (auto) 0.04 H (0.00-0.03) X10*3/uL Absolute Neuts (auto) 4.6 (2.0-8.3) x10*3/uL Absolute Nucleated RBC 0.000 (0.0-0.012) X10*3/uL Nucleated RBC % (auto) 0.0 (0.0-0.2) /100WBC Sodium 142 (135-145) mmol/L Potassium 4.0 (3.3-5.1) mmol/L Chloride 109 H (96-108) mmol/L Carbon Dioxide 28 (22-29) mmol/L Anion Gap 9 L (12-20) BUN 16 (9-16) mg/dL Creatinine 0.88 (0.5-1.4) mg/dL Estim Creat Clear Calc 137.9 Estimated GFR > 60 Random Glucose 98 (60-115) mg/dL Calcium 9.6 D (8.4-10.2) mg/dL Total Bilirubin 0.7 (0.0-1.0) mg/dL AST 20 (5-37) U/L ALT 31 (0-40) U/L Alkaline Phosphatase 54 (39-117) U/L Total Protein 7.5 (6.5-8.0) g/dL Albumin 4.4 (3.5-5.0) g/dL Influenza Type A (PCR) NEGATIVE (Negative) Influenza Type B (PCR) NEGATIVE (Negative) RSV RNA Qual (PCR) POSITIVE A (Negative) SARS-CoV-2 RNA (RT-PCR) NEGATIVE (Negative) S. pyogenes GrpA ESTEFANÍA Negative (Negative) Independent Interpretation I performed an independent interpretation of an: Plain X-Ray Interpretation: My interpretation is in agreement with the radiologist's impression of this imaging study. L EXAMINATION: XR CHEST CLINICAL INFORMATION: Coughing. pneumonia? COMPARISON: X-ray dated April 26, 2023. TECHNIQUE: Frontal view of the chest was obtained. FINDINGS: Low lung volume. Patchy opacities, perihilar. No pleural effusion or pneumothorax. Cardiomediastinal silhouette size is normal. Osseous structures are grossly intact. XR/XR chest 1V IMPRESSION: Questionable airspace disease, right middle lung lobe. Electronically signed by: Tres Escobar MD 03/11/2024 12:11 PM EST Dictated By: Tres Rosenberg MD Signed By: Electronically signed by Tres Weir MD 03/11/24 1211 Radiology Impression Discussion of test interpretation with radiology: I have reviewed the radiologist's reading. Prescription Management I considered prescription management with: Antibiotic (patient prescribed an antibiotic for questionable PNA) Discharge Plan Discharge Clinical Impression: RSV (respiratory syncytial virus infection), Asthma exacerbation, PNA (pneumonia) Patient Disposition: Home, Self-Care Instructions: Respiratory Syncytial Virus (ED), Asthma (DC) Additional Instructions: Take your medication as prescribed. Follow up with your primary care provider. Return to the emergency department immediately if your symptoms worsen or if you develop any dizziness, shortness of breath, difficulty breathing, chest pain, blurry vision, loss of vision, nausea, vomiting, abdominal pain, fever, chills, back pain, or any other complaints. [place] la medicaci?n seg?n lo prescrito. Tariq un seguimiento con jaquez m?dico de cabecera. Acuda inmediatamente al servicio de urgencias si ge s?ntomas empeoran o si presenta mareos, falta de aliento, dificultad para respirar, dolor tor?cico, visi?n borrosa, p?rdida de visi?n, n?useas, v?mitos, dolor abdominal, fiebre, escalofr?os, dolor de espalda o cualquier otra molestia. Prescriptions: New prednisone 20 mg tablet 20 mg PO DAILY 7 Days Qty: 7 0RF doxycycline hyclate 100 mg tablet 100 mg PO BID 7 Days Qty: 14 0RF No Action (DME) Adult Aerosol Mask Misc See Rx Instructions .ROUTE .MEDSUPPLY Qty: 1 0RF Rx Instructions: As directed clotrimazole [Antifungal (clotrimazole)] 1 % cream 1 appl topical BID 15 Days Qty: 30 0RF albuterol sulfate 2.5 mg /3 mL (0.083 %) solution for nebulization 2.5 mg inhalation Q6H PRN (Reason: shortness of breath or wheezing) 30 Days Qty: 180 0RF albuterol sulfate [ProAir HFA] 90 mcg/actuation HFA aerosol inhaler 1 puff inhalation QID PRN (Reason: wheezing) 30 Days Qty: 8.5 3RF ibuprofen 800 mg tablet 800 mg PO Q8H PRN (Reason: pain) 10 Days Qty: 30 2RF omeprazole 40 mg capsule,delayed release(DR/EC) 40 mg PO DAILY Qty: 30 3RF ibuprofen 600 mg tablet 600 mg PO TID PRN (Reason: fever or pain) Qty: 14 0RF acetaminophen 500 mg tablet 500 mg PO QID PRN (Reason: fever or pain) Qty: 14 0RF cephalexin 500 mg capsule 500 mg PO QID 10 Days Qty: 40 0RF doxycycline hyclate 100 mg tablet 100 mg PO BID Qty: 20 0RF oxycodone 5 mg tablet 5 mg PO Q6H PRN (Reason: pain) Qty: 20 0RF Rx Instructions: Partial Fill upon patient request. sertraline 25 mg tablet 25 mg PO DAILY 30 Days Qty: 30 3RF sulfamethoxazole-trimethoprim [Bactrim DS] 800-160 mg tablet 1 tab PO Q12H Qty: 8 0RF Rx Instructions: to replace lost tablets Referrals: [facility] [place] Family Medicine [Provider Group] (Call to establish and follow up with a primary care provider. If you already have a primary care provider, please follow up with them. Llame para establecer y hacer un seguimiento con un proveedor de atenci?n primaria. Si ya tiene un proveedor de atenci?n primaria, tariq un seguimiento con ?l.) [facility] [place] Primary Care, [place] [Provider Group] (Call to establish and follow up with a primary care provider. If you already have a primary care provider, please follow up with them. Llame para establecer y hacer un seguimiento con un proveedor de atenci?n primaria. Si ya tiene un proveedor de atenci?n primaria, tariq un seguimiento con ?l.) [facility] [place] Primary Care,[facility] [Provider Group] (Call to establish and follow up with a primary care provider. If you already have a primary care provider, please follow up with them. Llame para establecer y hacer un seguimiento con un proveedor de atenci?n primaria. Si ya tiene un proveedor de atenci?n primaria, tariq un seguimiento con ?l.) Interventions: ED Discharge Assessment Last Done: 03/11/24 13:56 Discharge Date/Time: 03/11/24 13:57 Print Language: [place]
[2024-03-11] MEDS: Albuterol Sulfate 5 MG, Albuterol/Iprat 2.5/0.5MG 3 ML 3 ML INHALE (12:25)
[2024-03-11 12:26] VITALS: PULSE 109; RESP 22; O2SAT 97
[2024-03-11 12:26] LABS: MANUAL DIFF FLAG NO
[2024-03-11 12:33] LABS: Basophils Percent Auto 0.5 % (0-2); Eosinophils Absolute Auto 0.3 X10*3/uL (0.0-0.4); Eosinophils Percent Auto 3.3 % (0-4); Hematocrit 43.4 % (42.0-52.0); Hemoglobin 14.9 g/dl (14.0-18.0); Imm Gran Abs Auto 0.04 X10*3/uL (0.00-0.03); Imm Gran Pct Auto 0.5 % (0.0-0.4); Lymphocytes Absolute Auto 1.9 X10*3/uL (1.2-4.9); Lymphocytes Percent Auto 23.4 % (20-40); Mean Corpuscular HGB Conc 34.3 g/dl (31.0-36.0); Mean Corpuscular Hemoglobin 29.8 pg (27.0-33.0); Mean Corpuscular Volume 86.8 fL (80.0-98.0); Mean Platelet Volume 9.2 fL (9.4-12.4); Monocytes Absolute Auto 1.4 X10*3/uL (0.1-1.2); Monocytes Percent Auto 16.7 % (2-11); Neutrophils Absolute Auto 4.6 x10*3/uL (2.0-8.3); Neutrophils Percent Auto 55.6 % (45-73); Platelet Count 246 X10*3/uL (160-400); Red Cell Distribution Width 11.7 % (11.0-16.0); White Blood Count 8.2 X10*3/uL (4.8-10.8)
[2024-03-11 12:36] LABS: IDNOW Serial# 58CA691E; Strep A Nucleic Acid Negative (Negative)
[2024-03-11 13:00] LABS: Albumin Level 4.4 g/dL (3.5-5.0); Alkaline Phosphatase 54 U/L (39-117); Anion Gap 9 (12-20); Aspartate Amino Transferase 20 U/L (5-37); Bilirubin Total 0.7 mg/dL (0.0-1.0); Blood Urea Nitrogen 16 mg/dL (9-16); Calcium 9.6 mg/dL (8.4-10.2); Carbon Dioxide 28 mmol/L (22-29); Chloride 109 mmol/L (96-108); Creatinine Clr Calc Pharmacy 137.9; Estimated Glomerular Filt Rate > 60; Glucose Random 98 mg/dL (60-115); Sodium 142 mmol/L (135-145); Total Protein 7.5 g/dL (6.5-8.0)
[2024-03-11 13:04] LABS: Influenza A PCR NEGATIVE (Negative); Influenza B PCR NEGATIVE (Negative); Resp Syncy Virus RNA Qual PCR POSITIVE (Negative); SARS COV2 PCR INHOUSE NEGATIVE (Negative)
[2024-03-11] MEDS: predniSONE 20 MG TABLET PO (13:49)
[2024-03-11 13:56] VITALS: BP 142/78; PULSE 97; RESP 16; TEMP 36.9; O2SAT 98
[2024-03-11 14:06] LABS: Alanine Aminotransferase 31 U/L (0-40)
== END 2024-03-11 13:57 | disposition home or self-care (01) ==
PROVIDERS: Physician Assistant; Emergency Provider Emergency Medicine Emergency Medical Services
DX: R05.9 Cough, unspecified (principal); R06.02 Shortness of breath; B97.4 Respiratory syncytial virus as the cause of diseases classified elsewhere; Z03.818 Encounter for observation for suspected exposure to other biological agents ruled out; J45.909 Unspecified asthma, uncomplicated
CPT/HCPCS: 0241U; 71045; 80053; 85025; 87651; 94640; 99283; 99284

== ENCOUNTER → 2024-03-11 11:47 | Outpatient (BNV) | payer OTHER, SELFPAY | PROVIDERS: Visit Provider Radiology Diagnostic Radiology | DX: R91.8 Other nonspecific abnormal finding of lung field (principal) | CPT/HCPCS: 71045 ==